=== PATIENT | female | born 1940 | race Caucasian/White ===

== ENCOUNTER → 2023-12-27 13:03 | Outpatient (REF) | payer OTHER, SELFPAY | LOC: RCS 13:03 | PROVIDERS: ATTENDING PHYSICIAN Nurse Practitioner Family; FAMILY PHYSICIAN Family Medicine; REFERRING PHYSICIAN Internal Medicine Cardiovascular Disease | DX: R07.9 Chest pain, unspecified (principal) | CPT/HCPCS: 93005 ==

== ENCOUNTER → 2023-12-31 11:19 | Outpatient (REF) | payer OTHER, SELFPAY | LOC: RAD 11:19 | PROVIDERS: ATTENDING PHYSICIAN Pain Medicine Interventional Pain Medicine; FAMILY PHYSICIAN Family Medicine | DX: M54.12 Radiculopathy, cervical region (principal) | CPT/HCPCS: 72040 ==

== ENCOUNTER → 2024-03-07 11:30 | Outpatient (REF) | payer OTHER, SELFPAY ==
[2024-03-07 12:32] LABS: % Basophils 0.9 % (0-2); % Eosinophils 1.8 % (0-6); % Immature Granulocytes 0.2 % (0-0.5); % Lymphocytes 21.5 % (20.5-51.1); % Monocytes 6.9 % (1.7-9.3); % Neutrophils 68.7 % (42.2-75.2); Absolute Eosinophils 0.1 10^3/uL (0-0.7); Absolute Monocytes 0.3 10^3/uL (0.1-0.6); Absolute Neutrophils 3.1 10^3/uL (1.4-6.5); Hematocrit 37.1 % (37.0-47.0); Hemoglobin 12.5 g/dL (12.0-16.0); Mean Corp Hgb Conc. 33.7 g/dL (33.0-37.0); Mean Corpuscular Hgb 33.4 pg (27.0-31.0); Mean Corpuscular Volume 99.2 fL (81.0-99.0); Mean Platelet Volume 9.6 fL (7.4-10.4); Nucleated Red Blood Cells % 0 %; Platelet Count 205 10^3/uL (130-400); Red Blood Cell Count 3.74 10^6/uL (4.20-5.40); Red Cell Dist. Width 12.7 % (11.5-14.5); White Blood Cell Count 4.5 10^3/uL (4.8-10.8)
[2024-03-07 13:17] LABS: Iron 150 ug/dl (37-170)
[2024-03-07 13:26] LABS: Percent Saturation 49 % (20-50); Total Iron Binding Capacity 306 ug/dl (265-497)
[2024-03-07 13:40] LABS: Ferritin 80.7 ng/ml (11.1-264.0)
== END ==
LOC: REG 11:30
PROVIDERS: ATTENDING PHYSICIAN Internal Medicine Hematology & Oncology; FAMILY PHYSICIAN Family Medicine
DX: R23.3 Spontaneous ecchymoses (principal); R79.9 Abnormal finding of blood chemistry, unspecified; D50.9 Iron deficiency anemia, unspecified; D52.8 Other folate deficiency anemias; D68.00 Von Willebrand disease, unspecified; D51.9 Vitamin B12 deficiency anemia, unspecified
CPT/HCPCS: 36415; 82728; 83540; 83550; 85025

== ENCOUNTER 2024-04-12 02:00 | Emergency (ER) | payer OTHER, SELFPAY ==
[2024-04-12 02:06] VITALS: BP 133/95
[2024-04-12 02:12] VITALS: BP 133/95; BMI 20.3
[2024-04-12 02:51] LABS: % Basophils 1.1 % (0-2); % Eosinophils 4.5 % (0-6); % Immature Granulocytes 0.3 % (0-0.5); % Lymphocytes 35.4 % (20.5-51.1); % Monocytes 7.9 % (1.7-9.3); % Neutrophils 50.8 % (42.2-75.2); Absolute Eosinophils 0.2 10^3/uL (0-0.7); Absolute Lymphocytes 1.3 10^3/uL (1.2-3.4); Absolute Monocytes 0.3 10^3/uL (0.1-0.6); Absolute Neutrophils 1.9 10^3/uL (1.4-6.5); Hematocrit 41.4 % (37.0-47.0); Hemoglobin 13.9 g/dL (12.0-16.0); Mean Corp Hgb Conc. 33.6 g/dL (33.0-37.0); Mean Corpuscular Hgb 33.7 pg (27.0-31.0); Mean Corpuscular Volume 100.2 fL (81.0-99.0); Mean Platelet Volume 9.6 fL (7.4-10.4); Nucleated Red Blood Cells % 0 %; Platelet Count 168 10^3/uL (130-400); Red Blood Cell Count 4.13 10^6/uL (4.20-5.40); Red Cell Dist. Width 13.3 % (11.5-14.5); White Blood Cell Count 3.8 10^3/uL (4.8-10.8)
[2024-04-12 03:00] VITALS: BP 108/85
[2024-04-12 03:09] LABS: ALT (SGPT) 20 U/L (0-35); AST (SGOT) 28 U/L (14-36); Albumin 4.4 g/dl (3.5-5.0); Alkaline Phosphatase 99 U/L (38-126); Blood Urea Nitrogen 17 mg/dl (7-17); Calcium 9.4 mg/dl (8.4-10.2); Carbon Dioxide 29 mmol/L (22-30); Chloride 104 mmol/L (98-107); Estimated Creatinine Clearance 47 ml/min; Glucose 90 mg/dl (70-99); Potassium 3.6 mmol/L (3.5-5.1); Sodium 140 mmol/L (135-145); Total Bilirubin 0.4 mg/dl (0.2-1.3); Total Protein 6.8 g/dl (6.3-8.2); eGFR > 60.00
[2024-04-12 03:21] LABS: Troponin I < 0.012 ng/ml
--- NOTE | 2024-04-12 03:26 | ED.GENMED ---
History of Present Illness
<PAUL Pena - Last Filed: 04/12/24 06:10>
General
Chief Complaint: Breathing Problem
Source: patient
Exam Limitations: none
Time Seen by Provider: 04/12/24 03:12
Travel History
Have you had any contact with someone who has COVID-19?: No
Do you have any symptoms of coronavirus? Fever > 100 degrees, chills, cough, shortness of breath, sore throat, loss of taste or smell, muscle aches, or headache?: Yes
Symptoms:: pulse ox 100%
History of Present Illness
History of Present Illness:
83 YO F with a PMH of AFIB managed with Eliquis and Diltiazem, lower blepharoplasty (March 2024) presents here today for SOB x 3 hours. Pt states she checked her pulse before going to bed with a reading of 110. At 12:45 a.m., she checked again, and it
was still elevated. Pt was worried and decided to call control room tender cardiology, and then after being instructed to come. Pt complained of chest congestion initially, but states it has subsided. Denies N,V, diaphoresis, and diarrhea.
Past History
<PAUL Pena - Last Filed: 04/12/24 06:10>
Past History
ED Past Medical History: Arrthythmia, HTN, Hypercholesterolemia, Valvular disease, Psychiatric and Other
ED Past Surgical History: Gynecological and Other
Social History
Tobacco: Non-smoker
Alcohol: Occasional
Drug: None
Personal:
Living: alone
Employment: Retired
Family History
Family History: Other (Noncontributory)
Review of Systems
<PAUL Pena - Last Filed: 04/12/24 06:10>
Review of Systems
Constitutional: Reports no symptoms
EENT: Reports no symptoms
Respiratory: Reports no symptoms
Cardiac: Reports other (Chest congestion)
ABD/GI: Reports no symptoms
: Reports no symptoms
Musculoskeletal: Reports no symptoms
Neurological: Reports no symptoms
Phy Exam
<Christi Lopez [facility] - Last Filed: 04/12/24 06:10>
Physical Exam
Physical Exam:
Normal S1 and S1, breath sounds are equal B/L
General Physical Exam
General Presentation: well appearing
General age: appears stated age
General Habitus: normal
General Mental: alert
Cardiovascular Exam
Cardiovascular Exam: regular rate/rhythm
Pulmonary Exam
Pulmonary Exam: lungs clear, no respiratory distress, no rales and no rhonchi
Scores
<Christi Lopez [facility] - Last Filed: 04/12/24 06:10>
Heart Failure Risk
Heart Failure Risk Score: Not Applicable
Course
<Christi Lopez [facility] - Last Filed: 04/12/24 06:10>
Orders/Labs/Results
Orders:
Orders
04/12/24 02:08
Electrocardiogram (*1) Urgent
Reason for Study: Other
Other Reason for Exam: Respiratory Distress
EKG- Treatment ONCE
04/12/24 02:19
Comprehensive Metabolic Panel Urgent
04/12/24 02:20
Complete Blood Count/With Diff Urgent
Troponin I Urgent
Abnormal Lab Results
04/12/24
02:20
WBC 3.8 L 10^3/uL
(4.8-10.8)
RBC 4.13 L 10^6/uL
(4.20-5.40)
MCV 100.2 H fL
(81.0-99.0)
MCH 33.7 H pg
(27.0-31.0)
04/12/24 02:20
04/12/24 02:19
Vital Signs
Initial and Last Documented VS:
Initial Vital Signs
BP
133/95
04/12/24 02:06
Last Documented Vital Signs
Temp Pulse Resp BP Pulse Ox
97.5 F 67 19 108/85 99
04/12/24 02:12 04/12/24 03:00 04/12/24 03:00 04/12/24 03:00 04/12/24 02:45
<Sam Jiang, DO - Last Filed: 04/12/24 04:31>
Orders/Labs/Results
Orders:
Orders
04/12/24 02:08
Electrocardiogram (*1) Urgent
Reason for Study: Other
Other Reason for Exam: Respiratory Distress
EKG- Treatment ONCE
04/12/24 02:19
Comprehensive Metabolic Panel Urgent
04/12/24 02:20
Complete Blood Count/With Diff Urgent
Troponin I Urgent
Abnormal Lab Results
04/12/24
02:20
WBC 3.8 L 10^3/uL
(4.8-10.8)
RBC 4.13 L 10^6/uL
(4.20-5.40)
MCV 100.2 H fL
(81.0-99.0)
MCH 33.7 H pg
(27.0-31.0)
04/12/24 02:20
04/12/24 02:19
Vital Signs
Initial and Last Documented VS:
Initial Vital Signs
BP
133/95
04/12/24 02:06
Last Documented Vital Signs
Temp Pulse Resp BP Pulse Ox
97.5 F 67 19 108/85 99
04/12/24 02:12 04/12/24 03:00 04/12/24 03:00 04/12/24 03:00 04/12/24 02:45
<PAUL Pena - Last Filed: 04/12/24 06:10>
MDM/Problems Addressed
Differential Diagnosis Includes:
AFIB exacerbation, anxiety, anxiousnes
MDM/Problems Addressed:
SOB x 3 hours
Acute Exacerbation and/or Progression of Chronic Illness:
AFIB
<PAUL Pena - Last Filed: 04/12/24 06:10>
*Critical Care Note
Total Time (30-74mins, 75-104mins- exclusive of procedures): Not Applicable
ED Attending Note
<PAUL Pena - Last Filed: 04/12/24 06:10>
-
Portions of this chart may have been created with voice recognition software.� Occasional wrong word or��sound alike� substitutions may have occurred due to the inherent limitations of voice recognition software.
<Sam Jiang DO - Last Filed: 04/12/24 04:31>
ED Attending Note
Patient seen and examined by attending physician: Yes
I performed the substantive portion of visit, reviewed & personally made and approve the management plan that is documented in note by myself or LUIGI.: Yes
ED Attending Note:
Pleasant 83-year-old female that presents with shortness of breath for the last 3 hours. Patient checked her pulses on a pulse ox machine before going to bed. She was concerned because of his 110 bpm. Patient states that when her heart rate is
not elevated, she is usually in atrial fibrillation. She also noticed that the pulse ox was reading 38%. She called Dr. Centeno, her pipe line repairer. No return call was made so she came to the emergency department. Patient was seen in conjunction
with the PA student. I have reviewed and agree with the history and treatment plan presented. On my independent physical exam, patient is awake, alert, and oriented x3 at time of my exam patient is resting comfortably. She is in normal sinus
rhythm. Abdomen soft nontender nondistended no hepatosplenomegaly. Moves all 4 extremities. Mentating appropriately. Patient to be discharged home.
Discharge Plan
Departure
Patient Disposition: Home (Routine Discharge)
Date of Disposition: 04/12/24
Time of Disposition: 04:25
Patient with high blood pressure during this ER visit?: Yes
Discharge Problem:
A-fib, Anxiety
Instructions: Atrial Fibrillation (DC), Shortness of Breath (Dyspnea) (DC)
Prescriptions:
No Action
ascorbic acid (vitamin C) [Vitamin C] 500 MG tablet
1,000 mg PO DAILY
cholecalciferol (vitamin D3) [Vitamin D3] 1,000 UNIT capsule
1,000 unit PO DAILY
diltiazem HCl [Cardizem LA] 240 MG tablet extended release 24 hr
240 mg PO BID
apixaban [Eliquis] 2.5 MG tablet
2.5 mg PO BID
L.acidoph, paracasei,B. lactis 1 EACH capsule
1 ea PO DAILY
uuh-pprq-ywgrp-kqfa-bap-ifj-in [Digestive Enzymes(mal,lac,inv)] 220 MG capsule
1 ea PO .DINNER
Gb Plus
1 tab PO DAILY
calcium carbonate 600 MG tablet
600 mg PO HS
mupirocin 22 GM ointment
22 gm TP TIDPRN PRN (Reason: sore lesions) Qty: 22 0RF
clindamycin HCl 300 MG capsule
300 mg PO TID Qty: 15 0RF
Referrals:
Amy Hunt DO [Family Provider] -
Activity Restrictions/Additional Instructions:
It was a pleasure meeting you and taking part in your care. We hope for your continued healing and wellness.
Please read discharge instructions in their entirety. However, they are for general education and may not describe your exact diagnosis at discharge. Information on your ER visit and medical conditions were discussed with you along with appropriate
follow up information...
If indicated, please take your medications as instructed and indicated on discharge paperwork.
Please schedule a follow up appointment as directed. Call to schedule an appointment
Please return to the emergency department with ANY change in, persisting, or worsening of symptoms. If any of your symptoms do not improve, or persist, or become more severe within 6-12 hours, please return to the emergency department for further
care.
Please return to the emergency department if you develop a headache, neck pain/stiffness, fever greater than 100.4F, chest pain, shortness of breath, persistent nausea, vomiting, slurred speech, difficulty walking, numbness/tingling, weakness, signs
of infection or any other symptoms that are worrisome to you.
If you have any questions or concerns please do not hesitate to call the Hospital at or E-mail me directly at [email or web address]
Interventions
Interventions:
*Risk Screen - Suicide Last Done: 04/12/24 02:12
*General Assessment Last Done: 04/12/24 02:12
*Neglect/Abuse Screening Last Done: 04/12/24 02:12
ED- Fall Risk Assessment Last Done: 04/12/24 05:10
*ED COVID-19 Vaccine History Last Done: 04/12/24 02:12
*Nursing Disposition Last Done: 04/12/24 05:10
ED- Cardiac Assessment Last Done: 04/12/24 02:12
ED- Pulmonary Assessment Last Done: 04/12/24 02:12
Discharge Date and Time
Discharge Date/Time: 04/12/24 05:11
Print Language: PRYDEINIG
== END 2024-04-12 05:11 | disposition home or self-care (01) ==
LOC: EMR 02:00
PROVIDERS: EMERGENCY PHYSICIAN Student in an Organized Health Care Education/Training Program; FAMILY PHYSICIAN Family Medicine
DX: I48.91 Unspecified atrial fibrillation (principal); F41.9 Anxiety disorder, unspecified; R06.02 Shortness of breath; R09.89 Other specified symptoms and signs involving the circulatory and respiratory systems; I10 Essential (primary) hypertension; E78.00 Pure hypercholesterolemia, unspecified; I38 Endocarditis, valve unspecified; Z79.01 Long term (current) use of anticoagulants; Z98.890 Other specified postprocedural states; Z88.1 Allergy status to other antibiotic agents; Z88.2 Allergy status to sulfonamides
CPT/HCPCS: 99283; 80053; 84484; 85025; 93005

== ENCOUNTER 2024-04-16 22:25 | Emergency (ER) | payer OTHER, SELFPAY ==
[2024-04-16 22:28] VITALS: BP 168/90
--- NOTE | 2024-04-17 01:10 | ED.GENMED ---
History of Present Illness
General
Chief Complaint: Skin Problem
Source: patient
Exam Limitations: none
Time Seen by Provider: 04/17/24 00:55
Travel History
Have you had any contact with someone who has COVID-19?: No
Do you have any symptoms of coronavirus? Fever > 100 degrees, chills, cough, shortness of breath, sore throat, loss of taste or smell, muscle aches, or headache?: No
History of Present Illness
History of Present Illness:
This is a 83 year old female that comes in with c/o left chest swelling. States that AT 3pm yesterday she stared with this left chest swelling. States that this kept getting bigger and bigger. States that the swelling went under her arm. States that
she called her social problems specialist and they were going go see patient tomorrow. State that her left arm started to throb so she felt like she couldn't wait. Denies any fever, chills, chest pain, SOB, abd pain, nausea, vomiting, diarrhea, headache,
dizziness, urinary burning.
Past History
Past History
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
ED Past Surgical History: Appendectomy, Gynecological (Tubal, Hysterectomy) and Other (Breast lumpectomy, Lung surgery, Upper eye lid surgery)
Social History
Tobacco: Non-smoker
Alcohol: Daily (Wine 1 glass)
Drug: None
Personal:
Living: alone
Employment: Retired
Family History
Family History: Other (Noncontributory)
Review of Systems
Review of Systems
All Other Systems: ROS reviewed and negative except as documented in HPI and ROS
Constitutional: Reports no symptoms; Denies fever or chills
EENT: Reports no symptoms
Respiratory: Reports no symptoms; Denies cough or trouble breathing
Cardiac: Reports other (Left chest/axillary area swelling); Denies chest pain
ABD/GI: Reports no symptoms; Denies abdominal pain, nausea, vomiting or diarrhea
: Reports no symptoms; Denies dysuria, frequency or urgency
Musculoskeletal: Reports no symptoms
Skin: Reports no symptoms
Neurological: Reports no symptoms; Denies dizzy or headache
Psychiatric: Reports no symptoms
Phy Exam
General Physical Exam
General Presentation: no apparent distress
General age: appears stated age
General Skin: warm and dry
General Habitus: elderly
General Mental: alert
General Hydration: dry mucous membranes
ENT Exam
ENT Exam: TM's normal, pharynx normal and neck supple
Eye Exam
Eye Exam: EOMI
Cardiovascular Exam
Cardiovascular Exam: regular rate/rhythm, no edema, normal peripheral pulses and other (Left lateral chest/axillary area with hard palpable mass, )
Pulmonary Exam
Pulmonary Exam: lungs clear, no respiratory distress, no rales, chest non tender, no crackles, no rhonchi, no wheezing and no cough
Gastrointestinal Exam
Gastrointestinal Exam: normal bowel sounds, non tender, soft, no organomegaly, no pulsatile mass and non distended
Musculoskeletal Exam
Musculoskeletal Exam: full ROM and no edema
Skin Exam
Skin Exam: normal color, warm/dry, no rash and no petechia
Psychiatric Exam
Psychiatric Exam: normal mood/affect
Course
Orders/Labs/Results
Orders:
Orders
04/17/24 01:08
CR Chest - 2 Views Urgent
Comment:
Reason For Exam: Mass left upper chest
US Arms, Left [US Periph Venous UPPER Ext LT] Urgent
Comment:
Reason For Exam: Pain left arm.
04/17/24 01:14
Complete Blood Count/With Diff Urgent
Comprehensive Metabolic Panel Urgent
04/17/24 01:36
Electrocardiogram (*1) Urgent
Reason for Study: Other
Other Reason for Exam: left arm pain,
EKG- Treatment ONCE
04/17/24 02:12
CT Chest With Iv Contrast Urgent
Comment:
Reason For Exam: Left sided chest/axillary mass
04/17/24 02:21
Troponin I Urgent
Abnormal Lab Results
04/17/24
01:14
RBC 3.83 L 10^6/uL
(4.20-5.40)
Hct 36.7 L %
(37.0-47.0)
MCH 33.7 H pg
(27.0-31.0)
Lymphocytes % 19.2 L %
(20.5-51.1)
Glucose 101 H mg/dl
(70-99)
04/17/24 01:14
04/17/24 01:14
Glucose nonfasting, Troponin <0.012.
Vital Signs
Initial and Last Documented VS:
Initial Vital Signs
Temp Pulse Resp BP Pulse Ox
97.8 F 80 22 168/90 98
04/16/24 22:28 04/16/24 22:28 04/16/24 22:28 04/16/24 22:28 04/16/24 22:28
Last Documented Vital Signs
Temp Pulse Resp BP Pulse Ox
97.8 F 87 28 153/57 96
04/16/24 22:28 04/17/24 04:01 04/17/24 04:01 04/17/24 04:01 04/17/24 04:01
MDM/Problems Addressed
Differential Diagnosis Includes:
Breast Cancer, DVT left arm
MDM/Problems Addressed:
This is a 83 year old female that comes in with c/o left breast/axillary swelling. States that this started at 3pm yesterday and then she started with left arm pain.
Will get labs and US left arm.
Back into see patient. Explained that the US was negative for DVT but there is a concerning mass in this area. This could be an abscess or hematoma. Will get CT of the chest with IV contrast.
Chronic conditions affecting care:
NA
Acute Exacerbation and/or Progression of Chronic Illness:
NA
*Radiology
Radiology exam reviewed: preliminary read by ED provider (Chest- negative for active disease. Haziness in the left chest/axillary soft tissue. ) and radiology read reviewed (US- Lobulated heterogeneous mass in the axilla measuring 8.4 X 3.7 X 5.2cm
concerning for adenopathy or malignancy, vs hematoma. Consider CT with IV contrast for further evaluation if renal function permitting. NO evidence of Deep venous thrombosis. Normal compression, augmentation, and blood flow.)
*Pulse Oximetry
Patient hypoxic: no
*EKG
Interpreted by ED Provider?: Yes
Heart Rate: 66
Rate: normal
Rhythm: sinus
[place]: left axis deviation
Interval: first degree heart block
QRS Pattern: right bundle branch block
Ischemia: T-wave inversion (III, aVR, aVF, V1, V2, V3, V4, Checked by Dr. Jiang)
*Doctor Podiatric Medicine Interpretation
Rate: Doctor Podiatric Medicine- N/A
*Critical Care Note
Total Time (30-74mins, 75-104mins- exclusive of procedures): Not Applicable
ED Attending Note
-
Portions of this chart may have been created with voice recognition software.� Occasional wrong word or��sound alike� substitutions may have occurred due to the inherent limitations of voice recognition software.
Discharge Plan
Departure
Patient Disposition: Home (Routine Discharge)
Date of Disposition: 04/17/24
Time of Disposition: 05:56
Patient with high blood pressure during this ER visit?: Yes
Condition: Good
Covid-19: Not Applicable
Discharge Problem:
Chest wall mass, Enlarged lymph node
Instructions: Lymph Node Biopsy, Lymphadenitis (DC)
Prescriptions:
New
tramadol 25 mg tablet
25 mg PO Q6H PRN (Reason: Pain) Qty: 10 0RF
No Action
ascorbic acid (vitamin C) [Vitamin C] 500 MG tablet
1,000 mg PO DAILY
cholecalciferol (vitamin D3) [Vitamin D3] 1,000 UNIT capsule
1,000 unit PO DAILY
diltiazem HCl [Cardizem LA] 240 MG tablet extended release 24 hr
240 mg PO BID
apixaban [Eliquis] 2.5 MG tablet
2.5 mg PO BID
L.acidoph, paracasei,B. lactis 1 EACH capsule
1 ea PO DAILY
neq-rldx-csuvq-uqnl-ulz-wsv-in [Digestive Enzymes(mal,lac,inv)] 220 MG capsule
1 ea PO .DINNER
Gb Plus
1 tab PO DAILY
calcium carbonate 600 MG tablet
600 mg PO HS
mupirocin 22 GM ointment
22 gm TP TIDPRN PRN (Reason: sore lesions) Qty: 22 0RF
clindamycin HCl 300 MG capsule
300 mg PO TID Qty: 15 0RF
Referrals:
Amy Hunt DO [Family Provider] - Follow up in 5-7 days (Follow up later this week as we discussed. )
Activity Restrictions/Additional Instructions:
Thank you for visiting the Emergency Department at [facility].
1. Please schedule a follow up appointment as directed. Call first thing tomorrow morning to make an appointment.
2. If indicated, please take your medications as instructed and indicated on discharge paperwork.
3. If any of your symptoms do not improve, or persist, or become more severe within 6-12 hours, please return to the emergency department for further care.
4. Please return to the emergency department if you develop a headache, neck pain/stiffness, fever greater than 100.4F, chest pain, shortness of breath, persistent nausea, vomiting, slurred speech, difficulty walking, numbness/tingling, weakness,
signs of infection or any other symptoms that are worrisome to you.
Please call [phone] if you have any questions.
Interventions
Interventions:
*Risk Screen - Suicide Last Done: 04/16/24 22:28
*General Assessment Last Done: 04/17/24 01:14
*Neglect/Abuse Screening Last Done: 04/16/24 22:28
ED- Fall Risk Assessment Last Done: 04/17/24 02:54
*ED COVID-19 Vaccine History Last Done: 04/17/24 01:14
*Nursing Disposition Last Done: 04/17/24 06:34
ED-Skin Assessment Last Done: 04/17/24 02:55
Discharge Date and Time
Discharge Date/Time: 04/17/24 06:35
Print Language: POLISH
[2024-04-17 01:21] VITALS: BP 158/66
[2024-04-17 01:27] LABS: % Basophils 0.6 % (0-2); % Eosinophils 2.2 % (0-6); % Immature Granulocytes 0.3 % (0-0.5); % Lymphocytes 19.2 % (20.5-51.1); % Monocytes 7.6 % (1.7-9.3); % Neutrophils 70.1 % (42.2-75.2); Absolute Eosinophils 0.2 10^3/uL (0-0.7); Absolute Lymphocytes 1.3 10^3/uL (1.2-3.4); Absolute Monocytes 0.5 10^3/uL (0.1-0.6); Absolute Neutrophils 4.7 10^3/uL (1.4-6.5); Hematocrit 36.7 % (37.0-47.0); Hemoglobin 12.9 g/dL (12.0-16.0); Mean Corp Hgb Conc. 35.1 g/dL (33.0-37.0); Mean Corpuscular Hgb 33.7 pg (27.0-31.0); Mean Corpuscular Volume 95.8 fL (81.0-99.0); Mean Platelet Volume 8.9 fL (7.4-10.4); Nucleated Red Blood Cells % 0 %; Platelet Count 191 10^3/uL (130-400); Red Blood Cell Count 3.83 10^6/uL (4.20-5.40); Red Cell Dist. Width 13.4 % (11.5-14.5); White Blood Cell Count 6.7 10^3/uL (4.8-10.8)
[2024-04-17 01:47] LABS: ALT (SGPT) 21 U/L (0-35); AST (SGOT) 31 U/L (14-36); Albumin 4.5 g/dl (3.5-5.0); Alkaline Phosphatase 109 U/L (38-126); Blood Urea Nitrogen 15 mg/dl (7-17); Calcium 9.9 mg/dl (8.4-10.2); Carbon Dioxide 26 mmol/L (22-30); Chloride 102 mmol/L (98-107); Estimated Creatinine Clearance 55 ml/min; Glucose 101 mg/dl (70-99); Potassium 3.8 mmol/L (3.5-5.1); Sodium 137 mmol/L (135-145); Total Bilirubin 0.6 mg/dl (0.2-1.3); eGFR > 60.00
[2024-04-17 02:56] VITALS: BP 155/56
--- NOTE | 2024-04-17 02:56 | EDRN ---
Back from xray and ultrasound and hooked back up and sent troponin added on, patient resting comfortably
[2024-04-17 02:57] LABS: Troponin I < 0.012 ng/ml
--- NOTE | 2024-04-17 03:59 | EDRN ---
Patient ambulated to the restroom without difficulty, patient asking to speak with Luz, RAIL DIRECTOR informed her Luz went home and now Dr. Mohamud is in charge of her case, patient asking next steps, informed her that she will need to go to [facility] to
get better imaging of the lump on her chest, patient understands, lights turned down for patients comfort
[2024-04-17 04:01] VITALS: BP 153/57
== END 2024-04-17 06:35 | disposition home or self-care (01) ==
LOC: EMR 22:25
PROVIDERS: Clinical Nurse Specialist Family Health; EMERGENCY PHYSICIAN Student in an Organized Health Care Education/Training Program; FAMILY PHYSICIAN Family Medicine
DX: R59.9 Enlarged lymph nodes, unspecified (principal); I48.91 Unspecified atrial fibrillation; I10 Essential (primary) hypertension; E78.00 Pure hypercholesterolemia, unspecified; I38 Endocarditis, valve unspecified; F41.9 Anxiety disorder, unspecified; K58.9 Irritable bowel syndrome, unspecified; Z87.19 Personal history of other diseases of the digestive system; Z90.49 Acquired absence of other specified parts of digestive tract; Z90.710 Acquired absence of both cervix and uterus
CPT/HCPCS: 99284; 71046; 71260; 80053; 84484; 85025; 93005; 93971; Q9967

== ENCOUNTER → 2024-04-24 08:11 | Outpatient (REF) | payer OTHER, SELFPAY | LOC: WDC 08:11 | PROVIDERS: ATTENDING PHYSICIAN Family Medicine | DX: N63.20 Unspecified lump in the left breast, unspecified quadrant (principal); N63.32 Unspecified lump in axillary tail of the left breast | CPT/HCPCS: 76642; 77061; 77065 ==

== ENCOUNTER 2024-04-30 16:45 | Emergency (ER) | payer OTHER, SELFPAY ==
[2024-04-30 16:49] VITALS: BP 160/76
--- NOTE | 2024-04-30 17:24 | ED.GENMED ---
History of Present Illness
General
Chief Complaint: Nose Bleed
Source: patient, family and ambulance crew
Exam Limitations: none
Time Seen by Provider: 04/30/24 16:57
Nursing documentation reviewed up to this point in time: agreed with
Travel History
Have you had any contact with someone who has COVID-19?: No
Do you have any symptoms of coronavirus? Fever > 100 degrees, chills, cough, shortness of breath, sore throat, loss of taste or smell, muscle aches, or headache?: No
History of Present Illness
History of Present Illness:
83-year-old female with past medical history of A-fib currently on Eliquis, hyperlipidemia, anxiety presenting to the emergency department today with concerns of right-sided nosebleed that occurred when she was going out to dinner denies any
specific trauma to the area denies additional concerns otherwise no lightheadedness no chest pain or shortness of breath. Patient does claim that she is not currently on show fibrillation she was in A-fib 2 and half weeks ago but has not been in
A-fib since from the best of her knowledge.
Past History
Past History
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
ED Past Surgical History: Appendectomy, Gynecological (Tubal, Hysterectomy) and Other (Breast lumpectomy, Lung surgery, Upper eye lid surgery)
Social History
Tobacco: Non-smoker
Alcohol: Daily (Wine 1 glass)
Drug: None
Personal:
Living: alone
Employment: Retired
Family History
Family History: Other (Noncontributory)
Review of Systems
Review of Systems
Allergies reviewed?: Yes
All Other Systems: ROS reviewed and negative except as documented in HPI and ROS
Phy Exam
Physical Exam
Physical Exam:
GENERAL: Alert , in no apparent distress
EYE: pupils equal and reactive
NECK: Supple, no significant adenopathy.
ENT: Steady flow blood from the right nostril as soon as patient takes pressure off there is a steady stream of blood. She briefly blew her nose but unable to visualize the specific location of bleeding. There is no blood coming from the left
nostril. o/p clr, mmm.
CARDIAC: Regular rate and rhythm .
LUNGS: Clear breath sounds bilaterally, no acute respiratory distress, no wheezes/rales/rhonchi
ABDOMEN: Soft, without focal tenderness, no r/g, no cvat
NEUROLOGICAL: Alert and oriented, no focal neuro deficits
SKIN: Warm and dry, skin intact.
MUSCULOSKELETAL: No edema, well perfused.
PSYCH: Normal and appropriate interaction.
Course
Orders/Labs/Results
Orders:
Orders
04/30/24 17:20
CMP [Comprehensive Metabolic Panel] Urgent
Complete Blood Count/With Diff Urgent
Abnormal Lab Results
04/30/24
17:20
RBC 3.57 L 10^6/uL
(4.20-5.40)
Hct 34.0 L %
(37.0-47.0)
MCH 33.6 H pg
(27.0-31.0)
Absolute Lymphs (auto) 1.0 L 10^3/uL
(1.2-3.4)
Lymphocytes % 18.9 L %
(20.5-51.1)
Glucose 111 H mg/dl
(70-99)
04/30/24 17:20
04/30/24 17:20
Vital Signs
Initial and Last Documented VS:
Initial Vital Signs
BP
160/76
04/30/24 16:49
Last Documented Vital Signs
BP
160/76
04/30/24 16:49
Procedures
Nosebleed
Drug treatment: none
Treatment: other (Anterior Rhino Rocket right nostril)
Post treatment bleeding: none- good control
MDM/Problems Addressed
MDM/Problems Addressed:
83-year-old female presenting to the emergency department with concerns of bleeding from the right nostril after going to dinner tonight but denies any trauma. Denies additional symptoms otherwise. Bleeding unable to be controlled by pressure came
in by EMS. There was a steady flow of bleeding from the right nostril unable to visualize the location of bleeding considering this a packing was placed and inflated with prompt resolution of ongoing bleeding. Monitored here for over an hour
without significant ongoing bleeding. Hemoglobin of 12.0 stable for discharge advised for close ENT follow-up. Return precautions given.
*Critical Care Note
Total Time (30-74mins, 75-104mins- exclusive of procedures): Not Applicable
ED Attending Note
-
Portions of this chart may have been created with voice recognition software.� Occasional wrong word or��sound alike� substitutions may have occurred due to the inherent limitations of voice recognition software.
Discharge Plan
Departure
Patient Disposition: Home (Routine Discharge)
Date of Disposition: 04/30/24
Time of Disposition: 18:19
Patient with high blood pressure during this ER visit?: No
Condition: Good
Covid-19: Not Applicable
Discharge Problem:
Nosebleed
Instructions: Nosebleeds (DC)
Prescriptions:
No Action
ascorbic acid (vitamin C) [Vitamin C] 500 MG tablet
1,000 mg PO DAILY
cholecalciferol (vitamin D3) [Vitamin D3] 1,000 UNIT capsule
1,000 unit PO DAILY
diltiazem HCl [Cardizem LA] 240 MG tablet extended release 24 hr
240 mg PO BID
apixaban [Eliquis] 2.5 MG tablet
2.5 mg PO BID
L.acidoph, paracasei,B. lactis 1 EACH capsule
1 ea PO DAILY
irv-cuhq-hsboo-lxtu-nho-tzt-in [Digestive Enzymes(mal,lac,inv)] 220 MG capsule
1 ea PO .DINNER
Gb Plus
1 tab PO DAILY
calcium carbonate 600 MG tablet
600 mg PO HS
mupirocin 22 GM ointment
22 gm TP TIDPRN PRN (Reason: sore lesions) Qty: 22 0RF
clindamycin HCl 300 MG capsule
300 mg PO TID Qty: 15 0RF
tramadol 25 mg tablet
25 mg PO Q6H PRN (Reason: Pain) Qty: 10 0RF
Referrals:
Ed Salazar MD [Active] - Follow up in 2-3 days
Amy Hunt DO [Family Provider] -
Activity Restrictions/Additional Instructions:
You came to the emergency department today with concerns of a nosebleed. This was controlled here with a nasal packing. Please follow-up with Dr. Salazar which is an ENT doctor in 3 days. Please call tomorrow to set up an appointment. Return to
the emergency department for any worsening, new or concerning symptoms. Please hold your Eliquis until follow-up. Immediately return for any worsening or progressing of symptoms.
Discharge Date and Time
Print Language: LAO
[2024-04-30 17:28] LABS: % Basophils 0.8 % (0-2); % Eosinophils 1.1 % (0-6); % Immature Granulocytes 0.4 % (0-0.5); % Lymphocytes 18.9 % (20.5-51.1); % Monocytes 5.9 % (1.7-9.3); % Neutrophils 72.9 % (42.2-75.2); Absolute Eosinophils 0.1 10^3/uL (0-0.7); Absolute Monocytes 0.3 10^3/uL (0.1-0.6); Absolute Neutrophils 3.9 10^3/uL (1.4-6.5); Mean Corp Hgb Conc. 35.3 g/dL (33.0-37.0); Mean Corpuscular Hgb 33.6 pg (27.0-31.0); Mean Corpuscular Volume 95.2 fL (81.0-99.0); Mean Platelet Volume 8.7 fL (7.4-10.4); Nucleated Red Blood Cells % 0 %; Platelet Count 329 10^3/uL (130-400); Red Blood Cell Count 3.57 10^6/uL (4.20-5.40); Red Cell Dist. Width 13.2 % (11.5-14.5); White Blood Cell Count 5.3 10^3/uL (4.8-10.8)
[2024-04-30 17:30] VITALS: BP 145/78
[2024-04-30 17:42] LABS: ALT (SGPT) 31 U/L (0-35); AST (SGOT) 31 U/L (14-36); Albumin 4.2 g/dl (3.5-5.0); Alkaline Phosphatase 103 U/L (38-126); Blood Urea Nitrogen 14 mg/dl (7-17); Calcium 9.3 mg/dl (8.4-10.2); Carbon Dioxide 22 mmol/L (22-30); Chloride 104 mmol/L (98-107); Glucose 111 mg/dl (70-99); Potassium 4.2 mmol/L (3.5-5.1); Sodium 136 mmol/L (135-145); Total Bilirubin 0.5 mg/dl (0.2-1.3); Total Protein 6.7 g/dl (6.3-8.2); eGFR > 60.00
== END 2024-04-30 19:34 | disposition home or self-care (01) ==
LOC: EMR 16:45
PROVIDERS: EMERGENCY PHYSICIAN Emergency Medicine; FAMILY PHYSICIAN Family Medicine
DX: R04.0 Epistaxis (principal); I48.91 Unspecified atrial fibrillation; E78.00 Pure hypercholesterolemia, unspecified; F41.9 Anxiety disorder, unspecified; I10 Essential (primary) hypertension; K58.9 Irritable bowel syndrome, unspecified; Z79.01 Long term (current) use of anticoagulants; Z87.19 Personal history of other diseases of the digestive system; Z90.49 Acquired absence of other specified parts of digestive tract; Z90.710 Acquired absence of both cervix and uterus
CPT/HCPCS: 99283; 30901; 80053; 85025

== ENCOUNTER → 2024-05-08 10:05 | Outpatient (REF) | payer OTHER, SELFPAY | LOC: WDC 10:05 | PROVIDERS: ATTENDING PHYSICIAN Family Medicine | DX: R92.8 Other abnormal and inconclusive findings on diagnostic imaging of breast (principal) | CPT/HCPCS: 76642 ==

== ENCOUNTER → 2024-07-04 08:11 | Outpatient (REF) | payer OTHER, SELFPAY | LOC: WDC 08:11 | PROVIDERS: ATTENDING PHYSICIAN Family Medicine | DX: R92.8 Other abnormal and inconclusive findings on diagnostic imaging of breast (principal) | CPT/HCPCS: 76642 ==

== ENCOUNTER → 2024-07-20 08:05 | Outpatient (REF) | payer OTHER, SELFPAY ==
[2024-07-20 09:42] LABS: % Basophils 0.3 % (0-2); % Eosinophils 0.2 % (0-6); % Monocytes 5.4 % (1.7-9.3); % Neutrophils 82.1 % (42.2-75.2); Absolute Lymphocytes 0.7 10^3/uL (1.2-3.4); Absolute Monocytes 0.3 10^3/uL (0.1-0.6); Hematocrit 41.6 % (37.0-47.0); Hemoglobin 14.1 g/dL (12.0-16.0); Mean Corp Hgb Conc. 33.9 g/dL (33.0-37.0); Mean Corpuscular Hgb 33.2 pg (27.0-31.0); Mean Corpuscular Volume 97.9 fL (81.0-99.0); Mean Platelet Volume 9.5 fL (7.4-10.4); Nucleated Red Blood Cells % 0 %; Platelet Count 211 10^3/uL (130-400); Red Blood Cell Count 4.25 10^6/uL (4.20-5.40); Red Cell Dist. Width 12.7 % (11.5-14.5); White Blood Cell Count 6.1 10^3/uL (4.8-10.8)
[2024-07-20 11:37] LABS: ALT (SGPT) 19 U/L (0-35); AST (SGOT) 27 U/L (14-36); Albumin 4.7 g/dl (3.5-5.0); Alkaline Phosphatase 104 U/L (38-126); Blood Urea Nitrogen 15 mg/dl (7-17); Calcium 10.1 mg/dl (8.4-10.2); Carbon Dioxide 28 mmol/L (22-30); Chloride 101 mmol/L (98-107); Glucose 85 mg/dl (70-99); HDL Cholesterol 95 mg/dl; LDL Cholesterol, Calculated 123 mg/dl; Potassium 4.3 mmol/L (3.5-5.1); Sodium 143 mmol/L (135-145); Total Bilirubin 0.4 mg/dl (0.2-1.3); Total Cholesterol 226 mg/dl (50-199); Total Protein 7.1 g/dl (6.3-8.2); Triglyceride 44 mg/dl (10-149); Very Low Density Lipoprotein 8 mg/dl (0-30); eGFR > 60.00
[2024-07-20 12:08] LABS: TSH 1.31 uIU/ml (0.47-4.68)
[2024-07-20 12:44] LABS: Folate 10.8 ng/ml (2.76-20); Vitamin B12 591 pg/ml (239-931)
[2024-07-22 04:01] LABS: Homocysteine 12 umol/L (0-15)
== END ==
LOC: RCS 08:05
PROVIDERS: ATTENDING PHYSICIAN Family Medicine; OTHER PHYSICIAN Internal Medicine Cardiovascular Disease; OTHER PHYSICIAN Internal Medicine Hematology & Oncology; REFERRING PHYSICIAN Specialist
DX: I38 Endocarditis, valve unspecified (principal); Q61.02 Congenital multiple renal cysts; Z00.00 Encounter for general adult medical examination without abnormal findings; Z79.899 Other long term (current) drug therapy; E78.00 Pure hypercholesterolemia, unspecified; R53.83 Other fatigue; A69.20 Lyme disease, unspecified; I48.0 Paroxysmal atrial fibrillation
CPT/HCPCS: 36415; 76775; 80053; 80061; 82306; 82607; 82746; 83090; 84443; 85025; 93306

== ENCOUNTER 2024-08-15 11:25 | Emergency (ER) | payer OTHER, SELFPAY ==
[2024-08-15 11:26] VITALS: BP 175/87
--- NOTE | 2024-08-15 12:04 | ED.GENMED ---
History of Present Illness
General
Chief Complaint: Bowel Problem
Source: patient
Exam Limitations: none
Time Seen by Provider: 08/15/24 12:02
Nursing documentation reviewed up to this point in time: agreed with
History of Present Illness
History of Present Illness:
83 yo w h/o Afib on Eliquis, HLD, IBS, chronic constipation, hemorrhoids presents stating she has not had a BM in 3-4 days and has rectal pain to the point where she cannot sit. Also feels bloated.
Has chronic constipation and nightly takes Stool softener, 2 Mag Citrate pills and usually has daily BM.
She called her PCP and made appointment for tomorrow but PCP suggested she come here today.
She denies n/v. Denies abdominal pain.
Past History
Past History
ED Past Medical History: Arrthythmia (Atrial fib, followed by Dr. Centeno, had echo yesterday 'ok'), HTN, Hypercholesterolemia, Valvular disease, Psychiatric (Aniety) and Other (IBS< Hemorrhoids, )
ED Past Surgical History: Appendectomy, Gynecological (Tubal, Hysterectomy) and Other (Breast lumpectomy, Lung surgery, Upper eye lid surgery)
Social History
Tobacco: Non-smoker
Alcohol: Daily (Wine 1 glass)
Drug: None
Personal:
Living: alone
Employment: Retired
Family History
Family History: Other (Noncontributory)
Review of Systems
Review of Systems
Allergies reviewed?: Yes
All Other Systems: ROS reviewed and negative except as documented in HPI and ROS
Constitutional: Denies fever
Respiratory: Denies trouble breathing
Cardiac: Denies chest pain
ABD/GI: Reports abdominal pain and constipated; Denies nausea, vomiting, diarrhea, bloody stools, black stools or anorexia
: Reports frequency (chronic, followed by Urology Dr. Hong); Denies dysuria or difficulty voiding
Musculoskeletal: Reports no symptoms
Skin: Reports no symptoms
Neurological: Reports no symptoms
Phy Exam
Physical Exam
Physical Exam:
GENERAL: No acute distress. A&Ox3.
CONSTITUTIONAL: Afebrile.
RESPIRATORY: Regular respirations, nonlabored, lungs clear.
CARDIOVASCULAR: Regular rate and rhythm, no murmurs, no rubs.
GI: Soft, nontender, nondistended, normal BS
Rectal: Firm stool in rectum, no bleeding, no significant hemorrhoids
MUSCULOSKELETAL: Moves with ease. Well perfused.
SKIN: Warm, dry, pink
PSYCH: Normal mood and affect. Well kept, interactive and appropriate
NEUROLOGIC: Awake, alert and oriented. No focal neurological deficits
Course
Orders/Labs/Results
Orders:
Orders
08/15/24 12:21
Enema- Treatment ONCE
Type: Mineral Oil
08/15/24 12:30
Mineral Oil Enema [Fleet Mineral Oil Enema] 133 ml .ROUTE .STK-MED ONE
08/15/24 13:51
Lidocaine 2% [Lidocaine Uro-Jet 2%] 1 syringe .ROUTE .STK-MED ONE
08/15/24 15:14
CR Obstruct Series W/pa Chest Urgent
Comment:
Reason For Exam: no bm for 3-4 days, multiple enemas w no result
08/15/24 15:56
Magnesium Citrate [Citroma] 300 ml PO ONCE ONE
Vital Signs
Initial and Last Documented VS:
Initial Vital Signs
Temp Pulse Resp BP Pulse Ox
98.2 F 68 18 175/87 97
08/15/24 11:26 08/15/24 11:26 08/15/24 11:26 08/15/24 11:26 08/15/24 11:26
Last Documented Vital Signs
Temp Pulse Resp BP Pulse Ox
98.2 F 68 16 175/87 97
08/15/24 11:26 08/15/24 11:26 08/15/24 12:46 08/15/24 11:26 08/15/24 11:26
MDM/Problems Addressed
Differential Diagnosis Includes:
constipation, fecal impaction, bowel obstruction
MDM/Problems Addressed:
83 yo w h/o Afib on Eliquis, HLD, IBS, chronic constipation, hemorrhoids presents stating she has not had a BM in 3-4 days and has rectal pain to the point where she cannot sit. Also feels bloated.
Has chronic constipation and nightly takes Stool softener, 2 Mag Citrate pills and usually has daily BM.
She called her PCP and made appointment for tomorrow but PCP suggested she come here today.
She denies n/v. Denies abdominal pain.
Afebrile, NAD
Rectal: firm stool in vault, no active hemorrhoids, no significant pain with exam
3:15 pm
No BM after Fleets
No BM after this examiner gave 2 Soap suds enemas, 3 Milk and molasses enemas, stool is now soft and high in the rectal vault pt afraid to strain as she is afraid she will go into a fib.
Could not tolerate manual disimpaction.
Pt wants to go home, she has appt with her PCP tomorrow.
Sending for obstruction series
If no obstruction, will DC with bottle of Mag Citrate to take at home.
4:00 p.m.
Abdomen xray radiology report read: IMPRESSION:
No acute cardiopulmonary process.
Moderate volume widespread colonic stool without colonic distention. Nonobstructive bowel gas pattern. No free air.
Mag Citrate sent home w pt. She has appt. with PCP tomorrow
Pt very appreciative of the care
Ambulated out with normal gait at discharge
*Critical Care Note
Total Time (30-74mins, 75-104mins- exclusive of procedures): Not Applicable
ED Attending Note
-
Portions of this chart may have been created with voice recognition software.� Occasional wrong word or��sound alike� substitutions may have occurred due to the inherent limitations of voice recognition software.
Discharge Plan
Departure
Patient Disposition: Home (Routine Discharge)
Date of Disposition: 08/15/24
Time of Disposition: 15:56
Patient with high blood pressure during this ER visit?: Yes
Condition: Fair
Discharge Problem:
Acute constipation, Fecal impaction
Instructions: Constipation, Adult (DC), Fecal Impaction (DC)
Prescriptions:
No Action
ascorbic acid (vitamin C) [Vitamin C] 500 MG tablet
1,000 mg PO DAILY
cholecalciferol (vitamin D3) [Vitamin D3] 1,000 UNIT capsule
1,000 unit PO DAILY
diltiazem HCl [Cardizem LA] 240 MG tablet extended release 24 hr
240 mg PO BID
apixaban [Eliquis] 2.5 MG tablet
2.5 mg PO BID
L.acidoph, paracasei,B. lactis 1 EACH capsule
1 ea PO DAILY
gwx-rzyt-vcazc-pbap-aaq-jgk-in [Digestive Enzymes(mal,lac,inv)] 220 MG capsule
1 ea PO .DINNER
Gb Plus
1 tab PO DAILY
calcium carbonate 600 MG tablet
600 mg PO HS
mupirocin 22 GM ointment
22 gm TP TIDPRN PRN (Reason: sore lesions) Qty: 22 0RF
clindamycin HCl 300 MG capsule
300 mg PO TID Qty: 15 0RF
tramadol 25 mg tablet
25 mg PO Q6H PRN (Reason: Pain) Qty: 10 0RF
Referrals:
Amy Hunt, DO [Active] - Keep scheduled appt
UNKNOWN - PT DOES,NOT KNOW [Family Provider] -
Activity Restrictions/Additional Instructions:
As we discussed, take the entire bottle of Magnesium Citrate when you get home
At your appointment tomorrow, let your doctor know if you have moved your bowels.
Interventions
Interventions:
*Risk Screen - Suicide Last Done: 08/15/24 12:44
*General Assessment Last Done: 08/15/24 12:44
*Neglect/Abuse Screening Last Done: 08/15/24 12:44
ED- Fall Risk Assessment Last Done: 08/15/24 16:05
*ED COVID-19 Vaccine History Last Done: 08/15/24 12:44
*Nursing Disposition Last Done: 08/15/24 16:05
NS-Hummel-Pyiwotntyr Assessment Last Done: 08/15/24 12:44
Discharge Date and Time
Discharge Date/Time: 08/15/24 16:15
Print Language: LATVIAN
[2024-08-15] MEDS: CITROMA 300 ML PO (15:59)
== END 2024-08-15 16:15 | disposition home or self-care (01) ==
LOC: EMR 11:25
PROVIDERS: EMERGENCY PHYSICIAN Student in an Organized Health Care Education/Training Program
DX: K59.00 Constipation, unspecified (principal); I48.91 Unspecified atrial fibrillation; E78.00 Pure hypercholesterolemia, unspecified; K58.9 Irritable bowel syndrome, unspecified; K64.9 Unspecified hemorrhoids; I38 Endocarditis, valve unspecified
CPT/HCPCS: 99283; 74022

== ENCOUNTER → 2024-09-01 09:52 | Outpatient (REF) | payer OTHER, SELFPAY | LOC: WDC 09:52 | PROVIDERS: ATTENDING PHYSICIAN Advanced Practice Midwife; FAMILY PHYSICIAN Family Medicine | DX: N63.10 Unspecified lump in the right breast, unspecified quadrant (principal); N63.11 Unspecified lump in the right breast, upper outer quadrant | CPT/HCPCS: 76642; 77062; 77066 ==

== ENCOUNTER → 2024-09-07 11:04 | Outpatient (REF) | payer OTHER, SELFPAY ==
[2024-09-07 11:55] LABS: % Basophils 0.5 % (0-2); % Eosinophils 2.5 % (0-6); % Immature Granulocytes 0.5 % (0-0.5); % Monocytes 6.2 % (1.7-9.3); % Neutrophils 82.3 % (42.2-75.2); Absolute Eosinophils 0.2 10^3/uL (0-0.7); Absolute Lymphocytes 0.6 10^3/uL (1.2-3.4); Absolute Monocytes 0.5 10^3/uL (0.1-0.6); Hematocrit 39.3 % (37.0-47.0); Hemoglobin 13.4 g/dL (12.0-16.0); Mean Corp Hgb Conc. 34.1 g/dL (33.0-37.0); Mean Corpuscular Hgb 32.6 pg (27.0-31.0); Mean Corpuscular Volume 95.6 fL (81.0-99.0); Mean Platelet Volume 9.3 fL (7.4-10.4); Nucleated Red Blood Cells % 0 %; Platelet Count 201 10^3/uL (130-400); Red Blood Cell Count 4.11 10^6/uL (4.20-5.40); Red Cell Dist. Width 14.1 % (11.5-14.5); White Blood Cell Count 7.3 10^3/uL (4.8-10.8)
[2024-09-07 12:31] LABS: ALT (SGPT) 29 U/L (0-35); AST (SGOT) 28 U/L (14-36); Albumin 4.7 g/dl (3.5-5.0); Alkaline Phosphatase 107 U/L (38-126); Blood Urea Nitrogen 15 mg/dl (7-17); Calcium 9.7 mg/dl (8.4-10.2); Carbon Dioxide 25 mmol/L (22-30); Chloride 102 mmol/L (98-107); Glucose 96 mg/dl (70-99); Potassium 4.1 mmol/L (3.5-5.1); Sodium 141 mmol/L (135-145); Total Bilirubin 0.9 mg/dl (0.2-1.3); Total Protein 7.5 g/dl (6.3-8.2); eGFR > 60.00
[2024-09-07 12:46] LABS: Monotest Negative (Negative)
[2024-09-07 12:51] LABS: TSH 0.59 uIU/ml (0.47-4.68)
== END ==
LOC: REG 11:04
PROVIDERS: ATTENDING PHYSICIAN Family Medicine; OTHER PHYSICIAN Internal Medicine Cardiovascular Disease
DX: E78.00 Pure hypercholesterolemia, unspecified (principal); E78.2 Mixed hyperlipidemia; G47.00 Insomnia, unspecified; R53.82 Chronic fatigue, unspecified; I10 Essential (primary) hypertension; Z79.899 Other long term (current) drug therapy; Z13.29 Encounter for screening for other suspected endocrine disorder
CPT/HCPCS: 36415; 80053; 84443; 85025; 86308

== ENCOUNTER 2024-09-10 08:57 | Emergency (ER) | payer OTHER, SELFPAY ==
[2024-09-10 09:04] VITALS: BP 160/82
[2024-09-10 09:23] LABS: % Basophils 0.6 % (0-2); % Immature Granulocytes 0.5 % (0-0.5); % Lymphocytes 9.2 % (20.5-51.1); % Monocytes 7.4 % (1.7-9.3); % Neutrophils 76.3 % (42.2-75.2); Absolute Eosinophils 0.4 10^3/uL (0-0.7); Absolute Lymphocytes 0.6 10^3/uL (1.2-3.4); Absolute Monocytes 0.5 10^3/uL (0.1-0.6); Absolute Neutrophils 4.7 10^3/uL (1.4-6.5); Hematocrit 35.7 % (37.0-47.0); Hemoglobin 12.4 g/dL (12.0-16.0); Mean Corp Hgb Conc. 34.7 g/dL (33.0-37.0); Mean Corpuscular Hgb 32.4 pg (27.0-31.0); Mean Corpuscular Volume 93.2 fL (81.0-99.0); Mean Platelet Volume 8.9 fL (7.4-10.4); Nucleated Red Blood Cells % 0 %; Platelet Count 198 10^3/uL (130-400); Red Blood Cell Count 3.83 10^6/uL (4.20-5.40); Red Cell Dist. Width 14.3 % (11.5-14.5); White Blood Cell Count 6.2 10^3/uL (4.8-10.8)
[2024-09-10 09:56] LABS: ALT (SGPT) 34 U/L (0-35); AST (SGOT) 31 U/L (14-36); Albumin 4.1 g/dl (3.5-5.0); Alkaline Phosphatase 108 U/L (38-126); Blood Urea Nitrogen 11 mg/dl (7-17); Calcium 9.4 mg/dl (8.4-10.2); Carbon Dioxide 26 mmol/L (22-30); Chloride 105 mmol/L (98-107); Glucose 101 mg/dl (70-99); Sodium 144 mmol/L (135-145); Total Bilirubin 0.6 mg/dl (0.2-1.3); Total Protein 6.8 g/dl (6.3-8.2); eGFR > 60.00
[2024-09-10 10:35] VITALS: BP 175/164
--- NOTE | 2024-09-10 10:40 | ED.GENMED ---
History of Present Illness
General
Chief Complaint: Chest Problem
Source: patient
Exam Limitations: none
Time Seen by Provider: 09/10/24 10:17
Nursing documentation reviewed up to this point in time: agreed with
History of Present Illness
History of Present Illness:
83 yo female w h/o Afib on Eliquis, IBS, states she awakened at 1 a.m. with mid non radiating chest pain 'terrible pressure,' and 'hard to take a deep breath,' took temperature 100.0, took Tylenol, after about an hour she took a Gummy Bear to sleep
and fell asleep. Has had no CP, SOB since. She is asymptomatic at this time.
Past History
Past History
ED Past Medical History: Arrthythmia (Atrial fib, followed by Dr. Centeno, had echo yesterday 'ok'), HTN, Hypercholesterolemia, Valvular disease, Psychiatric (Aniety) and Other (IBS< Hemorrhoids, )
ED Past Surgical History: Appendectomy, Gynecological (Tubal, Hysterectomy) and Other (Breast lumpectomy, Lung surgery, Upper eye lid surgery)
Social History
Tobacco: Non-smoker
Alcohol: Daily (Wine 1 glass)
Drug: None
Personal:
Living: alone
Employment: Retired
Family History
Family History: Other (Noncontributory)
Review of Systems
Review of Systems
Allergies reviewed?: Yes
All Other Systems: ROS reviewed and negative except as documented in HPI and ROS
Constitutional: Denies fever or fatigue
Respiratory: Denies trouble breathing
Cardiac: Reports chest pain (Has resolved); Denies diaphoresis or palpitations
ABD/GI: Denies abdominal pain or nausea
: Denies dysuria, frequency or difficulty voiding
Musculoskeletal: Reports no symptoms
Skin: Reports other (small cut on right acosta from trip on steps yesterday)
Neurological: Reports no symptoms
Phy Exam
Physical Exam
Physical Exam:
GENERAL: No acute distress. A&Ox3.
CONSTITUTIONAL: Afebrile.
EYES: PERRL, conjunctivae normal
ENMT: moist mucus membranes, Pharynx nl
RESPIRATORY: Regular respirations, nonlabored, lungs clear.
CARDIOVASCULAR: Regular rate and rhythm, no murmurs, no rubs.
GI: Soft, nontender, normal BS
MUSCULOSKELETAL: Moves with ease. Well perfused.
SKIN: Warm, dry, pink, Small wound right acosta, bandaid changed, healing well. Small bruise right thigh
PSYCH: Normal mood and affect. Well kept, interactive and appropriate
NEUROLOGIC: Awake, alert and oriented. No focal neurological deficits
Course
Orders/Labs/Results
Orders:
Orders
09/10/24 09:08
Electrocardiogram (*1) Urgent
Reason for Study: Chest Pain
EKG- Treatment ONCE
09/10/24 09:16
Complete Blood Count/With Diff Urgent
Comprehensive Metabolic Panel Urgent
09/10/24 10:11
CXR2 [CR Chest - 2 Views ] Urgent
Comment:
Reason For Exam: congestion
09/10/24 10:14
COVID-19 Antigen Urgent
Source: Nasal Swab
Influenza A+B Rapid Molecular Urgent
KARLY Source: Nasal Swab
Specimen Description:
09/10/24 12:02
Troponin I Urgent
Abnormal Lab Results
09/10/24
09:16
RBC 3.83 L 10^6/uL
(4.20-5.40)
Hct 35.7 L %
(37.0-47.0)
MCH 32.4 H pg
(27.0-31.0)
Absolute Lymphs (auto) 0.6 L 10^3/uL
(1.2-3.4)
Neutrophils % 76.3 H %
(42.2-75.2)
Lymphocytes % 9.2 L %
(20.5-51.1)
Glucose 101 H mg/dl
(70-99)
09/10/24 09:16
09/10/24 09:16
Vital Signs
Initial and Last Documented VS:
Initial Vital Signs
Temp Pulse Resp BP Pulse Ox
97.4 F 75 16 160/82 98
09/10/24 09:04 09/10/24 09:04 09/10/24 09:04 09/10/24 09:04 09/10/24 09:04
Last Documented Vital Signs
Temp Pulse Resp BP Pulse Ox
97.4 F 75 19 179/83 96
09/10/24 09:04 09/10/24 10:36 09/10/24 10:36 09/10/24 12:49 09/10/24 10:36
MDM/Problems Addressed
MDM/Problems Addressed:
83 yo female w h/o Afib on EliInfolinks, [facility], states she awakened at 1 a.m. with mid non radiating chest pain 'terrible pressure,' and 'hard to take a deep breath,' took temperature 100.0, took Tylenol, after about an hour she took a Gummy Bear to sleep
and fell asleep. Has had no CP, SOB since. She is asymptomatic at this time.
Afebrile, NAD
EKG sinus rhythm with first-degree AV block, RBBB, left axis deviation similar to previous
CBC, CMP unremarkable
COVID test neg
Flu neg
12:30 Troponin normal
Pt reassured
Pt stable for discharge
*Critical Care Note
Total Time (30-74mins, 75-104mins- exclusive of procedures): Not Applicable
ED Attending Note
-
Portions of this chart may have been created with voice recognition software.� Occasional wrong word or��sound alike� substitutions may have occurred due to the inherent limitations of voice recognition software.
Discharge Plan
Departure
Patient Disposition: Home (Routine Discharge)
Date of Disposition: 09/10/24
Time of Disposition: 12:46
Patient with high blood pressure during this ER visit?: No
Condition: Good
Discharge Problem:
Atypical chest pain
Instructions: Chest Pain (DC), Acid reflux and GERD in adults
Prescriptions:
No Action
ascorbic acid (vitamin C) [Vitamin C] 500 MG tablet
1,000 mg PO DAILY
cholecalciferol (vitamin D3) [Vitamin D3] 1,000 UNIT capsule
1,000 unit PO DAILY
diltiazem HCl [Cardizem LA] 240 MG tablet extended release 24 hr
240 mg PO BID
apixaban [Eliquis] 2.5 MG tablet
2.5 mg PO BID
L.acidoph, paracasei,B. lactis 1 EACH capsule
1 ea PO DAILY
xyf-hlot-axchs-atlz-xoy-tmu-in [Digestive Enzymes(mal,lac,inv)] 220 MG capsule
1 ea PO .DINNER
Gb Plus
1 tab PO DAILY
calcium carbonate 600 MG tablet
600 mg PO HS
mupirocin 22 GM ointment
22 gm TP TIDPRN PRN (Reason: sore lesions) Qty: 22 0RF
clindamycin HCl 300 MG capsule
300 mg PO TID Qty: 15 0RF
tramadol 25 mg tablet
25 mg PO Q6H PRN (Reason: Pain) Qty: 10 0RF
Referrals:
Amy Hunt DO [Family Provider] - As needed
Activity Restrictions/Additional Instructions:
As we discussed, there is nothing worrisome in your workup here today.
You may try antacids such as Pepcid if your symptoms persists as you may be experiencing acid reflux
Interventions
Interventions:
*Risk Screen - Suicide Last Done: 09/10/24 09:04
*General Assessment Last Done: 09/10/24 09:04
*Neglect/Abuse Screening Last Done: 09/10/24 09:04
*ED COVID-19 Vaccine History Last Done: 09/10/24 12:13
*Nursing Disposition Last Done: 09/10/24 13:20
ED- Cardiac Assessment Last Done: 09/10/24 12:13
ED- Pulmonary Assessment Last Done: 09/10/24 12:13
Discharge Date and Time
Discharge Date/Time: 09/10/24 13:20
Print Language: MOZAMBICAN
[2024-09-10 10:50] LABS: COVID-19 Antigen Negative (Negative)
[2024-09-10 12:30] LABS: Troponin I < 0.012 ng/ml
[2024-09-10 12:49] VITALS: BP 179/83
== END 2024-09-10 13:20 | disposition home or self-care (01) ==
LOC: EMR 08:57
PROVIDERS: Emergency Medicine; Registered Nurse; EMERGENCY PHYSICIAN Student in an Organized Health Care Education/Training Program; FAMILY PHYSICIAN Family Medicine
DX: R07.89 Other chest pain (principal); I48.91 Unspecified atrial fibrillation; Z79.01 Long term (current) use of anticoagulants; Z11.52 Encounter for screening for COVID-19; K58.9 Irritable bowel syndrome, unspecified
CPT/HCPCS: 99285; 71046; 80053; 84484; 85025; 87502; 87811; 93005

== ENCOUNTER → 2024-09-13 14:01 | Outpatient (REF) | payer OTHER, SELFPAY | LOC: RAD 14:01 | PROVIDERS: ATTENDING PHYSICIAN Family Medicine | DX: R09.89 Other specified symptoms and signs involving the circulatory and respiratory systems (principal); R50.9 Fever, unspecified | CPT/HCPCS: 71260; Q9967 ==

== ENCOUNTER 2024-09-16 07:58 | Emergency (ER) | payer OTHER, SELFPAY ==
[2024-09-16 08:00] VITALS: BP 149/65; BMI 18.9
--- NOTE | 2024-09-16 08:20 | ED.GENMED ---
History of Present Illness
General
Chief Complaint: Headache
Source: patient
Exam Limitations: none
Time Seen by Provider: 09/16/24 08:05
History of Present Illness
History of Present Illness:
83-year-old female complaining of bifrontal headache for weeks. Usually relieved with Tylenol. No photophobia no focal neurologic symptoms no head injury. No thunderclap headache. No nausea or vomiting. She has left posterior neck pain that she
apparently has had for months if not longer. She is followed by orthopedics for this. She is told she has spinal stenosis.
Past History
Past History
ED Past Medical History: Arrthythmia (Atrial fib, followed by Dr. Centeno, had echo yesterday 'ok'), HTN, Hypercholesterolemia, Valvular disease, Psychiatric (Aniety) and Other (IBS< Hemorrhoids, )
ED Past Surgical History: Appendectomy, Gynecological (Tubal, Hysterectomy) and Other (Breast lumpectomy, Lung surgery, Upper eye lid surgery)
Social History
Tobacco: Non-smoker
Alcohol: Daily (Wine 1 glass)
Drug: None
Personal:
Living: alone
Employment: Retired
Family History
Family History: Other (Noncontributory)
Review of Systems
Review of Systems
Constitutional: Denies fever or chills
Neurological: Denies dizzy or weakness
Phy Exam
Physical Exam
Physical Exam:
GENERAL: Alert and oriented in no apparent distress
EYE: Orbits normal.
NECK: Supple, no carotid bruit
ENT: Pharynx without erythema no temporal tenderness.
CARDIAC: Regular rate and rhythm with mild midsystolic murmur.
LUNGS: Clear breath sounds,normal
ABDOMEN: Soft, without focal tenderness or distention
NEUROLOGICAL: Alert and oriented , cranial nerves II through XII intact. Speech normal. Grossly non-focal
SKIN: Warm and dry, no rash or lesion, no discoloration, skin intact.
MUSCULOSKELETAL: No edema,no deformity.Good color
PSYCH: Normal and appropriate interaction.
Course
Orders/Labs/Results
Orders:
Orders
09/16/24 08:00
Basic Metabolic Panel Urgent
Complete Blood Count/With Diff Urgent
Erythrocyte Sed Rate Urgent
09/16/24 08:19
CT Head W/o Iv Contrast Urgent
Comment:
Reason For Exam: Bifrontal headache/neck pain
CT Neck Angio W/wo Iv Contrast Urgent
Comment:
Reason For Exam: Bifrontal headache/neck pain
Cardiac Monitoring- Treatment ONCE
IV Insert/Care/Rem.- Treatment PRN
0.9% Sodium Chloride 500 ml [Nss] 500 ml IV BOLUS
09/16/24 12:05
Dexamethasone Sod Phosphate [Decadron] 4 mg IV NOW STA
09/16/24 12:08
Tramadol HCl [Ultram] 25 mg PO NOW STA
Abnormal Lab Results
09/16/24
08:00
RBC 3.60 L 10^6/uL
(4.20-5.40)
Hgb 11.9 L g/dL
(12.0-16.0)
Hct 33.3 L %
(37.0-47.0)
MCH 33.1 H pg
(27.0-31.0)
Abs Immat Gran (auto) 0.1 H 10^3/uL
(0-0.05)
Absolute Lymphs (auto) 0.5 L 10^3/uL
(1.2-3.4)
Immature Gran % 1.3 H %
(0-0.5)
Lymphocytes % 9.6 L %
(20.5-51.1)
Eosinophils % 10.1 H %
(0-6)
ESR 77 H mm/hour
(0-20)
Glucose 110 H mg/dl
(70-99)
09/16/24 08:00
09/16/24 08:00
Vital Signs
Initial and Last Documented VS:
Initial Vital Signs
Temp Pulse Resp BP Pulse Ox
99.4 F 85 16 149/65 94
09/16/24 08:00 09/16/24 08:00 09/16/24 08:00 09/16/24 08:00 09/16/24 08:00
Last Documented Vital Signs
Temp Pulse Resp BP Pulse Ox
98.3 F 80 23 149/77 94
09/16/24 10:20 09/16/24 11:30 09/16/24 11:30 09/16/24 11:00 09/16/24 10:30
MDM/Problems Addressed
MDM/Problems Addressed:
Patient with vague bifrontal headache for 1 weeks. Relieved with Tylenol. Nonfocal exam. No acute infectious symptoms. No thunderclap headache. With the posterior neck pain we will get a angiography of the neck. CT of the head to rule out
bleed. Very low suspicion for this. Check ESR for temporal arteritis. Patient did have a CT of her sinuses in July however she does not recall why she had this. Questioning whether she was having headaches even back then
*Radiology
Radiology exam reviewed: radiology read reviewed (Carotid plaque. 50 to 55%. 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 Small pleural effusion)
*Pulse Oximetry
Patient hypoxic: no
*[facility] [employer] [facility] Interpretation
Rate: normal
Interpretation: normal
*Critical Care Note
Total Time (30-74mins, 75-104mins- exclusive of procedures): Not Applicable
Data Reviewed
Review of Other/Old Records Reveals: Labs, Records, Radiology Studies and Testing
Update Note
Update Note:
Patient is remained very medically stable and nontoxic. Incidental small aneurysm do not feel this is the issue causing her headaches. Headaches have been ongoing for weeks. She is very nontoxic in appearance and in no distress. ESR is 77.
Temporal arteritis would be in the differential although slightly unlikely with the bifrontal headache. Discussed with her primary physician. Will put her on prednisone and follow-up closely this week. Patient is comfortable with this approach.
Will also have her follow-up with neurosurgery for her small aneurysm.
ED Attending Note
-
Portions of this chart may have been created with voice recognition software.� Occasional wrong word or��sound alike� substitutions may have occurred due to the inherent limitations of voice recognition software.
Discharge Plan
Departure
Patient Disposition: Home (Routine Discharge)
Date of Disposition: 09/16/24
Time of Disposition: 12:10
Patient with high blood pressure during this ER visit?: Yes
Discharge Problem:
Bifrontal headache, Elevated ESR, Incidental intracerebral aneurysm
Instructions: Headache, Adult (DC), BLOOD PRESSURE
Prescriptions:
New
prednisone 20 mg tablet
40 mg PO DAILY 7 Days Qty: 14 0RF
tramadol 25 mg tablet
25 mg PO Q6H PRN (Reason: Pain) Qty: 20 0RF
No Action
ascorbic acid (vitamin C) [Vitamin C] 500 MG tablet
1,000 mg PO DAILY
cholecalciferol (vitamin D3) [Vitamin D3] 1,000 UNIT capsule
1,000 unit PO DAILY
diltiazem HCl [Cardizem LA] 240 MG tablet extended release 24 hr
240 mg PO BID
apixaban [Eliquis] 2.5 MG tablet
2.5 mg PO BID
L.acidoph, paracasei,B. lactis 1 EACH capsule
1 ea PO DAILY
wor-swew-hgabb-aqpm-fau-gez-in [Digestive Enzymes(mal,lac,inv)] 220 MG capsule
1 ea PO .DINNER
Gb Plus
1 tab PO DAILY
calcium carbonate 600 MG tablet
600 mg PO HS
mupirocin 22 GM ointment
22 gm TP TIDPRN PRN (Reason: sore lesions) Qty: 22 0RF
clindamycin HCl 300 MG capsule
300 mg PO TID Qty: 15 0RF
tramadol 25 mg tablet
25 mg PO Q6H PRN (Reason: Pain) Qty: 10 0RF
Referrals:
Amy Hunt DO [Family Provider] -
Kiya Jules MD [Active] - Next open appointment
Activity Restrictions/Additional Instructions:
Call your primary physician Wednesday morning for close follow-up early this week
Start the oral prednisone tomorrow
Call the neurosurgeon for follow-up so they can follow this small aneurysm
Interventions
Interventions:
*Risk Screen - Suicide Last Done: 09/16/24 08:00
*General Assessment Last Done: 09/16/24 08:00
*Neglect/Abuse Screening Last Done: 09/16/24 08:00
ED- Fall Risk Assessment Last Done: 09/16/24 08:00
*ED COVID-19 Vaccine History Last Done: 09/16/24 08:00
ED- Neurological Assessment Last Done: 09/16/24 08:00
Discharge Date and Time
Print Language: AZERI
[2024-09-16] MEDS: NSS 500 IV (08:30)
[2024-09-16 08:32] LABS: % Basophils 0.7 % (0-2); % Eosinophils 10.1 % (0-6); % Immature Granulocytes 1.3 % (0-0.5); % Lymphocytes 9.6 % (20.5-51.1); % Monocytes 9.2 % (1.7-9.3); % Neutrophils 69.1 % (42.2-75.2); Absolute Eosinophils 0.6 10^3/uL (0-0.7); Absolute Immature Granulocytes 0.1 10^3/uL (0-0.05); Absolute Lymphocytes 0.5 10^3/uL (1.2-3.4); Absolute Monocytes 0.5 10^3/uL (0.1-0.6); Absolute Neutrophils 3.8 10^3/uL (1.4-6.5); Hematocrit 33.3 % (37.0-47.0); Hemoglobin 11.9 g/dL (12.0-16.0); Mean Corp Hgb Conc. 35.7 g/dL (33.0-37.0); Mean Corpuscular Hgb 33.1 pg (27.0-31.0); Mean Corpuscular Volume 92.5 fL (81.0-99.0); Mean Platelet Volume 8.7 fL (7.4-10.4); Nucleated Red Blood Cells % 0 %; Platelet Count 309 10^3/uL (130-400); Red Cell Dist. Width 14.5 % (11.5-14.5); White Blood Cell Count 5.5 10^3/uL (4.8-10.8)
[2024-09-16 08:41] LABS: Blood Urea Nitrogen 12 mg/dl (7-17); Calcium 9.5 mg/dl (8.4-10.2); Carbon Dioxide 26 mmol/L (22-30); Chloride 102 mmol/L (98-107); Estimated Creatinine Clearance 52 ml/min; Glucose 110 mg/dl (70-99); Potassium 4.2 mmol/L (3.5-5.1); Sodium 139 mmol/L (135-145); eGFR > 60.00
[2024-09-16 09:06] LABS: Erythrocyte Sed Rate 77 mm/hour (0-20)
[2024-09-16 09:19] VITALS: BP 159/68
[2024-09-16 10:02] VITALS: BP 158/71
[2024-09-16 11:00] VITALS: BP 149/77
[2024-09-16 12:00] VITALS: BP 163/66
[2024-09-16] MEDS: DECADRON 4 MG IV (12:22)
[2024-09-16] MEDS: ULTRAM 25 MG PO (12:22)
== END 2024-09-16 12:53 | disposition home or self-care (01) ==
LOC: EMR 07:58
PROVIDERS: EMERGENCY PHYSICIAN Emergency Medicine; FAMILY PHYSICIAN Family Medicine
DX: R51.9 Headache, unspecified (principal); M54.2 Cervicalgia; I67.1 Cerebral aneurysm, nonruptured; R70.0 Elevated erythrocyte sedimentation rate; J90 Pleural effusion, not elsewhere classified; I66.01 Occlusion and stenosis of right middle cerebral artery; R01.1 Cardiac murmur, unspecified; I65.29 Occlusion and stenosis of unspecified carotid artery; I48.91 Unspecified atrial fibrillation; I10 Essential (primary) hypertension; E78.00 Pure hypercholesterolemia, unspecified; K58.9 Irritable bowel syndrome, unspecified; F41.9 Anxiety disorder, unspecified; M48.00 Spinal stenosis, site unspecified; Z79.01 Long term (current) use of anticoagulants; Z88.2 Allergy status to sulfonamides; Z88.8 Allergy status to other drugs, medicaments and biological substances; Z88.1 Allergy status to other antibiotic agents; Z91.013 Allergy to seafood
CPT/HCPCS: 99285; 96361 ×2; 96374; 70450; 70498; 80048; 85025; 85652; Q9967

== ENCOUNTER → 2024-09-20 13:27 | Outpatient (REF) | payer OTHER, SELFPAY | LOC: WDC 13:27 | PROVIDERS: ATTENDING PHYSICIAN Family Medicine | DX: R92.8 Other abnormal and inconclusive findings on diagnostic imaging of breast (principal); R59.9 Enlarged lymph nodes, unspecified | CPT/HCPCS: 76642 ==

== ENCOUNTER → 2024-09-26 11:58 | Outpatient (REF) | payer OTHER, SELFPAY ==
[2024-09-26 12:29] LABS: Urine Albumin Negative (Neg - Trace); Urine Bilirubin Negative (Negative); Urine Character Clear (Clear); Urine Color Yellow; Urine Glucose Negative (Negative); Urine Ketone Negative (Negative); Urine Leukocyte Negative (Negative); Urine Nitrite Negative (Negative); Urine Occult Blood Negative (Negative); Urine Specific Gravity 1.015 (<1.030); Urine Urobilinogen Negative (Neg - 1+)
== END ==
LOC: REG 11:58
PROVIDERS: ATTENDING PHYSICIAN Family Medicine
DX: R35.0 Frequency of micturition (principal)
CPT/HCPCS: 81003; 87086

== ENCOUNTER → 2024-10-19 11:52 | Outpatient (REF) | payer OTHER, SELFPAY ==
[2024-10-19 14:37] LABS: % Basophils 0.1 % (0-2); % Immature Granulocytes 0.3 % (0-0.5); % Lymphocytes 2.8 % (20.5-51.1); % Monocytes 3.1 % (1.7-9.3); % Neutrophils 93.7 % (42.2-75.2); Absolute Lymphocytes 0.3 10^3/uL (1.2-3.4); Absolute Monocytes 0.3 10^3/uL (0.1-0.6); Absolute Neutrophils 9.9 10^3/uL (1.4-6.5); Hematocrit 40.1 % (37.0-47.0); Hemoglobin 13.2 g/dL (12.0-16.0); Mean Corp Hgb Conc. 32.9 g/dL (33.0-37.0); Mean Corpuscular Hgb 33.1 pg (27.0-31.0); Mean Corpuscular Volume 100.5 fL (81.0-99.0); Mean Platelet Volume 9.2 fL (7.4-10.4); Nucleated Red Blood Cells % 0 %; Platelet Count 402 10^3/uL (130-400); Red Blood Cell Count 3.99 10^6/uL (4.20-5.40); Red Cell Dist. Width 14.1 % (11.5-14.5); White Blood Cell Count 10.6 10^3/uL (4.8-10.8)
[2024-10-19 15:06] LABS: Erythrocyte Sed Rate 27 mm/hour (0-20)
[2024-10-22 01:36] LABS: ANA, IgG Reflex to HEp-2 None Detected (None Detected)
== END ==
LOC: RAD 11:52
PROVIDERS: ATTENDING PHYSICIAN Family Medicine; REFERRING PHYSICIAN General Practice
DX: R22.0 Localized swelling, mass and lump, head (principal); J01.90 Acute sinusitis, unspecified; Z79.899 Other long term (current) drug therapy
CPT/HCPCS: 36415; 70486; 85025; 85652; 86038

== ENCOUNTER → 2024-11-14 12:01 | Outpatient (REF) | payer OTHER, SELFPAY ==
[2024-11-16 05:08] LABS: Complement C3 145 mg/dl (88-165)
[2024-11-16 21:39] LABS: Blue Mussel <0.10 kU/L (<=0.34); Clam <0.10 kU/L (<=0.34); Codfish <0.10 kU/L (<=0.34); Crab <0.10 kU/L (<=0.34); IgE 120 kU/L (<=214); Lobster <0.10 kU/L (<=0.34); Oyster <0.10 kU/L (<=0.34); Scallop <0.10 kU/L (<=0.34); Shrimp <0.10 kU/L (<=0.34); Tuna <0.10 kU/L (<=0.34)
== END ==
LOC: REG 12:01
PROVIDERS: ATTENDING PHYSICIAN Internal Medicine; FAMILY PHYSICIAN Family Medicine
DX: T78.3XXA Angioneurotic edema, initial encounter (principal); Z91.011 Allergy to milk products; Z91.018 Allergy to other foods
CPT/HCPCS: 36415; 82785; 86003; 86160; 86161

== ENCOUNTER 2024-11-16 06:58 | Emergency (ER) | payer OTHER, SELFPAY ==
[2024-11-16 07:00] VITALS: BP 145/57
[2024-11-16 07:03] VITALS: BP 145/57
[2024-11-16 07:05] VITALS: BMI 22.2
[2024-11-16 07:19] LABS: % Basophils 0.6 % (0-2); % Eosinophils 3.2 % (0-6); % Immature Granulocytes 0.4 % (0-0.5); % Lymphocytes 18.8 % (20.5-51.1); % Monocytes 8.5 % (1.7-9.3); % Neutrophils 68.5 % (42.2-75.2); Absolute Eosinophils 0.2 10^3/uL (0-0.7); Absolute Lymphocytes 0.9 10^3/uL (1.2-3.4); Absolute Monocytes 0.4 10^3/uL (0.1-0.6); Absolute Neutrophils 3.4 10^3/uL (1.4-6.5); Hematocrit 38.1 % (37.0-47.0); Hemoglobin 12.9 g/dL (12.0-16.0); Mean Corp Hgb Conc. 33.9 g/dL (33.0-37.0); Mean Corpuscular Hgb 33.8 pg (27.0-31.0); Mean Corpuscular Volume 99.7 fL (81.0-99.0); Mean Platelet Volume 8.6 fL (7.4-10.4); Nucleated Red Blood Cells % 0 %; Platelet Count 277 10^3/uL (130-400); Red Blood Cell Count 3.82 10^6/uL (4.20-5.40); Red Cell Dist. Width 13.2 % (11.5-14.5); White Blood Cell Count 4.9 10^3/uL (4.8-10.8)
[2024-11-16 07:31] LABS: ALT (SGPT) 21 U/L (0-35); AST (SGOT) 25 U/L (14-36); Albumin 3.9 g/dl (3.5-5.0); Alkaline Phosphatase 96 U/L (38-126); Blood Urea Nitrogen 9 mg/dl (7-17); Calcium 9.2 mg/dl (8.4-10.2); Carbon Dioxide 29 mmol/L (22-30); Chloride 104 mmol/L (98-107); Estimated Creatinine Clearance 47 ml/min; Glucose 90 mg/dl (70-99); Sodium 138 mmol/L (135-145); Total Bilirubin 0.3 mg/dl (0.2-1.3); Total Protein 6.2 g/dl (6.3-8.2); eGFR > 60.00
[2024-11-16 07:43] LABS: NT-proBNP 216 pg/ml; Troponin I < 0.012 ng/ml
[2024-11-16 08:00] VITALS: BP 119/54
--- NOTE | 2024-11-16 08:18 | ED.GENMED ---
History of Present Illness
General
Chief Complaint: Breathing Problem
Source: patient
Time Seen by Provider: 11/16/24 08:00
History of Present Illness
History of Present Illness:
This patient is an 83-year-old female who presents emergency department with complaints of 'tightness in my chest' that she first noticed yesterday morning. She says specifically it seems to be worse when she takes a deep breath but she is not
short of her breathless. She checked her pulse ox and heart rate yesterday and it was normal. She denies associated dyspnea, fever, chills, nausea, vomiting, cough, sore throat, rhinorrhea, congestion, recent immobilization, recent trauma, leg
swelling. Patient is anticoagulated given her history of A-fib. She denies associated diaphoresis, back pain, jaw pain, headache. She took a Xanax and felt better but noted the discomfort again last night. She took a Xanax and went to bed. When
she woke this morning she again noted the tightness across her chest. This is without exacerbating relieving factors with the exception of a deep breath. It is without radiation.
Past History
Past History
ED Past Medical History: Arrthythmia (Atrial fib, followed by Dr. Centeno, had echo yesterday 'ok'), HTN, Hypercholesterolemia, Valvular disease, Psychiatric (Aniety) and Other (IBS,Hemorrhoids)
ED Past Surgical History: Appendectomy, Gynecological (Tubal, Hysterectomy) and Other (Breast lumpectomy, Lung surgery, Upper eye lid surgery)
Social History
Tobacco: Non-smoker
Alcohol: Daily (Wine 1 glass)
Drug: None
Personal:
Living: alone
Employment: Retired
Family History
Family History: Other (Noncontributory)
Phy Exam
Physical Exam
Physical Exam:
GENERAL: Alert , in no apparent distress, nontoxic, well-appearing, conversational without difficulty
EYE: pupils equal and reactive
NECK: Supple, no significant adenopathy.
ENT: o/p clr, mmm.
CARDIAC: Regular rate and rhythm .
LUNGS: Clear breath sounds bilaterally, no acute respiratory distress, no wheezes/rales/rhonchi
ABDOMEN: Soft, without focal tenderness, no r/g, no cvat
NEUROLOGICAL: Alert and oriented, no focal neuro deficits
SKIN: Warm and dry, skin intact.
MUSCULOSKELETAL: No edema, well perfused.
PSYCH: Normal and appropriate interaction.
Scores
Heart Failure Risk
Heart Failure Risk Score: Not Applicable
Course
Orders/Labs/Results
Orders:
Orders
11/16/24 07:03
Electrocardiogram (*1) Urgent
Reason for Study: Shortness of Breath
CR Chest - 2 Views Urgent
Comment:
Reason For Exam: sob
11/16/24 07:04
EKG- Treatment ONCE
11/16/24 07:11
BNP [NT-proBNP] Urgent
Complete Blood Count/With Diff Urgent
Comprehensive Metabolic Panel Urgent
Troponin I Urgent
11/16/24 08:52
D-Dimer Urgent
11/16/24 10:21
Troponin I Urgent
Abnormal Lab Results
11/16/24
07:11
RBC 3.82 L 10^6/uL
(4.20-5.40)
MCV 99.7 H fL
(81.0-99.0)
MCH 33.8 H pg
(27.0-31.0)
Absolute Lymphs (auto) 0.9 L 10^3/uL
(1.2-3.4)
Lymphocytes % 18.8 L %
(20.5-51.1)
Total Protein 6.2 L g/dl
(6.3-8.2)
11/16/24 07:11
11/16/24 07:11
Vital Signs
Initial and Last Documented VS:
Initial Vital Signs
Temp Pulse Resp BP Pulse Ox
98.8 F 58 18 145/57 100
11/16/24 07:00 11/16/24 07:00 11/16/24 07:00 11/16/24 07:00 11/16/24 07:00
Last Documented Vital Signs
Temp Pulse Resp BP Pulse Ox
98.8 F 67 21 145/59 98
11/16/24 07:00 11/16/24 11:30 11/16/24 11:30 11/16/24 11:00 11/16/24 11:15
*Critical Care Note
Total Time (30-74mins, 75-104mins- exclusive of procedures): Not Applicable
Update Note
Update Note:
Patient presents to the Emergency Department with chest pain
Number and Complexity of Problems Addressed at the Encounter
� Chronic conditions affecting care:
� Acute Exacerbation and/or Progression of Chronic Illness:
� Differential Diagnosis includes: But not limited to ACS, A-fib, pleurisy, PE, pneumonia, etc. etc.
Amount and/or Complexity of Data to be Reviewed and Analyzed
� I performed an independent evaluation of and my interpretation is:
EKG: Reviewed by me, sinus bradycardia with first-degree block, right bundle branch block, no acute ischemia
CT:
Xrays: Reviewed by me, NAD rads read Unchanged volume loss left hemithorax likely related to previous surgery.
2. Very small left pleural effusion and adjacent atelectasis, improved as compared with prior.
3. Chronic partial atelectasis/scarring of the medial segment of the right middle lobe with associated bronchiectatic changes.
Laboratory Studies: Reviewed by me, no acute abnormalities, COVID-negative
Other:
� Review of other/old records reveals:
� Clinical information was obtained by an independent historian:
� Prescriptions/Medications Considered but not given:
� Further testing considered but not performed:
Risk of Complications and/or Morbidity or Mortality of Patient Management
� Social determinants of health affecting care:
� Discussion with other providers (PCP, Hospitalists, Consultants, etc):
� Escalation of care including admission/observation vs risk of discharge considered: 10:27 AM repeat assessment patient remains comfortable, pleasant, states that her symptoms are much better. She did take a Xanax before
arrival here and wonders if that helps her. Workup unremarkable thus far. If repeat troponin within normal limits patient will be discharged with instructions for close follow-up.
ED Attending Note
-
Portions of this chart may have been created with voice recognition software.� Occasional wrong word or��sound alike� substitutions may have occurred due to the inherent limitations of voice recognition software.
Discharge Plan
Departure
Patient Disposition: Home (Routine Discharge)
Date of Disposition: 11/16/24
Time of Disposition: 11:17
Patient with high blood pressure during this ER visit?: Yes
Condition: Good
Discharge Problem:
Chest pain
Instructions: Chest Pain (DC), BLOOD PRESSURE
Prescriptions:
No Action
ascorbic acid (vitamin C) [Vitamin C] 500 MG tablet
1,000 mg PO DAILY
cholecalciferol (vitamin D3) [Vitamin D3] 1,000 UNIT capsule
1,000 unit PO DAILY
diltiazem HCl [Cardizem LA] 240 MG tablet extended release 24 hr
240 mg PO BID
apixaban [Eliquis] 2.5 MG tablet
2.5 mg PO BID
L.acidoph,paracasei,B.animalis 1 EACH capsule
1 ea PO DAILY
cch-hwlb-ocikx-ibex-jgl-zqn-in [Digestive Enzymes(mal,lac,inv)] 220 MG capsule
1 ea PO .DINNER
Gb Plus
1 tab PO DAILY
calcium carbonate 600 MG tablet
600 mg PO HS
mupirocin 22 GM ointment
22 gm TP TIDPRN PRN (Reason: sore lesions) Qty: 22 0RF
clindamycin HCl 300 MG capsule
300 mg PO TID Qty: 15 0RF
tramadol 25 mg tablet
25 mg PO Q6H PRN (Reason: Pain) Qty: 10 0RF
prednisone 20 mg tablet
40 mg PO DAILY 7 Days Qty: 14 0RF
tramadol 25 mg tablet
25 mg PO Q6H PRN (Reason: Pain) Qty: 20 0RF
tramadol 50 mg tablet
50 mg PO Q8H PRN (Reason: Pain) Qty: 14 0RF
Referrals:
Amy Hunt DO [Family Provider] - Next open appointment
Activity Restrictions/Additional Instructions:
IF YOU DEVELOP INCREASING OR NEW PAIN, FEVER, TROUBLE BREATHING, DIZZINESS, OR OTHER WORRISOME SIGNS, PLEASE RETURN TO THE ER IMMEDIATELY.
Interventions
Interventions:
*Risk Screen - Suicide Last Done: 11/16/24 07:00
*General Assessment Last Done: 11/16/24 07:00
*Neglect/Abuse Screening Last Done: 11/16/24 07:00
ED- Fall Risk Assessment Last Done: 11/16/24 07:00
*ED COVID-19 Vaccine History Last Done: 11/16/24 07:00
*Nursing Disposition Last Done: 11/16/24 11:47
ED- Cardiac Assessment Last Done: 11/16/24 07:00
ED- Pulmonary Assessment Last Done: 11/16/24 07:00
Discharge Date and Time
Discharge Date/Time: 11/16/24 11:47
Print Language: DIVEHI
[2024-11-16 09:53] LABS: D-Dimer < 0.27 ug/mlFEU (0.00-0.50)
[2024-11-16 10:21] VITALS: BP 151/65
[2024-11-16 11:00] VITALS: BP 145/59
[2024-11-16 11:05] LABS: Troponin I < 0.012 ng/ml
== END 2024-11-16 11:47 | disposition home or self-care (01) ==
LOC: EMR 06:58
PROVIDERS: Emergency Medicine; EMERGENCY PHYSICIAN Emergency Medicine; FAMILY PHYSICIAN Family Medicine
DX: R07.89 Other chest pain (principal); E78.00 Pure hypercholesterolemia, unspecified; I10 Essential (primary) hypertension; I48.91 Unspecified atrial fibrillation; K58.9 Irritable bowel syndrome, unspecified; Z87.19 Personal history of other diseases of the digestive system; Z90.49 Acquired absence of other specified parts of digestive tract; Z90.710 Acquired absence of both cervix and uterus
CPT/HCPCS: 99283; 71046; 80053; 83880; 84484; 85025; 85379; 93005

== ENCOUNTER → 2024-11-29 13:19 | Outpatient (REF) | payer OTHER, SELFPAY | LOC: WDC 13:19 | PROVIDERS: ATTENDING PHYSICIAN Family Medicine | DX: R59.1 Generalized enlarged lymph nodes (principal); R22.32 Localized swelling, mass and lump, left upper limb | CPT/HCPCS: 76642 ==

== ENCOUNTER → 2024-12-20 11:29 | Outpatient (REF) | payer OTHER, SELFPAY | LOC: WDC 11:29 | PROVIDERS: ATTENDING PHYSICIAN Family Medicine | DX: N63.32 Unspecified lump in axillary tail of the left breast (principal) | CPT/HCPCS: 88305; 88312; 19083 ==

== ENCOUNTER → 2025-01-06 09:14 | Outpatient (REF) | payer OTHER, SELFPAY ==
[2025-01-08 18:00] LABS: Number Of Markers 26 markers; Source Blood
== END ==
LOC: REG 09:14
PROVIDERS: ATTENDING PHYSICIAN Internal Medicine Hematology & Oncology; FAMILY PHYSICIAN Family Medicine; REFERRING PHYSICIAN Internal Medicine
DX: R23.3 Spontaneous ecchymoses (principal); R79.9 Abnormal finding of blood chemistry, unspecified; D50.9 Iron deficiency anemia, unspecified; D52.8 Other folate deficiency anemias; D68.00 Von Willebrand disease, unspecified; D51.9 Vitamin B12 deficiency anemia, unspecified
CPT/HCPCS: 36415

== ENCOUNTER 2025-02-02 06:03 | Day surgery (SDC) | payer OTHER, SELFPAY ==
[2025-01-23 11:09] LABS: Hematocrit 36.9 % (37.0-47.0); Hemoglobin 11.8 g/dL (12.0-16.0); Mean Corpuscular Hgb 31.5 pg (27.0-31.0); Mean Corpuscular Volume 98.4 fL (81.0-99.0); Platelet Count 269 10^3/uL (130-400); Red Blood Cell Count 3.75 10^6/uL (4.20-5.40); Red Cell Dist. Width 13.9 % (11.5-14.5); White Blood Cell Count 6.6 10^3/uL (4.8-10.8)
[2025-01-23 11:36] LABS: Prealbumin (Transthyretin) 34.7 mg/dl (17.6-36.0)
[2025-01-23 11:47] LABS: Vitamin D, 25-OH*** 48.8 ng/mL (30-80)
[2025-01-23 11:55] LABS: ALT (SGPT) 26 U/L (0-35); AST (SGOT) 20 U/L (14-36); Albumin 4.7 g/dl (3.5-5.0); Alkaline Phosphatase 125 U/L (38-126); Blood Urea Nitrogen 19 mg/dl (7-17); Calcium 9.7 mg/dl (8.4-10.2); Carbon Dioxide 27 mmol/L (22-30); Chloride 103 mmol/L (98-107); Glucose 95 mg/dl (70-99); Potassium 4.1 mmol/L (3.5-5.1); Sodium 138 mmol/L (135-145); Total Bilirubin 0.8 mg/dl (0.2-1.3); Total Protein 7.1 g/dl (6.3-8.2); eGFR > 60.00
[2025-01-23 14:24] VITALS: BMI 19.5
[2025-02-02 06:53] VITALS: BP 174/75; BMI 19.5
[2025-02-02] MEDS: NORMOSOL-R/PLASMALYTE-A 1000 IV (07:03)
[2025-02-02] MEDS: TYLENOL 1000 MG PO (07:03)
[2025-02-02 09:36] VITALS: BP 148/65
[2025-02-02 09:45] VITALS: BP 170/73
[2025-02-02 09:51] VITALS: BP 148/86
--- NOTE | 2025-02-02 09:58 | OR.RPT ---
Operative Report
Operative Report
Date of Surgery: 02/02/25
Pre-Op DX: Left axillary adenopathy
Post-Op DX: Left axillary adenopathy
Procedure: Excisional biopsy left axillary mass
Surgeon: Jose Antonio
The patient is an 84-year-old female referred by medical oncology for re-excision of the left axillary mass. They were concerned about possible low-grade lymphoma and an external core biopsy have been performed but was nondiagnostic. The patient
presented to the same-day surgical unit where she prepped and received DVT and antibiotic prophylaxis. She verified site and procedure and was taken to the operating room.
In the supine position intravenous sedation was delivered and the left axilla and chest wall were prepped and draped in usual sterile fashion. Tissues were anesthetized with 1% lidocaine plain. A curvilinear incision inferior to the hairline was
made sharply after an appropriate timeout was performed by all staff. Dissection was carried through clavipectoral fascia using the cautery. The mass was carefully dissected from surrounding fatty tissue by clamping and tying with 3-0 silk. This
did extend to level to and to protect the axillary vein the harmonic scalpel was used to dissect the most superior pole. Specimen was sent to pathology for immediate processing.
Hemostasis was carefully verified. Marcaine 0.5% was instilled into all tissue. Hemoclips outlined the resection bed and a small portion of Surgicel was placed. Wound was closed using simple interrupted 3-0 plain on deep intermediate and
subcutaneous tissue and skin was closed with a running subcuticular 4 Monocryl. Sterile dressing was applied all sponge needle and instrument counts were correct and the patient was transferred to the recovery room in stable condition
([id number])
[2025-02-02 10:01] VITALS: BP 177/85
--- NOTE | 2025-02-02 10:03 | W.IMMPOSTOP ---
Surgical Immed Post Op Note
-
Primary Surgeon: Jose Antonio
Assisting Surgeon: None
Pre-op Diagnosis: Left axillary mass
Post-op Diagnosis: Left axillary mass
Procedure Performed: Excisional biopsy left axillary mass
Anesthesia Type: TIVA
Specimen / Cultures: Left axillary mass
Estimated Blood Loss: 10cc
Complications: None
Operative Findings: None
[2025-02-02 10:15] VITALS: BP 171/127
== END 2025-02-02 10:50 | disposition home or self-care (01) ==
LOC: SDS 06:03
PROVIDERS: ATTENDING PHYSICIAN Surgery; FAMILY PHYSICIAN Family Medicine
DX: C83.34 Diffuse large B-cell lymphoma, lymph nodes of axilla and upper limb (principal); R59.0 Localized enlarged lymph nodes
CPT/HCPCS: 38525; 88307; 36415; 80053; 82306; 84134; 85027; 88184; 88185; 88341

== ENCOUNTER 2025-02-23 08:03 | Emergency (ER) | payer OTHER, SELFPAY ==
[2025-02-23 08:08] VITALS: BP 174/79
[2025-02-23] MEDS: VIBRAMYCIN 100 MG PO (08:38)
--- NOTE | 2025-02-23 08:39 | ED.GENMED ---
History of Present Illness
General
Chief Complaint: Skin Problem
Source: patient
Exam Limitations: none
Time Seen by Provider: 02/23/25 08:17
Nursing documentation reviewed up to this point in time: agreed with
History of Present Illness
History of Present Illness:
84-year-old female with history as noted presents to the ER for evaluation of left hand wound infection. Patient reports that 5 days ago she accidentally struck her hand on a countertop. She sustained a skin tear/bruise there that opened up and
now has small wound on the dorsum of the hand. On Wednesday she started to notice some scant drainage and redness around the wound and went to urgent care. She was treated with local wound care and was started on cephalexin 500 mg 3 times daily,
first dose Wednesday evening. Has been on antibiotics for 48 hours with little to no improvement which prompted her to come to the ER for reassessment. She has not had fevers or chills. She denies any other complaints.
Past History
Past History
ED Past Medical History: Arrthythmia (Atrial fib, followed by Dr. Centeno, had echo yesterday 'ok'), HTN, Hypercholesterolemia, Valvular disease, Psychiatric (Aniety) and Other (IBS,Hemorrhoids)
ED Past Surgical History: Appendectomy, Gynecological (Tubal, Hysterectomy) and Other (Breast lumpectomy, Lung surgery, Upper eye lid surgery)
Social History
Tobacco: Non-smoker
Alcohol: Daily (Wine 1 glass)
Drug: None
Personal:
Living: alone
Employment: Retired
Family History
Family History: Other (Noncontributory)
Review of Systems
Review of Systems
All Other Systems: ROS reviewed and negative except as documented in HPI and ROS
Constitutional: Denies fever or chills
Skin: Reports other (Wound infection)
Phy Exam
Physical Exam
Physical Exam:
General: Well appearing and non-toxic
HEENT: protecting airway
Neck: appears supple
CV: No evidence of cyanosis
Resp: No accessory muscle use
Abd: Non-distended
Extremities: No deformities
Neuro: Alert
Psych: Normal affect
Skin: Patient has wound on the dorsum of the left hand approximately 3 cm diameter; smaller punctate wound dorsal aspect of the hypothenar eminence and large bruise over the dorsal aspect of the thumb; there is some faint erythema and warmth and
mild tenderness around this area; no purulent drainage noted there are small pieces of Gelfoam dressing still in place on the wound; no induration, no streaking redness; see picture below
Scores
Heart Failure Risk
Heart Failure Risk Score: Not Applicable
Heart Score for Chest Pain Patients
STEMI patient?: Not applicable
Withdrawal Assessment of Alcohol
Withdrawal Assessment Completed?: Not applicable
Course
Orders/Labs/Results
Orders:
Orders
02/23/25 08:27
Doxycycline [Vibramycin] 100 mg PO NOW STA
Vital Signs
Initial and Last Documented VS:
Initial Vital Signs
Temp Pulse Resp BP Pulse Ox
36.6 C 69 18 174/79 98
02/23/25 08:08 02/23/25 08:08 02/23/25 08:08 02/23/25 08:08 02/23/25 08:08
Last Documented Vital Signs
Temp Pulse Resp BP Pulse Ox
36.6 C 69 18 174/79 98
02/23/25 08:08 02/23/25 08:08 02/23/25 08:08 02/23/25 08:08 02/23/25 08:08
MDM/Problems Addressed
Differential Diagnosis Includes:
Cellulitis, bruising/trauma
MDM/Problems Addressed:
84-year-old female presents with redness around skin tear on the dorsum of her left hand; has been on Keflex for 48 hours but has not noticed significant improvement and so came to the ER. Vitals and exam as above. Suspect she has a mild
cellulitis; at this point after only 48 hours of antibiotics and without any signs of systemic symptoms, no signs of deeper infection/tenosynovitis�I think it would be reasonable to broaden antibiotic coverage with doxycycline for MRSA coverage,
continue cephalexin and trial additional oral antibiotics as an outpatient. Patient feels very comfortable with this plan. We did speak about strict return precautions including worsening of symptoms or failure improvement after a few more days of
antibiotics. She indicated understanding. Area cleaned and dressed here. All questions answered.
*Pulse Oximetry
Patient hypoxic: no
*Critical Care Note
Total Time (30-74mins, 75-104mins- exclusive of procedures): Not Applicable
Data Reviewed
Source: patient
ED Attending Note
-
Portions of this chart may have been created with voice recognition software.� Occasional wrong word or��sound alike� substitutions may have occurred due to the inherent limitations of voice recognition software.
Discharge Plan
Departure
Patient Disposition: Home (Routine Discharge)
Date of Disposition: 02/23/25
Time of Disposition: 08:32
Patient with high blood pressure during this ER visit?: Yes
Discharge Problem:
Skin tear, Cellulitis, Hypertension
Instructions: Wound Care (DC), Cellulitis (Skin Infection), Adult (DC), BLOOD PRESSURE
Prescriptions:
New
doxycycline hyclate 100 mg capsule
100 mg PO BID Qty: 20 0RF
No Action
cholecalciferol (vitamin D3) [Vitamin D3] 1,000 UNIT capsule
1,000 unit PO DAILY
Eliquis 2.5 MG tablet
2.5 mg PO BID
Digestive Enzymes(mal,lac,inv) 220 MG capsule
1 ea PO QPM
calcium carbonate 600 MG tablet
600 mg PO HS
tramadol 50 mg tablet
50 mg PO Q8H PRN (Reason: Pain) Qty: 14 0RF
multivitamin Tablet
1 tab PO DAILY
atorvastatin 20 mg Tablet
20 mg PO HS
alprazolam 0.25 mg Tablet
0.25 mg PO HS PRN (Reason: sleep)
diltiazem HCl [Cardizem] 120 mg Tablet
120 mg PO BID
hydroxyzine HCl 25 mg Tablet
50 mg PO Q8H PRN (Reason: swelling/reaction )
vitamin B6-vitamin E-magnesium Tablet
1 tab PO DAILY
C37-dncqe acid-B6-soy andino ext 6-400-2-93 ujs-lhv-zv-mg Tablet
1 tab PO DAILY
biotin 5,000 mcg Tablet, Sublingual
5,000 mcg SUBLINGUAL DAILY
Restore Joint And Muscle
1 tab PO DAILY
diphenhydramine-acetaminophen [Tylenol PM Extra Strength] 25-500 mg Tablet
2 tab PO HS PRN (Reason: sleep)
docusate sodium [Stool Softener] 100 mg Capsule
100 - 200 mg PO HS
flecainide 100 mg Tablet
100 mg PO Q12H
cetirizine [Zyrtec] 10 mg Tablet
10 mg PO DAILY PRN (Reason: allergies)
Activity Restrictions/Additional Instructions:
Thank you for visiting the Emergency Department at [facility].
1. Please schedule a follow up appointment as directed. Call first thing tomorrow morning to make an appointment.
2. If indicated, please take your medications as instructed and indicated on discharge paperwork.
3. If any of your symptoms do not improve, or persist, or become more severe within 6-12 hours, please return to the emergency department for further care.
4. Please return to the emergency department if you develop a headache, neck pain/stiffness, fever greater than 100.4F, chest pain, shortness of breath, persistent nausea, vomiting, slurred speech, difficulty walking, numbness/tingling, weakness,
signs of infection or any other symptoms that are worrisome to you.
Please call [phone] if you have any questions.
Interventions
Interventions:
*Risk Screen - Suicide Last Done: 02/23/25 08:08
*General Assessment Last Done: 02/23/25 08:21
*Neglect/Abuse Screening Last Done: 02/23/25 08:08
*ED- Fall Risk Assessment Last Done: 02/23/25 08:21
*ED COVID-19 Vaccine History Last Done: 02/23/25 08:21
Discharge Date and Time
Print Language: MONGOLIAN
== END 2025-02-23 08:53 | disposition home or self-care (01) ==
LOC: EMR 08:03
PROVIDERS: EMERGENCY PHYSICIAN Emergency Medicine; FAMILY PHYSICIAN Family Medicine
DX: S61.412A Laceration without foreign body of left hand, initial encounter (principal); L03.114 Cellulitis of left upper limb; I10 Essential (primary) hypertension; W45.8XXA Other foreign body or object entering through skin, initial encounter; I48.91 Unspecified atrial fibrillation; E78.00 Pure hypercholesterolemia, unspecified; I38 Endocarditis, valve unspecified; K58.9 Irritable bowel syndrome, unspecified; Z87.19 Personal history of other diseases of the digestive system; Z90.49 Acquired absence of other specified parts of digestive tract; Z90.710 Acquired absence of both cervix and uterus
CPT/HCPCS: 99282

== ENCOUNTER 2025-03-01 07:49 | Emergency (ER) | payer OTHER, SELFPAY ==
[2025-03-01 07:52] VITALS: BP 157/75
--- NOTE | 2025-03-01 08:15 | ED.GENMED ---
History of Present Illness
General
Chief Complaint: Fall
Source: patient
Time Seen by Provider: 03/01/25 07:58
History of Present Illness
History of Present Illness:
84-year-old female with past medical history of atrial fibrillation, hypertension, hyperlipidemia, currently undergoing the beginning stages of a workup for leukemia with [facility] presenting to the emergency department for
evaluation after she was excellently tripped by her house cat yesterday evening around 730 causing her to fall forward onto a wooden floor. Patient sustained skin tear to the right hand and right lower leg but states the main reason for her visit
to the ER is right anterior chest wall contusion. Patient does take Eliquis but she reports she did not hit her head, no loss consciousness, no headaches, no vomiting or any other concerns. She does state the area of bruising is tender to the
touch but she is not having any difficulty breathing, chest pain, shortness of breath.
Past History
Past History
ED Past Medical History: Arrthythmia (Atrial fib, followed by Dr. Centeno, had echo yesterday 'ok'), HTN, Hypercholesterolemia, Valvular disease, Psychiatric (Aniety) and Other (IBS,Hemorrhoids)
ED Past Surgical History: Appendectomy, Gynecological (Tubal, Hysterectomy) and Other (Breast lumpectomy, Lung surgery, Upper eye lid surgery)
Social History
Tobacco: Non-smoker
Alcohol: Daily (Wine 1 glass)
Drug: None
Personal:
Living: alone
Employment: Retired
Family History
Family History: Other (Noncontributory)
Review of Systems
Review of Systems
All Other Systems: ROS reviewed and negative except as documented in HPI and ROS
Phy Exam
Physical Exam
Physical Exam:
GENERAL: Alert , in no apparent distress
HEAD: Normocephalic atraumatic
EYE: conjunctiva clear
NECK: Supple, no midline tenderness
ENT: o/p clr, mmm.
CARDIAC: Regular rate and rhythm
LUNGS: Clear breath sounds bilaterally, no acute respiratory distress, no wheezes/rales/rhonchi
CHEST WALL: There is small approximately 1-1/2 cm x 1 cm contusion to the right anterior chest wall superior to the right breast with some mild overlying tenderness but no crepitus or palpable bony step-off or deformity
NEUROLOGICAL: Alert and oriented
SKIN: Warm and dry, superficial skin tear to the dorsum of the right hand in the interdigital webbing space as well as a small abrasion to the right anterior lower leg
MUSCULOSKELETAL: well perfused.
PSYCH: Normal and appropriate interaction.
Scores
Heart Failure Risk
Heart Failure Risk Score: Not Applicable
Heart Score for Chest Pain Patients
STEMI patient?: Not applicable
Withdrawal Assessment of Alcohol
Withdrawal Assessment Completed?: Not applicable
Course
Orders/Labs/Results
Orders:
Orders
03/01/25 08:07
CT Head W/o Iv Contrast Urgent
Comment:
Reason For Exam: fall, on eliquis
Wound Dressing- Treatment ONCE
Location of Wound: right hand and right lower leg
CR Ribs-right 3 Vw W/pa Chest* Urgent
Comment:
Reason For Exam: fall, anterior chest wall contusion/rib pain
Vital Signs
Initial and Last Documented VS:
Initial Vital Signs
Temp Pulse Resp BP Pulse Ox
97.9 F 77 18 157/75 98
03/01/25 07:52 03/01/25 07:52 03/01/25 07:52 03/01/25 07:52 03/01/25 07:52
Last Documented Vital Signs
Temp Pulse Resp BP Pulse Ox
97.6 F 82 20 136/81 99
03/01/25 09:31 03/01/25 09:31 03/01/25 09:31 03/01/25 09:31 03/01/25 09:31
MDM/Problems Addressed
Differential Diagnosis Includes:
Chest wall contusion, rib fracture, pneumothorax, superficial skin tear
MDM/Problems Addressed:
84-year-old female presenting to the ER for evaluation following accidental trip and fall that occurred around 7:30 PM last night, fell onto a wooden floor, main concern today is right anterior chest wall contusion. Patient is on anticoagulants but
maintains no head injury. Given the fall we will still obtain CT scan of the head, rib series ordered. Will place dressings over the skin tears. Disposition pending.
Chronic conditions affecting care: Arrhythmia (Atrial fibrillation and anticoagulated)
*Radiology
Radiology exam reviewed: preliminary read by ED provider (No acute rib fractures identified) and radiology read reviewed
*Pulse Oximetry
Patient hypoxic: no
*Critical Care Note
Total Time (30-74mins, 75-104mins- exclusive of procedures): Not Applicable
Patient Management
Escalation/DeEscalation of care consider admission/obs:
Patient's imaging is unremarkable for any acute pathology. She remains hemodynamically stable. At this time patient is stable for discharge home. Counseled on outpatient management. Wound care discussed. Patient stable for home.
ED Attending Note
-
Portions of this chart may have been created with voice recognition software.� Occasional wrong word or��sound alike� substitutions may have occurred due to the inherent limitations of voice recognition software.
Discharge Plan
Departure
Patient Disposition: Home (Routine Discharge)
Date of Disposition: 03/01/25
Time of Disposition: 09:21
Patient with high blood pressure during this ER visit?: Yes
Discharge Problem:
Chest wall contusion, Accidental fall
Instructions: Contusion (DC)
Prescriptions:
No Action
cholecalciferol (vitamin D3) [Vitamin D3] 1,000 UNIT capsule
1,000 unit PO DAILY
Eliquis 2.5 MG tablet
2.5 mg PO BID
Digestive Enzymes(mal,lac,inv) 220 MG capsule
1 ea PO QPM
calcium carbonate 600 MG tablet
600 mg PO HS
multivitamin Tablet
1 tab PO DAILY
atorvastatin 20 mg Tablet
20 mg PO HS
alprazolam 0.25 mg Tablet
0.25 mg PO HS PRN (Reason: sleep)
diltiazem HCl [Cardizem] 120 mg Tablet
120 mg PO BID
hydroxyzine HCl 25 mg Tablet
50 mg PO Q8H PRN (Reason: swelling/reaction )
vitamin B6-vitamin E-magnesium Tablet
1 tab PO DAILY
I17-gsgsn acid-B6-soy andino ext 6-400-2-93 qbi-mwb-xr-mg Tablet
1 tab PO DAILY
biotin 5,000 mcg Tablet, Sublingual
5,000 mcg SUBLINGUAL DAILY
Restore Joint And Muscle
1 tab PO DAILY
diphenhydramine-acetaminophen [Tylenol PM Extra Strength] 25-500 mg Tablet
2 tab PO HS PRN (Reason: sleep)
docusate sodium [Stool Softener] 100 mg Capsule
100 - 200 mg PO HS
flecainide 100 mg Tablet
100 mg PO Q12H
cetirizine [Zyrtec] 10 mg Tablet
10 mg PO DAILY PRN (Reason: allergies)
doxycycline hyclate 100 mg capsule
100 mg PO BID Qty: 20 0RF
Referrals:
Amy Hunt DO [Family Provider] -
Interventions
Interventions:
*Risk Screen - Suicide Last Done: 03/01/25 07:52
*General Assessment Last Done: 03/01/25 07:52
*Neglect/Abuse Screening Last Done: 03/01/25 07:52
*ED- Fall Risk Assessment Last Done: 03/01/25 09:28
*ED COVID-19 Vaccine History Last Done: 03/01/25 09:28
*Nursing Disposition Last Done: 03/01/25 09:32
ED-Musculoskeletal Assessment Last Done: 03/01/25 09:28
ED- Neurological Assessment Last Done: 03/01/25 09:28
ED-Skin Assessment Last Done: 03/01/25 09:28
Discharge Date and Time
Discharge Date/Time: 03/01/25 09:33
Print Language: CITIZEN OF [place]
[2025-03-01 09:28] VITALS: BMI 22.5
[2025-03-01 09:31] VITALS: BP 136/81
== END 2025-03-01 09:33 | disposition home or self-care (01) ==
LOC: EMR 07:49
PROVIDERS: EMERGENCY PHYSICIAN Emergency Medicine; FAMILY PHYSICIAN Family Medicine; REFERRING PHYSICIAN Internal Medicine Hematology & Oncology
DX: S20.211A Contusion of right front wall of thorax, initial encounter (principal); S61.411A Laceration without foreign body of right hand, initial encounter; W01.0XXA Fall on same level from slipping, tripping and stumbling without subsequent striking against object, initial encounter; E78.00 Pure hypercholesterolemia, unspecified; I10 Essential (primary) hypertension; I48.91 Unspecified atrial fibrillation; Z79.01 Long term (current) use of anticoagulants
CPT/HCPCS: 99284; 70450; 71101

== ENCOUNTER → 2025-03-03 09:54 | Outpatient (REF) | payer OTHER, SELFPAY ==
[2025-03-03 11:05] LABS: % Basophils 0.6 % (0-2); % Immature Granulocytes 0.4 % (0-0.5); % Lymphocytes 20.6 % (20.5-51.1); % Monocytes 6.4 % (1.7-9.3); Absolute Eosinophils 0.1 10^3/uL (0-0.7); Absolute Lymphocytes 1.1 10^3/uL (1.2-3.4); Absolute Monocytes 0.3 10^3/uL (0.1-0.6); Absolute Neutrophils 3.7 10^3/uL (1.4-6.5); Hematocrit 40.2 % (37.0-47.0); Hemoglobin 13.4 g/dL (12.0-16.0); Mean Corp Hgb Conc. 33.3 g/dL (33.0-37.0); Mean Corpuscular Hgb 32.1 pg (27.0-31.0); Mean Corpuscular Volume 96.2 fL (81.0-99.0); Mean Platelet Volume 9.4 fL (7.4-10.4); Nucleated Red Blood Cells % 0 %; Platelet Count 225 10^3/uL (130-400); Red Blood Cell Count 4.18 10^6/uL (4.20-5.40); Red Cell Dist. Width 14.5 % (11.5-14.5); White Blood Cell Count 5.1 10^3/uL (4.8-10.8)
[2025-03-03 11:54] LABS: ALT (SGPT) 18 U/L (0-35); AST (SGOT) 24 U/L (14-36); Albumin 4.3 g/dl (3.5-5.0); Alkaline Phosphatase 104 U/L (38-126); Blood Urea Nitrogen 13 mg/dl (7-17); Calcium 9.9 mg/dl (8.4-10.2); Carbon Dioxide 27 mmol/L (22-30); Chloride 104 mmol/L (98-107); Glucose 72 mg/dl (70-99); LDH 201 U/L (120-246); Potassium 3.9 mmol/L (3.5-5.1); Sodium 141 mmol/L (135-145); Total Bilirubin 0.7 mg/dl (0.2-1.3); Total Protein 6.9 g/dl (6.3-8.2); Uric Acid 4.9 mg/dl (2.5-6.2); eGFR > 60.00
== END ==
LOC: RCS 09:54
PROVIDERS: ATTENDING PHYSICIAN Internal Medicine Hematology & Oncology; FAMILY PHYSICIAN Family Medicine; REFERRING PHYSICIAN Internal Medicine Cardiovascular Disease
DX: R23.3 Spontaneous ecchymoses (principal); R79.9 Abnormal finding of blood chemistry, unspecified; D50.9 Iron deficiency anemia, unspecified; D52.8 Other folate deficiency anemias; D68.00 Von Willebrand disease, unspecified; D51.9 Vitamin B12 deficiency anemia, unspecified
CPT/HCPCS: 36415; 80053; 83615; 84550; 85025; 93306; 93356

== ENCOUNTER 2025-03-11 01:33 | Emergency (ER) | payer OTHER, SELFPAY ==
[2025-03-11 01:35] VITALS: BP 158/61; BMI 19.7
[2025-03-11 02:00] VITALS: BP 158/62
[2025-03-11 02:11] LABS: ALT (SGPT) 19 U/L (0-35); AST (SGOT) 24 U/L (14-36); Albumin 4.3 g/dl (3.5-5.0); Alkaline Phosphatase 101 U/L (38-126); Blood Urea Nitrogen 9 mg/dl (7-17); Calcium 9.3 mg/dl (8.4-10.2); Carbon Dioxide 23 mmol/L (22-30); Chloride 107 mmol/L (98-107); Estimated Creatinine Clearance 45 ml/min; Glucose 98 mg/dl (70-99); Potassium 3.7 mmol/L (3.5-5.1); Sodium 139 mmol/L (135-145); Total Bilirubin 0.5 mg/dl (0.2-1.3); Total Protein 6.4 g/dl (6.3-8.2); eGFR > 60.00
--- NOTE | 2025-03-11 02:15 | ED.GENMED ---
History of Present Illness
General
Chief Complaint: Headache
Source: patient and ambulance crew
Exam Limitations: none
Time Seen by Provider: 03/11/25 01:41
Nursing documentation reviewed up to this point in time: agreed with
History of Present Illness
History of Present Illness:
84-year-old female presents with typical migraine. She states that she has had a left-sided headache, which she frequently experiences that began several hours ago. She states that she took tramadol and Tylenol and went to bed. She awakened
around midnight with the same pain. She did report some left jaw pain and numbness. Denies chest pain or shortness of breath.
Past History
Past History
ED Past Medical History: Arrthythmia (Atrial fib, followed by Dr. Centeno, had echo yesterday 'ok'), HTN, Hypercholesterolemia, Valvular disease, Psychiatric (Aniety) and Other (IBS,Hemorrhoids)
ED Past Surgical History: Appendectomy, Gynecological (Tubal, Hysterectomy) and Other (Breast lumpectomy, Lung surgery, Upper eye lid surgery)
Social History
Tobacco: Non-smoker
Alcohol: Daily (Wine 1 glass)
Drug: None
Personal:
Living: alone
Employment: Retired
Family History
Family History: Other (Noncontributory)
Review of Systems
Review of Systems
Allergies reviewed?: Yes
All Other Systems: ROS reviewed and negative except as documented in HPI and ROS
Neurological: Reports headache
Psychiatric: Reports anxiety
Phy Exam
General Physical Exam
General Presentation: well appearing, no apparent distress and other (Patient texting at the time of exam)
General Skin: warm and dry
General Habitus: normal
General Mental: alert
General Hydration: appears well hydrated
ENT Exam
ENT Exam: EOMI, pharynx normal, neck supple and normocephalic
Eye Exam
Eye Exam: PERRL, cornea clear and conjunctiva normal
Cardiovascular Exam
Cardiovascular Exam: regular rate/rhythm, no edema, no murmur and normal peripheral pulses
Pulmonary Exam
Pulmonary Exam: lungs clear, no respiratory distress, no rales, no crackles, no rhonchi, no stridor, no wheezing and no cough
Gastrointestinal Exam
Gastrointestinal Exam: normal bowel sounds, non tender, soft, no organomegaly, no pulsatile mass and non distended
Neurological Exam
Neurological Exam: alert, oriented x3, no motor deficits and speech normal
Musculoskeletal Exam
Musculoskeletal Exam: full ROM and no edema
Skin Exam
Skin Exam: normal color, warm/dry, no rash and no petechia
Psychiatric Exam
Psychiatric Exam: normal mood/affect
Course
Orders/Labs/Results
Orders:
Orders
03/11/25 01:45
Complete Blood Count/With Diff Urgent
Comprehensive Metabolic Panel Urgent
03/11/25 02:04
CT Head W/o Iv Contrast Urgent
Comment:
Reason For Exam: headache, left facial pain
0.9% Sodium Chloride 1000 ml [Nss] 1,000 ml IV BOLUS
Dexamethasone Sod Phosphate [Decadron] 10 mg IV NOW STA
Diphenhydramine [Benadryl] 25 mg IV NOW STA
Metoclopramide [Reglan] 10 mg IV NOW STA
03/11/25 02:17
Electrocardiogram (*1) Urgent
Reason for Study: Other
Other Reason for Exam: jaw pain
EKG- Treatment ONCE
Abnormal Lab Results
03/11/25
01:45
WBC 3.7 L 10^3/uL
(4.8-10.8)
RBC 3.74 L 10^6/uL
(4.20-5.40)
Hct 35.1 L %
(37.0-47.0)
MCH 32.6 H pg
(27.0-31.0)
Monocytes % 9.9 H %
(1.7-9.3)
03/11/25 01:45
03/11/25 01:45
Vital Signs
Initial and Last Documented VS:
Initial Vital Signs
BP
158/61
03/11/25 01:35
Last Documented Vital Signs
Temp Pulse Resp BP Pulse Ox
97.6 F 53 13 108/45 97
03/11/25 01:39 03/11/25 04:00 03/11/25 04:00 03/11/25 04:00 03/11/25 04:00
*EKG
Interpreted by ED Provider?: Yes
Interpretation: normal
Comparison EKG: no changes (From November 16, 2024)
Heart Rate: 58
Rate: normal
Rhythm: sinus
[place]: left axis deviation
Interval: normal interval
QRS Pattern: right bundle branch block
Ischemia: no ischemia
*Critical Care Note
Total Time (30-74mins, 75-104mins- exclusive of procedures): Not Applicable
Update Note
Update Note:
Patient states that she is feeling better and wishes to be discharged home. Reviewed CT scan with her.
ED Attending Note
-
Portions of this chart may have been created with voice recognition software.� Occasional wrong word or��sound alike� substitutions may have occurred due to the inherent limitations of voice recognition software.
Discharge Plan
Departure
Patient Disposition: Home (Routine Discharge)
Date of Disposition: 03/11/25
Time of Disposition: 04:17
Patient with high blood pressure during this ER visit?: No
Discharge Problem:
Headache, migraine
Instructions: Headache, Adult (DC)
Prescriptions:
No Action
cholecalciferol (vitamin D3) [Vitamin D3] 1,000 UNIT capsule
1,000 unit PO DAILY
Eliquis 2.5 MG tablet
2.5 mg PO BID
Digestive Enzymes(mal,lac,inv) 220 MG capsule
1 ea PO QPM
calcium carbonate 600 MG tablet
600 mg PO HS
multivitamin Tablet
1 tab PO DAILY
atorvastatin 20 mg Tablet
20 mg PO HS
alprazolam 0.25 mg Tablet
0.25 mg PO HS PRN (Reason: sleep)
diltiazem HCl [Cardizem] 120 mg Tablet
120 mg PO BID
hydroxyzine HCl 25 mg Tablet
50 mg PO Q8H PRN (Reason: swelling/reaction )
vitamin B6-vitamin E-magnesium Tablet
1 tab PO DAILY
M27-[id number] acid-B6-soy andino ext [id number] ysj-iml-dv-mg Tablet
1 tab PO DAILY
biotin 5,000 mcg Tablet, Sublingual
5,000 mcg SUBLINGUAL DAILY
Restore Joint And Muscle
1 tab PO DAILY
diphenhydramine-acetaminophen [Tylenol PM Extra Strength] 25-500 mg Tablet
2 tab PO HS PRN (Reason: sleep)
docusate sodium [Stool Softener] 100 mg Capsule
100 - 200 mg PO HS
flecainide 100 mg Tablet
100 mg PO Q12H
cetirizine [Zyrtec] 10 mg Tablet
10 mg PO DAILY PRN (Reason: allergies)
doxycycline hyclate 100 mg capsule
100 mg PO BID Qty: 20 0RF
Referrals:
Amy Hunt DO [Family Provider] -
Activity Restrictions/Additional Instructions:
Thank You for choosing [facility].
It was a pleasure meeting you and taking part in your care. We hope for your continued healing and wellness.
Please read discharge instructions in their entirety. However, they are for general education and may not describe your exact diagnosis at discharge. Information on your ER visit and medical conditions were discussed with you along with appropriate
follow up information...
If indicated, please take your medications as instructed and indicated on discharge paperwork.
Please schedule a follow up appointment as directed. Call to schedule an appointment
Please return to the emergency department with ANY change in, persisting, or worsening of symptoms. If any of your symptoms do not improve, or persist, or become more severe within 6-12 hours, please return to the emergency department for further
care.
Please return to the emergency department if you develop a headache, neck pain/stiffness, fever greater than 100.4F, chest pain, shortness of breath, persistent nausea, vomiting, slurred speech, difficulty walking, numbness/tingling, weakness, signs
of infection or any other symptoms that are worrisome to you.
If you have any questions or concerns please do not hesitate to call the Hospital at or E-mail me directly at [email or web address]
Interventions
Interventions:
*Risk Screen - Suicide Last Done: 03/11/25 01:35
*General Assessment Last Done: 03/11/25 01:35
*Neglect/Abuse Screening Last Done: 03/11/25 01:35
*ED- Fall Risk Assessment Last Done: 03/11/25 01:35
*ED COVID-19 Vaccine History Last Done: 03/11/25 01:35
ED- Neurological Assessment Last Done: 03/11/25 01:40
Discharge Date and Time
Print Language: YAKUT
[2025-03-11 02:17] LABS: Hematocrit 35.1 % (37.0-47.0); Hemoglobin 12.2 g/dL (12.0-16.0); Mean Corp Hgb Conc. 34.8 g/dL (33.0-37.0); Mean Corpuscular Hgb 32.6 pg (27.0-31.0); Mean Corpuscular Volume 93.9 fL (81.0-99.0); Mean Platelet Volume 8.9 fL (7.4-10.4); Platelet Count 255 10^3/uL (130-400); Red Blood Cell Count 3.74 10^6/uL (4.20-5.40); Red Cell Dist. Width 14.3 % (11.5-14.5); White Blood Cell Count 3.7 10^3/uL (4.8-10.8)
[2025-03-11] MEDS: BENADRYL 25 MG IV (02:21)
[2025-03-11] MEDS: NSS 1000 IV (02:22)
[2025-03-11] MEDS: REGLAN 10 MG IV (02:22)
[2025-03-11] MEDS: DECADRON 10 MG IV (02:22)
[2025-03-11 02:53] LABS: % Basophils 0.8 % (0-2); % Eosinophils 3.2 % (0-6); % Immature Granulocytes 0.3 % (0-0.5); % Lymphocytes 31.2 % (20.5-51.1); % Monocytes 9.9 % (1.7-9.3); % Neutrophils 54.6 % (42.2-75.2); Absolute Eosinophils 0.1 10^3/uL (0-0.7); Absolute Lymphocytes 1.2 10^3/uL (1.2-3.4); Absolute Monocytes 0.4 10^3/uL (0.1-0.6); Nucleated Red Blood Cells % 0 %
[2025-03-11 03:00] VITALS: BP 143/59
[2025-03-11 04:00] VITALS: BP 108/45
== END 2025-03-11 04:45 | disposition home or self-care (01) ==
LOC: EMR 01:33
PROVIDERS: EMERGENCY PHYSICIAN Student in an Organized Health Care Education/Training Program; FAMILY PHYSICIAN Family Medicine
DX: G43.909 Migraine, unspecified, not intractable, without status migrainosus (principal); I45.10 Unspecified right bundle-branch block; I10 Essential (primary) hypertension; E78.00 Pure hypercholesterolemia, unspecified; Z87.19 Personal history of other diseases of the digestive system; Z90.710 Acquired absence of both cervix and uterus; Z90.49 Acquired absence of other specified parts of digestive tract
CPT/HCPCS: 96374; 96375; 96361; 99284; 70450; 80053; 85025; 93005

== ENCOUNTER → 2025-03-23 06:47 | Outpatient (REF) | payer OTHER, SELFPAY ==
[2025-03-23] VITALS (12 sets, daily range): BP systolic 68–150; BP diastolic 53–68
[2025-03-23 07:30] LABS: % Basophils 0.4 % (0-2); % Eosinophils 0.5 % (0-6); % Immature Granulocytes 0.4 % (0-0.5); % Lymphocytes 12.2 % (20.5-51.1); % Monocytes 6.8 % (1.7-9.3); % Neutrophils 79.7 % (42.2-75.2); Absolute Monocytes 0.5 10^3/uL (0.1-0.6); Absolute Neutrophils 6.4 10^3/uL (1.4-6.5); Hematocrit 38.3 % (37.0-47.0); Hemoglobin 12.9 g/dL (12.0-16.0); Mean Corp Hgb Conc. 33.7 g/dL (33.0-37.0); Mean Corpuscular Hgb 32.7 pg (27.0-31.0); Mean Corpuscular Volume 97.2 fL (81.0-99.0); Mean Platelet Volume 9.1 fL (7.4-10.4); Nucleated Red Blood Cells % 0 %; Platelet Count 222 10^3/uL (130-400); Red Blood Cell Count 3.94 10^6/uL (4.20-5.40); Red Cell Dist. Width 14.5 % (11.5-14.5)
[2025-03-23 07:38] LABS: INR 0.96; PT 13.2 Sec (11.4-14.6)
[2025-03-23] MEDS: NSS (PRESERVATIVE FREE) 0.25 ML IV (08:39)
[2025-03-23] MEDS: ATIVAN 0.5 MG IV (08:39)
[2025-03-23] MEDS: FLUSH (NSS) 1 FLUSH IV (08:39)
[2025-03-23] MEDS: ANCEF 10 IV (09:21)
== END ==
LOC: RADI 06:47
PROVIDERS: ATTENDING PHYSICIAN Internal Medicine Hematology & Oncology; FAMILY PHYSICIAN Family Medicine; OTHER PHYSICIAN Physician Assistant
DX: C83.30 Diffuse large B-cell lymphoma, unspecified site (principal); D68.8 Other specified coagulation defects; R79.9 Abnormal finding of blood chemistry, unspecified; D68.00 Von Willebrand disease, unspecified; D50.9 Iron deficiency anemia, unspecified
CPT/HCPCS: 88305; 88311; 88312; 36415; 36561; 38222; 76937; 77001; 77012; 85025; 85610; 88313; 99152; 99153; C1788

== ENCOUNTER 2025-04-15 05:54 | Emergency (ER) | payer OTHER, SELFPAY ==
[2025-04-15 05:57] VITALS: BP 146/57
[2025-04-15 06:00] VITALS: BP 146/57
[2025-04-15 06:18] LABS: % Basophils 0.5 % (0-2); % Eosinophils 1.1 % (0-6); % Immature Granulocytes 0.3 % (0-0.5); % Lymphocytes 14.8 % (20.5-51.1); % Monocytes 9.2 % (1.7-9.3); % Neutrophils 74.1 % (42.2-75.2); Absolute Eosinophils 0.1 10^3/uL (0-0.7); Absolute Monocytes 0.6 10^3/uL (0.1-0.6); Absolute Neutrophils 4.9 10^3/uL (1.4-6.5); Hematocrit 36.1 % (37.0-47.0); Hemoglobin 12.4 g/dL (12.0-16.0); Mean Corp Hgb Conc. 34.3 g/dL (33.0-37.0); Mean Corpuscular Hgb 32.9 pg (27.0-31.0); Mean Corpuscular Volume 95.8 fL (81.0-99.0); Mean Platelet Volume 9.3 fL (7.4-10.4); Nucleated Red Blood Cells % 0 %; Platelet Count 234 10^3/uL (130-400); Red Blood Cell Count 3.77 10^6/uL (4.20-5.40); Red Cell Dist. Width 13.4 % (11.5-14.5); White Blood Cell Count 6.6 10^3/uL (4.8-10.8)
[2025-04-15 06:30] LABS: ALT (SGPT) 14 U/L (0-35); AST (SGOT) 27 U/L (14-36); Albumin 4.1 g/dl (3.5-5.0); Alkaline Phosphatase 86 U/L (38-126); Blood Urea Nitrogen 12 mg/dl (7-17); Calcium 9.1 mg/dl (8.4-10.2); Carbon Dioxide 23 mmol/L (22-30); Chloride 110 mmol/L (98-107); Estimated Creatinine Clearance 46 ml/min; Glucose 95 mg/dl (70-99); Potassium 4.1 mmol/L (3.5-5.1); Sodium 140 mmol/L (135-145); Total Bilirubin 0.7 mg/dl (0.2-1.3); Total Protein 6.5 g/dl (6.3-8.2); eGFR > 60.00
[2025-04-15 06:41] LABS: Troponin I < 0.012 ng/ml
[2025-04-15 07:00] VITALS: BP 144/55
--- NOTE | 2025-04-15 07:37 | ED.GENMED ---
History of Present Illness
General
Chief Complaint: Extremity Pain (non-traumatic)
Time Seen by Provider: 04/15/25 07:37
History of Present Illness
History of Present Illness:
TIME OF INITIAL ENCOUNTER: 7:40 AM
HPI: She had a biopsy of a left axillary node by Dr. Brady this past January. She was diagnosed with lymphoma and had a port placed last week. She has not had any chemo yet. She comes in today because of a few days of worsening left axillary
discomfort.
EXAM:
GENERAL: Well appearing in no distress
HEENT: Moist oral mucosa
CARDIOVASCULAR: No murmurs, normal heart rate, regular rhythm, No chest wall tenderness
PULMONARY: No respiratory distress, breath sounds are clear and equal
ABDOMEN: Soft with no peritoneal signs, no tenderness
NEUROLOGIC: Excellent strength all extremities, no coordination deficits
PSYCHIATRIC: Appropriate mental status, normal insight and judgement
EXTREMITIES: There is some soft tissue swelling in the left axillary region with no overlying erythema, there is no significant tenderness, questionable palpable lymph node, question seroma
SKIN: No rash, no lesions
NUMBER AND COMPLEXITY OF PROBLEMS ADDRESSED AT THE ENCOUNTER
� Chronic conditions affecting care: Recent diagnosis of lymphoma
� Acute Exacerbation and/or Progression of Chronic Illness: This is an acute problem
� Differential Diagnosis includes: surgical wound infection, abscess, lymphoma, lymphadenitis
AMOUNT AND/OR COMPLEXITY OF DATA TO BE REVIEWED AND ANALYZED
� I performed an independent evaluation of and my interpretation is:
EKG: Sinus 65, left axis deviation, right bundle branch block
CT:
X-rays:
Laboratory Studies: CBC, chemistries and troponin unremarkable
Other: Ultrasound reviewed.
� Review of other/old records: Ultrasound imaging shows a 4.5 cm hypoechoic hypovascular soft tissue mass and enlarged lymph nodes consistent with lymphoma similar to study from February 2025.
� Clinical information was obtained by an independent historian: None needed
� Prescriptions/Medications Considered but not given:
� Further testing considered but not performed:
RISK OF COMPLICATIONS AND/OR MORBIDITY OR MORTALITY OF PATIENT MANAGEMENT
� Social determinants of health affecting care: Lives at home
� Discussion with other providers:
� Escalation of care including admission/observation vs risk of discharge considered: Ultrasound imaging is consistent with known diagnosis of lymphoma. No other abnormality. She was given Tylenol for headache. She is to
follow-up with Dr. Castro tomorrow.
ANY OTHER UPDATES:
Past History
Past History
ED Past Medical History: Arrthythmia (Atrial fib, followed by Dr. Centeno, had echo yesterday 'ok'), HTN, Hypercholesterolemia, Valvular disease, Psychiatric (Aniety) and Other (IBS,Hemorrhoids)
ED Past Surgical History: Appendectomy, Gynecological (Tubal, Hysterectomy) and Other (Breast lumpectomy, Lung surgery, Upper eye lid surgery)
Social History
Tobacco: Non-smoker
Alcohol: Daily (Wine 1 glass)
Drug: None
Personal:
Living: alone
Employment: Retired
Family History
Family History: Other (Noncontributory)
Phy Exam
Physical Exam
Physical Exam:
See HPI
Course
Orders/Labs/Results
Orders:
Orders
04/15/25 05:56
Electrocardiogram (*1) Urgent
Reason for Study: Chest Pain
Cardiac Monitoring- Treatment ONCE
EKG- Treatment ONCE
IV Insert/Care/Rem.- Treatment PRN
O2 Therapy [RESP] Urgent
Titrate/Wean O2 to maintain O2 sat greater than (%): 90
Special Instructions: Maintain sats >/=90%
Pulse Ox/spot Check [RESP] Urgent
Quantity: 1
Special Instructions: ON ROOM AIR
04/15/25 06:05
Complete Blood Count/With Diff Urgent
Comprehensive Metabolic Panel Urgent
Troponin I Urgent
04/15/25 07:42
Non Vasc Upper Ext Left US [US Non Vasc UPPER Ext LT] Urgent
Comment:
Reason For Exam: swelling L axilla after biopsy (lymphoma)
04/15/25 10:05
Acetaminophen [Tylenol] 1,000 mg .ROUTE .STK-MED ONE
04/15/25 10:07
Acetaminophen [Tylenol] 1,000 mg PO NOW STA
Abnormal Lab Results
04/15/25
06:05
RBC 3.77 L 10^6/uL
(4.20-5.40)
Hct 36.1 L %
(37.0-47.0)
MCH 32.9 H pg
(27.0-31.0)
Absolute Lymphs (auto) 1.0 L 10^3/uL
(1.2-3.4)
Lymphocytes % 14.8 L %
(20.5-51.1)
Chloride 110 H mmol/L
(98-107)
04/15/25 06:05
04/15/25 06:05
Vital Signs
Initial and Last Documented VS:
Initial Vital Signs
Temp Pulse Resp BP Pulse Ox
36.7 C 63 12 146/57 100
04/15/25 05:57 04/15/25 05:57 04/15/25 05:57 04/15/25 05:57 04/15/25 05:57
Last Documented Vital Signs
Temp Pulse Resp BP Pulse Ox
36.7 C 77 11 139/66 99
04/15/25 05:57 04/15/25 10:08 04/15/25 10:08 04/15/25 10:08 04/15/25 10:08
*Critical Care Note
Total Time (30-74mins, 75-104mins- exclusive of procedures): Not Applicable
ED Attending Note
-
Portions of this chart may have been created with voice recognition software.� Occasional wrong word or��sound alike� substitutions may have occurred due to the inherent limitations of voice recognition software.
Discharge Plan
Departure
Patient Disposition: Home (Routine Discharge)
Date of Disposition: 04/15/25
Time of Disposition: 10:14
Patient with high blood pressure during this ER visit?: Yes
Discharge Problem:
Lymphoma
Instructions: Lymphoma (DC), BLOOD PRESSURE
Prescriptions:
No Action
cholecalciferol (vitamin D3) [Vitamin D3] 1,000 UNIT capsule
1,000 unit PO DAILY
multivitamin Tablet
1 tab PO Q48H
atorvastatin 20 mg Tablet
20 mg PO DAILY
alprazolam 0.25 mg Tablet
0.25 mg PO Q6H
diltiazem HCl [Cardizem] 120 mg Tablet
120 mg PO DAILY
biotin 5,000 mcg Tablet, Sublingual
5,000 mcg SUBLINGUAL DAILY
flecainide 100 mg Tablet
100 mg PO BID
cetirizine [Zyrtec] 10 mg Tablet
10 mg PO DAILY PRN (Reason: allergies)
tramadol 50 mg Tablet
100 mg PO Q8H PRN (Reason: pain)
diphenhydramine HCl [Benadryl Allergy] 25 mg Tablet
25 mg PO HS PRN (Reason: allergy/sleep)
simethicone [Gas-X Extra Strength] 125 mg Tablet,Chewable
125 mg PO QID PRN (Reason: indigestion)
ascorbic acid (vitamin C) 1,000 mg Tablet
1,000 mg PO DAILY
amoxicillin 500 mg Tablet
500 mg PO BID
diltiazem HCl 120 mg Tablet Extended Release 24 Hr
240 mg PO HS
Eliquis 2.5 mg Tablet
2.5 mg PO BID
acetaminophen [Tylenol] 325 mg Tablet
650 mg PO DAILYPRN PRN (Reason: pain)
Referrals:
Olivier Castro, DO [Active, Hematology / Oncology]
Amy Hunt DO [Family Provider, Family Practice]
Activity Restrictions/Additional Instructions:
Follow-up with Dr. Castro tomorrow. Return here if worse or other concerns. Basic blood work is unremarkable.
Ultrasound shows 'There is a 4.5 x 2.3 x 2.9 cm hypoechoic soft tissue mass in the left subpectoral region which has lobular margins. There is a mild amount of edema surrounding the mass extending into the overlying subcutaneous fat consistent with
recent biopsy. There are adjacent 1.3 cm and 1.6 cm enlarged hypoechoic left axillary lymph nodes consistent with malignant lymphoma. The masses do not demonstrate internal vascularity on color duplex evaluation'.
Interventions
Interventions:
*Risk Screen - Suicide Last Done: 04/15/25 05:57
*General Assessment Last Done: 04/15/25 05:57
*Neglect/Abuse Screening Last Done: 04/15/25 05:57
*ED- Fall Risk Assessment Last Done: 04/15/25 06:21
*ED COVID-19 Vaccine History Last Done: 04/15/25 07:20
ED-Skin Assessment Last Done: 04/15/25 06:21
ED-Peripheral Vascular Assessment Last Done: 04/15/25 07:21
ED-Musculoskeletal Assessment Last Done: 04/15/25 07:21
Discharge Date and Time
Print Language: KOREAN
--- NOTE | 2025-04-15 07:41 | EDRN ---
Dr. Winchester in room w/ pt at this time.
[2025-04-15 08:30] VITALS: BP 134/50
[2025-04-15 09:00] VITALS: BP 117/51
[2025-04-15 10:08] VITALS: BP 139/66
[2025-04-15] MEDS: TYLENOL 1000 MG PO (10:08)
== END 2025-04-15 10:40 | disposition home or self-care (01) ==
LOC: EMR 05:54
PROVIDERS: Emergency Medicine; EMERGENCY PHYSICIAN Emergency Medicine; FAMILY PHYSICIAN Family Medicine
DX: C85.90 Non-Hodgkin lymphoma, unspecified, unspecified site (principal); R22.32 Localized swelling, mass and lump, left upper limb; I45.10 Unspecified right bundle-branch block; E78.00 Pure hypercholesterolemia, unspecified; I10 Essential (primary) hypertension; Z90.710 Acquired absence of both cervix and uterus; Z95.828 Presence of other vascular implants and grafts
CPT/HCPCS: 99284; 76882; 80053; 84484; 85025; 93005

== ENCOUNTER → 2025-04-20 11:06 | Outpatient (REF) | payer OTHER, SELFPAY ==
[2025-04-20 12:12] LABS: % Basophils 0.1 % (0-2); % Immature Granulocytes 0.4 % (0-0.5); % Lymphocytes 5.5 % (20.5-51.1); % Monocytes 2.1 % (1.7-9.3); % Neutrophils 91.9 % (42.2-75.2); Absolute Lymphocytes 0.4 10^3/uL (1.2-3.4); Absolute Monocytes 0.2 10^3/uL (0.1-0.6); Absolute Neutrophils 6.7 10^3/uL (1.4-6.5); Mean Corp Hgb Conc. 33.3 g/dL (33.0-37.0); Mean Platelet Volume 9.2 fL (7.4-10.4); Nucleated Red Blood Cells % 0 %; Platelet Count 294 10^3/uL (130-400); Red Blood Cell Count 3.75 10^6/uL (4.20-5.40); Red Cell Dist. Width 12.6 % (11.5-14.5); White Blood Cell Count 7.3 10^3/uL (4.8-10.8)
[2025-04-20 12:17] LABS: Urine Albumin Negative (Neg - Trace); Urine Bilirubin Negative (Negative); Urine Character Clear (Clear); Urine Color Yellow; Urine Glucose Negative (Negative); Urine Ketone Negative (Negative); Urine Leukocyte Negative (Negative); Urine Nitrite Negative (Negative); Urine Occult Blood Negative (Negative); Urine Specific Gravity 1.015 (<1.030); Urine Urobilinogen Negative (Neg - 1+)
[2025-04-20 12:41] LABS: AST (SGOT) 26 U/L (14-36); Albumin 4.4 g/dl (3.5-5.0); Alkaline Phosphatase 102 U/L (38-126); Blood Urea Nitrogen 17 mg/dl (7-17); Carbon Dioxide 23 mmol/L (22-30); Chloride 104 mmol/L (98-107); Glucose 145 mg/dl (70-99); LDH 190 U/L (120-246); Sodium 139 mmol/L (135-145); Total Bilirubin 0.6 mg/dl (0.2-1.3); Total Protein 7.3 g/dl (6.3-8.2); eGFR > 60.00
[2025-04-20 12:53] LABS: ALT (SGPT) 31 U/L (0-35)
[2025-04-20 17:24] LABS: Hepatitis B Surface Antigen Negative (Negative)
[2025-04-20 17:42] LABS: Hepatitis B Core Ab, Total Negative (Negative)
== END ==
LOC: REG 11:06
PROVIDERS: ATTENDING PHYSICIAN Internal Medicine Hematology & Oncology; FAMILY PHYSICIAN Family Medicine
DX: R23.3 Spontaneous ecchymoses (principal); R79.9 Abnormal finding of blood chemistry, unspecified; D50.9 Iron deficiency anemia, unspecified; D52.8 Other folate deficiency anemias; D68.00 Von Willebrand disease, unspecified; D51.9 Vitamin B12 deficiency anemia, unspecified; C83.30 Diffuse large B-cell lymphoma, unspecified site; R30.0 Dysuria
CPT/HCPCS: 36415; 80053; 81003; 83615; 85025; 86704; 87086; 87340

== ENCOUNTER 2025-04-21 08:10 | Emergency (ER) | payer OTHER, SELFPAY ==
[2025-04-21 08:49] LABS: % Immature Granulocytes 0.3 % (0-0.5); % Lymphocytes 4.6 % (20.5-51.1); % Neutrophils 91.1 % (42.2-75.2); Absolute Lymphocytes 0.4 10^3/uL (1.2-3.4); Absolute Monocytes 0.4 10^3/uL (0.1-0.6); Hematocrit 40.9 % (37.0-47.0); Hemoglobin 13.9 g/dL (12.0-16.0); Mean Corpuscular Hgb 32.5 pg (27.0-31.0); Mean Corpuscular Volume 95.6 fL (81.0-99.0); Mean Platelet Volume 9.2 fL (7.4-10.4); Nucleated Red Blood Cells % 0 %; Platelet Count 355 10^3/uL (130-400); Red Blood Cell Count 4.28 10^6/uL (4.20-5.40); Red Cell Dist. Width 12.7 % (11.5-14.5); White Blood Cell Count 8.7 10^3/uL (4.8-10.8)
[2025-04-21 09:09] LABS: D-Dimer 1.86 ug/mlFEU (0.00-0.50)
[2025-04-21 09:13] LABS: ALT (SGPT) 41 U/L (0-35); AST (SGOT) 42 U/L (14-36); Albumin 4.5 g/dl (3.5-5.0); Alkaline Phosphatase 101 U/L (38-126); Blood Urea Nitrogen 24 mg/dl (7-17); Carbon Dioxide 24 mmol/L (22-30); Chloride 107 mmol/L (98-107); Glucose 129 mg/dl (70-99); Potassium 4.5 mmol/L (3.5-5.1); Sodium 142 mmol/L (135-145); Total Bilirubin 0.4 mg/dl (0.2-1.3); Total Protein 7.4 g/dl (6.3-8.2); eGFR > 60.00
[2025-04-21 09:28] VITALS: BP 124/104
[2025-04-21 09:30] VITALS: BMI 19.5
[2025-04-21 10:00] VITALS: BP 133/110
--- NOTE | 2025-04-21 10:02 | ED.GENMED ---
History of Present Illness
General
Chief Complaint: Chest Pain
Time Seen by Provider: 04/21/25 09:41
History of Present Illness
History of Present Illness:
Patient is an 84-year-old female with past medical history of prior left lung lobectomy in the secondary to benign mass, prior tobacco use, aortic stenosis, atrial fibrillation on Eliquis (reports compliance), known heart murmur, hypertension,
hyperlipidemia, history of PVCs, constipation, IBS, hemorrhoids, anxiety, and history of recently diagnosed lymphoma 3 months ago not currently on chemotherapy currently follows with oncology, here today for evaluation of left-sided chest
tightness/heaviness associated with shortness of breath that began 2 days ago. She also felt like her heart was beating fast and did check her heart rate at home and noted to be elevated. She also found that her oxygen level was noted to be low at
home however it turns out her reading was upside down and actually within normal limits. She denies other associated symptoms. No fevers or vomiting. No lower extremity pain or swelling. She has been taking her medication as directed including
her anticoagulant. She contacted her spring bender secondary to her symptoms and was ultimately directed to the emergency department for further testing/evaluation. Of note, the patient did recently undergo a right chest wall port placement on
03/23/2025.
Past History
Past History
ED Past Medical History: Arrthythmia (Atrial fib, followed by Dr. Centeno, had echo yesterday 'ok'), HTN, Hypercholesterolemia, Valvular disease, Psychiatric (Aniety) and Other (IBS,Hemorrhoids)
ED Past Surgical History: Appendectomy, Gynecological (Tubal, Hysterectomy) and Other (Breast lumpectomy, Lung surgery, Upper eye lid surgery)
Social History
Tobacco: Non-smoker
Alcohol: Daily (Wine 1 glass)
Drug: None
Personal:
Living: alone
Employment: Retired
Family History
Family History: Other (Noncontributory)
Review of Systems
Review of Systems
All Other Systems: ROS reviewed and negative except as documented in HPI and ROS
Phy Exam
Physical Exam
Physical Exam:
GENERAL: Alert , in no apparent distress
EYE: pupils equal and reactive
NECK: Supple, no significant adenopathy.
ENT: o/p clr, mmm.
CARDIAC: Regular rate and rhythm. (+) cardiac murmur
CHEST WALL: Right sided chest wall port in place
LUNGS: Clear breath sounds bilaterally, no acute respiratory distress, no wheezes/rales/rhonchi
ABDOMEN: Soft, without focal tenderness, no r/g, no cvat
NEUROLOGICAL: Alert and oriented, no focal neuro deficits
SKIN: Warm and dry, skin intact.
MUSCULOSKELETAL: No edema, well perfused.
PSYCH: Normal and appropriate interaction.
Scores
Heart Score for Chest Pain Patients
STEMI patient?: No
History: Slightly or Non-Suspicious
ECG: Normal
Age: >/= 65 years
Risk Factors: 1 or 2 Risk Factors
Troponin: </= Normal Limit
Heart Score for Chest Pain Patients: 3
Heart Score Risk: 2.5% MACE over next 6 weeks
Course
Orders/Labs/Results
Orders:
Orders
04/21/25 08:18
Electrocardiogram (*1) Urgent
Reason for Study: Chest Pain
EKG- Treatment ONCE
04/21/25 08:33
CMP [Comprehensive Metabolic Panel] Urgent
Complete Blood Count/With Diff Urgent
D-Dimer Urgent
04/21/25 10:01
CT Chest PE Study Urgent
Comment:
Reason For Exam: chest pain, sob, elevated d-dimer
04/21/25 10:25
NT-proBNP Urgent
Troponin I Urgent
04/21/25 12:58
Troponin I Routine
Abnormal Lab Results
04/21/25
08:33
MCH 32.5 H pg
(27.0-31.0)
Absolute Neuts (auto) 8.0 H 10^3/uL
(1.4-6.5)
Absolute Lymphs (auto) 0.4 L 10^3/uL
(1.2-3.4)
Neutrophils % 91.1 H %
(42.2-75.2)
Lymphocytes % 4.6 L %
(20.5-51.1)
D-Dimer 1.86 H ug/mlFEU
(0.00-0.50)
BUN 24 H mg/dl
(7-17)
Glucose 129 H mg/dl
(70-99)
AST 42 H U/L
(14-36)
ALT 41 H U/L
(0-35)
04/21/25 08:33
04/21/25 08:33
Vital Signs
Initial and Last Documented VS:
Initial Vital Signs
Temp Pulse Resp Pulse Ox
98.2 F 67 16 100
04/21/25 08:15 04/21/25 08:15 04/21/25 08:15 04/21/25 08:15
Last Documented Vital Signs
Temp Pulse Resp BP Pulse Ox
98.2 F 59 16 124/104 95
04/21/25 08:15 04/21/25 10:34 04/21/25 09:30 04/21/25 09:28 04/21/25 10:34
MDM/Problems Addressed
Differential Diagnosis Includes:
Patient is an 84-year-old female with past medical history of prior left lung lobectomy in the secondary to benign mass, prior tobacco use, aortic stenosis, atrial fibrillation on Eliquis (reports compliance), known heart murmur, hypertension,
hyperlipidemia, history of PVCs, constipation, IBS, hemorrhoids, anxiety, and history of recently diagnosed lymphoma 3 months ago not currently on chemotherapy currently follows with oncology, here today for evaluation of left-sided chest
tightness/heaviness associated with shortness of breath that began 2 days ago. Overall, patient appears very well. Vitals remarkable for an elevated blood pressure to 124/104. Physical examination described above. A workup was initiated in triage
which was remarkable for an elevated D-dimer to 1.86. BUN elevated at 24 with a normal creatinine of 0.7. Glucose 129. There is mild transaminitis. We will add a troponin and BNP. I have a low suspicion for VTE given anticoagulation
use/medication compliance however given history of cancer and elevated D-dimer we will obtain a CT PE study.
04/21/2025 13:43: BNP slightly elevated at 603 however patient does not appear to be in volume overload and lungs are clear throughout. Troponin negative x 2. CT PE study negative. No findings of pulmonary edema and no pulmonary embolus. Do not
suspect CHF exacerbation or VTE. EKG nonischemic. Case was discussed with ED attending, Dr. Silveira. Patient reassessed at bedside. She notes resolution of the chest tightness. She appears very well overall. She feels her symptoms are likely
secondary to anxiety and feels safe to go home at this time. We will discharge at this time with recommendations to closely follow-up with cardiology within the next 48 hours. Recommend supportive measures and close follow-up. Return precautions
given. All questions answered. Stable for discharge.
*Critical Care Note
Total Time (30-74mins, 75-104mins- exclusive of procedures): Not Applicable
ED Attending Note
-
Portions of this chart may have been created with voice recognition software.� Occasional wrong word or��sound alike� substitutions may have occurred due to the inherent limitations of voice recognition software.
Discharge Plan
Departure
Patient Disposition: Home (Routine Discharge)
Date of Disposition: 04/21/25
Time of Disposition: 13:45
Patient with high blood pressure during this ER visit?: Yes
Condition: Fair
Covid-19: Not Applicable
Discharge Problem:
Acute dyspnea
Instructions: Chest Pain DCA Follow Up
Prescriptions:
No Action
cholecalciferol (vitamin D3) [Vitamin D3] 1,000 UNIT capsule
1,000 unit PO DAILY
multivitamin Tablet
1 tab PO Q48H
atorvastatin 20 mg Tablet
20 mg PO DAILY
alprazolam 0.25 mg Tablet
0.25 mg PO Q6H
diltiazem HCl [Cardizem] 120 mg Tablet
120 mg PO DAILY
biotin 5,000 mcg Tablet, Sublingual
5,000 mcg SUBLINGUAL DAILY
flecainide 100 mg Tablet
100 mg PO BID
cetirizine [Zyrtec] 10 mg Tablet
10 mg PO DAILY PRN (Reason: allergies)
tramadol 50 mg Tablet
100 mg PO Q8H PRN (Reason: pain)
diphenhydramine HCl [Benadryl Allergy] 25 mg Tablet
25 mg PO HS PRN (Reason: allergy/sleep)
simethicone [Gas-X Extra Strength] 125 mg Tablet,Chewable
125 mg PO QID PRN (Reason: indigestion)
ascorbic acid (vitamin C) 1,000 mg Tablet
1,000 mg PO DAILY
amoxicillin 500 mg Tablet
500 mg PO BID
diltiazem HCl 120 mg Tablet Extended Release 24 Hr
240 mg PO HS
Eliquis 2.5 mg Tablet
2.5 mg PO BID
acetaminophen [Tylenol] 325 mg Tablet
650 mg PO DAILYPRN PRN (Reason: pain)
Referrals:
Soren Centeno MD [Active, Cardiology] - Follow up in 2-3 days
UNKNOWN - PT DOES,NOT KNOW [Family Provider]
Activity Restrictions/Additional Instructions:
Please follow-up with your spring bender within 48 hours for further evaluation.
Return to the emergency department for any new, worsening, or concerning symptoms.
Interventions
Interventions:
*Risk Screen - Suicide Last Done: 04/21/25 08:15
*Neglect/Abuse Screening Last Done: 04/21/25 08:15
ED- Cardiac Assessment Last Done: 04/21/25 10:35
Discharge Date and Time
Print Language: [email or web address]
[2025-04-21 11:00] VITALS: BP 127/55
[2025-04-21 11:04] LABS: NT-proBNP 603 pg/ml; Troponin I < 0.012 ng/ml
[2025-04-21 13:34] LABS: Troponin I < 0.012 ng/ml
[2025-04-21 13:54] VITALS: BP 119/55
== END 2025-04-21 14:15 | disposition home or self-care (01) ==
LOC: EMR 08:10
PROVIDERS: Physician Assistant; EMERGENCY PHYSICIAN Emergency Medicine
DX: R06.00 Dyspnea, unspecified (principal); R07.89 Other chest pain; I35.0 Nonrheumatic aortic (valve) stenosis; I48.91 Unspecified atrial fibrillation; R01.1 Cardiac murmur, unspecified; I10 Essential (primary) hypertension; E78.00 Pure hypercholesterolemia, unspecified; K58.9 Irritable bowel syndrome, unspecified; F41.9 Anxiety disorder, unspecified; Z79.01 Long term (current) use of anticoagulants; Z90.2 Acquired absence of lung [part of]; Z85.72 Personal history of non-Hodgkin lymphomas; Z87.891 Personal history of nicotine dependence; Z88.2 Allergy status to sulfonamides; Z88.1 Allergy status to other antibiotic agents; Z91.013 Allergy to seafood
CPT/HCPCS: 99284; 71275; 80053; 83880; 84484; 85025; 85379; 93005; Q9967

== ENCOUNTER → 2025-05-01 12:20 | Outpatient (REF) | payer OTHER, SELFPAY ==
[2025-05-01 13:33] LABS: Hematocrit 36.1 % (37.0-47.0); Hemoglobin 12.1 g/dL (12.0-16.0); Mean Corp Hgb Conc. 33.5 g/dL (33.0-37.0); Mean Corpuscular Hgb 32.8 pg (27.0-31.0); Mean Corpuscular Volume 97.8 fL (81.0-99.0); Mean Platelet Volume 9.7 fL (7.4-10.4); Platelet Count 217 10^3/uL (130-400); Red Blood Cell Count 3.69 10^6/uL (4.20-5.40); Red Cell Dist. Width 13.2 % (11.5-14.5); White Blood Cell Count 24.9 10^3/uL (4.8-10.8)
[2025-05-01 13:51] LABS: ALT (SGPT) 24 U/L (0-35); AST (SGOT) 21 U/L (14-36); Albumin 4.4 g/dl (3.5-5.0); Alkaline Phosphatase 124 U/L (38-126); Blood Urea Nitrogen 20 mg/dl (7-17); Calcium 9.7 mg/dl (8.4-10.2); Carbon Dioxide 29 mmol/L (22-30); Chloride 104 mmol/L (98-107); Glucose 111 mg/dl (70-99); LDH 304 U/L (120-246); Potassium 3.4 mmol/L (3.5-5.1); Sodium 140 mmol/L (135-145); Total Bilirubin 0.5 mg/dl (0.2-1.3); Total Protein 6.8 g/dl (6.3-8.2); eGFR > 60.00
[2025-05-01 19:03] LABS: % Eosinophils 0.1 % (0-6); % Immature Granulocytes 12.3 % (0-0.5); % Lymphocytes 3.7 % (20.5-51.1); % Monocytes 0.9 % (1.7-9.3); Absolute Immature Granulocytes 3.1 10^3/uL (0-0.05); Absolute Lymphocytes 0.9 10^3/uL (1.2-3.4); Absolute Monocytes 0.2 10^3/uL (0.1-0.6); Absolute Neutrophils 20.7 10^3/uL (1.4-6.5); Nucleated Red Blood Cells % 0 %
== END ==
LOC: REG 12:20
PROVIDERS: ATTENDING PHYSICIAN Internal Medicine Hematology & Oncology; FAMILY PHYSICIAN Family Medicine
DX: R23.3 Spontaneous ecchymoses (principal); R79.9 Abnormal finding of blood chemistry, unspecified; D50.9 Iron deficiency anemia, unspecified; D52.8 Other folate deficiency anemias; D68.00 Von Willebrand disease, unspecified; D51.9 Vitamin B12 deficiency anemia, unspecified; C83.30 Diffuse large B-cell lymphoma, unspecified site
CPT/HCPCS: 36415; 80053; 83615; 85025

== ENCOUNTER → 2025-05-08 10:58 | Outpatient (REF) | payer OTHER, SELFPAY ==
[2025-05-08 11:27] LABS: % Basophils 0.8 % (0-2); % Eosinophils 0.3 % (0-6); % Immature Granulocytes 5.6 % (0-0.5); % Lymphocytes 7.6 % (20.5-51.1); % Monocytes 6.4 % (1.7-9.3); % Neutrophils 79.3 % (42.2-75.2); Absolute Basophils 0.1 10^3/uL (0-0.2); Absolute Eosinophils 0.1 10^3/uL (0-0.7); Absolute Immature Granulocytes 0.9 10^3/uL (0-0.05); Absolute Lymphocytes 1.3 10^3/uL (1.2-3.4); Absolute Monocytes 1.1 10^3/uL (0.1-0.6); Absolute Neutrophils 13.2 10^3/uL (1.4-6.5); Hematocrit 35.8 % (37.0-47.0); Hemoglobin 11.8 g/dL (12.0-16.0); Mean Corpuscular Hgb 32.2 pg (27.0-31.0); Mean Corpuscular Volume 97.5 fL (81.0-99.0); Mean Platelet Volume 9.8 fL (7.4-10.4); Nucleated Red Blood Cells % 0 %; Platelet Count 139 10^3/uL (130-400); Red Blood Cell Count 3.67 10^6/uL (4.20-5.40); White Blood Cell Count 16.7 10^3/uL (4.8-10.8)
[2025-05-08 13:29] LABS: ALT (SGPT) 20 U/L (0-35); AST (SGOT) 21 U/L (14-36); Albumin 4.2 g/dl (3.5-5.0); Alkaline Phosphatase 137 U/L (38-126); Blood Urea Nitrogen 13 mg/dl (7-17); Calcium 9.3 mg/dl (8.4-10.2); Carbon Dioxide 27 mmol/L (22-30); Chloride 107 mmol/L (98-107); Glucose 91 mg/dl (70-99); LDH 237 U/L (120-246); Potassium 4.1 mmol/L (3.5-5.1); Sodium 141 mmol/L (135-145); Total Bilirubin 0.3 mg/dl (0.2-1.3); Total Protein 6.5 g/dl (6.3-8.2); eGFR > 60.00
== END ==
LOC: REG 10:58
PROVIDERS: ATTENDING PHYSICIAN Internal Medicine Hematology & Oncology; FAMILY PHYSICIAN Family Medicine
DX: R23.3 Spontaneous ecchymoses (principal); R79.9 Abnormal finding of blood chemistry, unspecified; D50.9 Iron deficiency anemia, unspecified; D52.8 Other folate deficiency anemias; D68.00 Von Willebrand disease, unspecified; D51.9 Vitamin B12 deficiency anemia, unspecified; C83.30 Diffuse large B-cell lymphoma, unspecified site
CPT/HCPCS: 36415; 80053; 83615; 85025

== ENCOUNTER → 2025-05-15 10:54 | Outpatient (REF) | payer OTHER, SELFPAY ==
[2025-05-15 11:48] LABS: Hematocrit 32.7 % (37.0-47.0); Hemoglobin 10.6 g/dL (12.0-16.0); Mean Corp Hgb Conc. 32.4 g/dL (33.0-37.0); Mean Corpuscular Volume 98.8 fL (81.0-99.0); Platelet Count 176 10^3/uL (130-400); Red Cell Dist. Width 13.9 % (11.5-14.5)
[2025-05-15 12:12] LABS: ALT (SGPT) 16 U/L (0-35); AST (SGOT) 18 U/L (14-36); Albumin 4.4 g/dl (3.5-5.0); Alkaline Phosphatase 160 U/L (38-126); Blood Urea Nitrogen 20 mg/dl (7-17); Calcium 9.7 mg/dl (8.4-10.2); Carbon Dioxide 30 mmol/L (22-30); Chloride 103 mmol/L (98-107); Glucose 86 mg/dl (70-99); LDH 320 U/L (120-246); Potassium 3.8 mmol/L (3.5-5.1); Sodium 138 mmol/L (135-145); Total Protein 6.6 g/dl (6.3-8.2); eGFR > 60.00
[2025-05-15 13:07] LABS: Nucleated Red Blood Cells % 0 %
== END ==
LOC: REG 10:54
PROVIDERS: ATTENDING PHYSICIAN Internal Medicine Hematology & Oncology; FAMILY PHYSICIAN Family Medicine
DX: R23.3 Spontaneous ecchymoses (principal); R79.9 Abnormal finding of blood chemistry, unspecified; D50.9 Iron deficiency anemia, unspecified; D52.8 Other folate deficiency anemias; D68.00 Von Willebrand disease, unspecified; D51.9 Vitamin B12 deficiency anemia, unspecified; C83.30 Diffuse large B-cell lymphoma, unspecified site
CPT/HCPCS: 36415; 80053; 83615; 85025

== ENCOUNTER → 2025-05-22 09:27 | Outpatient (REF) | payer OTHER, SELFPAY ==
[2025-05-22 10:17] LABS: Hematocrit 33.3 % (37.0-47.0); Hemoglobin 10.9 g/dL (12.0-16.0); Mean Corp Hgb Conc. 32.7 g/dL (33.0-37.0); Mean Corpuscular Volume 98.2 fL (81.0-99.0); Platelet Count 203 10^3/uL (130-400); Red Cell Dist. Width 14.7 % (11.5-14.5)
[2025-05-22 11:14] LABS: AST (SGOT) 24 U/L (14-36); Albumin 4.4 g/dl (3.5-5.0); Alkaline Phosphatase 183 U/L (38-126); Blood Urea Nitrogen 16 mg/dl (7-17); Calcium 9.6 mg/dl (8.4-10.2); Carbon Dioxide 21 mmol/L (22-30); Chloride 104 mmol/L (98-107); Glucose 132 mg/dl (70-99); Potassium 3.9 mmol/L (3.5-5.1); Sodium 138 mmol/L (135-145); Total Protein 6.5 g/dl (6.3-8.2); eGFR > 60.00
[2025-05-22 11:31] LABS: ALT (SGPT) < 30 U/L (0-35)
[2025-05-22 11:52] LABS: Nucleated Red Blood Cells % 0.2 %
[2025-05-22 12:23] LABS: LDH 370 U/L (120-246)
== END ==
LOC: REG 09:27
PROVIDERS: ATTENDING PHYSICIAN Internal Medicine Hematology & Oncology
DX: R23.3 Spontaneous ecchymoses (principal); R79.9 Abnormal finding of blood chemistry, unspecified; D50.9 Iron deficiency anemia, unspecified; D52.8 Other folate deficiency anemias; D68.00 Von Willebrand disease, unspecified; D51.9 Vitamin B12 deficiency anemia, unspecified; C83.30 Diffuse large B-cell lymphoma, unspecified site
CPT/HCPCS: 36415; 80053; 83615; 85025

== ENCOUNTER → 2025-05-25 14:16 | Outpatient (REF) | payer OTHER, SELFPAY | LOC: RCS 14:16 | PROVIDERS: ATTENDING PHYSICIAN Internal Medicine Hematology & Oncology; FAMILY PHYSICIAN Family Medicine | DX: R23.3 Spontaneous ecchymoses (principal); R79.9 Abnormal finding of blood chemistry, unspecified; D50.9 Iron deficiency anemia, unspecified; D68.00 Von Willebrand disease, unspecified; D51.9 Vitamin B12 deficiency anemia, unspecified; C83.30 Diffuse large B-cell lymphoma, unspecified site | CPT/HCPCS: 93306 ==

== ENCOUNTER → 2025-05-29 11:06 | Outpatient (REF) | payer OTHER, SELFPAY ==
[2025-05-29 12:14] LABS: Hematocrit 29.4 % (37.0-47.0); Hemoglobin 9.6 g/dL (12.0-16.0); Mean Corp Hgb Conc. 32.7 g/dL (33.0-37.0); Mean Corpuscular Volume 99.3 fL (81.0-99.0); Platelet Count 178 10^3/uL (130-400); Red Cell Dist. Width 15.2 % (11.5-14.5)
[2025-05-29 13:04] LABS: Nucleated Red Blood Cells % 0 %
[2025-05-29 13:59] LABS: ALT (SGPT) 17 U/L (0-35); AST (SGOT) 19 U/L (14-36); Albumin 4.2 g/dl (3.5-5.0); Alkaline Phosphatase 199 U/L (38-126); Blood Urea Nitrogen 19 mg/dl (7-17); Calcium 9.0 mg/dl (8.4-10.2); Carbon Dioxide 25 mmol/L (22-30); Chloride 104 mmol/L (98-107); Glucose 52 mg/dl (70-99); LDH 345 U/L (120-246); Potassium 3.5 mmol/L (3.5-5.1); Sodium 137 mmol/L (135-145); Total Protein 6.1 g/dl (6.3-8.2); eGFR > 60.00
== END ==
LOC: REG 11:06
PROVIDERS: ATTENDING PHYSICIAN Internal Medicine Hematology & Oncology; FAMILY PHYSICIAN Family Medicine
DX: R23.3 Spontaneous ecchymoses (principal); R79.9 Abnormal finding of blood chemistry, unspecified; D50.9 Iron deficiency anemia, unspecified; D52.8 Other folate deficiency anemias; D68.00 Von Willebrand disease, unspecified; D51.9 Vitamin B12 deficiency anemia, unspecified; C83.30 Diffuse large B-cell lymphoma, unspecified site
CPT/HCPCS: 36415; 80053; 83615; 85025

== ENCOUNTER → 2025-06-05 11:13 | Outpatient (REF) | payer OTHER, SELFPAY ==
[2025-06-05 11:54] LABS: Hematocrit 34.2 % (37.0-47.0); Hemoglobin 10.9 g/dL (12.0-16.0); Mean Corp Hgb Conc. 31.9 g/dL (33.0-37.0); Mean Corpuscular Volume 100.6 fL (81.0-99.0); Platelet Count 186 10^3/uL (130-400); Red Cell Dist. Width 16.4 % (11.5-14.5)
[2025-06-05 12:12] LABS: ALT (SGPT) 19 U/L (0-35); AST (SGOT) 22 U/L (14-36); Albumin 4.3 g/dl (3.5-5.0); Alkaline Phosphatase 148 U/L (38-126); Blood Urea Nitrogen 16 mg/dl (7-17); Calcium 9.5 mg/dl (8.4-10.2); Carbon Dioxide 28 mmol/L (22-30); Chloride 103 mmol/L (98-107); Glucose 84 mg/dl (70-99); LDH 279 U/L (120-246); Potassium 4.1 mmol/L (3.5-5.1); Sodium 139 mmol/L (135-145); Total Protein 6.6 g/dl (6.3-8.2); eGFR > 60.00
[2025-06-05 12:21] LABS: Nucleated Red Blood Cells % 0.3 %
== END ==
LOC: REG 11:13
PROVIDERS: ATTENDING PHYSICIAN Internal Medicine Hematology & Oncology; FAMILY PHYSICIAN Family Medicine
DX: R23.3 Spontaneous ecchymoses (principal); R79.9 Abnormal finding of blood chemistry, unspecified; D50.9 Iron deficiency anemia, unspecified; D52.8 Other folate deficiency anemias; D68.00 Von Willebrand disease, unspecified; D51.9 Vitamin B12 deficiency anemia, unspecified; C83.30 Diffuse large B-cell lymphoma, unspecified site
CPT/HCPCS: 36415; 80053; 83615; 85025

== ENCOUNTER → 2025-06-08 10:02 | Outpatient (REF) | payer OTHER, SELFPAY ==
[2025-06-08 11:22] LABS: Urine Character Slightly Cloudy (Clear)
[2025-06-08 11:39] LABS: Urine Red Blood Cell 0-2 /HPF (0-2); Urine White Cell 0-2 /HPF (0-5)
== END ==
LOC: REG 10:02
PROVIDERS: ATTENDING PHYSICIAN Internal Medicine Hematology & Oncology; FAMILY PHYSICIAN Family Medicine
DX: R30.0 Dysuria (principal)
CPT/HCPCS: 81003; 81015; 87086

== ENCOUNTER → 2025-06-12 11:17 | Outpatient (REF) | payer OTHER, SELFPAY ==
[2025-06-12 12:47] LABS: Hematocrit 30.0 % (37.0-47.0); Hemoglobin 9.9 g/dL (12.0-16.0); Mean Corp Hgb Conc. 33.0 g/dL (33.0-37.0); Mean Corpuscular Volume 98.7 fL (81.0-99.0); Platelet Count 175 10^3/uL (130-400); Red Cell Dist. Width 16.4 % (11.5-14.5)
[2025-06-12 12:55] LABS: ALT (SGPT) 17 U/L (0-35); AST (SGOT) 17 U/L (14-36); Albumin 4.2 g/dl (3.5-5.0); Alkaline Phosphatase 163 U/L (38-126); Blood Urea Nitrogen 19 mg/dl (7-17); Calcium 9.1 mg/dl (8.4-10.2); Carbon Dioxide 29 mmol/L (22-30); Chloride 103 mmol/L (98-107); Glucose 78 mg/dl (70-99); LDH 289 U/L (120-246); Potassium 3.5 mmol/L (3.5-5.1); Sodium 137 mmol/L (135-145); Total Protein 6.3 g/dl (6.3-8.2); eGFR > 60.00
[2025-06-12 13:33] LABS: Absolute Neutrophils -Man Diff 32.2 10^3/uL (1.4-6.5); Hypersegmented Neutrophil Moderate; Normal RBC Morphology Yes; Platelets Checked Yes; Total Cells Counted 100
== END ==
LOC: REG 11:17
PROVIDERS: ATTENDING PHYSICIAN Internal Medicine Hematology & Oncology
DX: R23.3 Spontaneous ecchymoses (principal); R79.9 Abnormal finding of blood chemistry, unspecified; D50.9 Iron deficiency anemia, unspecified; D52.8 Other folate deficiency anemias; D68.00 Von Willebrand disease, unspecified; D51.9 Vitamin B12 deficiency anemia, unspecified; C83.30 Diffuse large B-cell lymphoma, unspecified site
CPT/HCPCS: 36415; 80053; 83615; 85025

== ENCOUNTER → 2025-06-19 13:18 | Outpatient (REF) | payer OTHER, SELFPAY ==
[2025-06-19 14:08] LABS: Hematocrit 33.0 % (37.0-47.0); Hemoglobin 10.7 g/dL (12.0-16.0); Mean Corp Hgb Conc. 32.4 g/dL (33.0-37.0); Mean Corpuscular Volume 100.6 fL (81.0-99.0); Nucleated Red Blood Cells % 0.4 %; Platelet Count 181 10^3/uL (130-400); Red Cell Dist. Width 18.3 % (11.5-14.5)
[2025-06-19 15:56] LABS: Urine Character Clear (Clear)
[2025-06-19 16:12] LABS: ALT (SGPT) 15 U/L (0-35); AST (SGOT) 20 U/L (14-36); Albumin 4.3 g/dl (3.5-5.0); Alkaline Phosphatase 152 U/L (38-126); Blood Urea Nitrogen 7 mg/dl (7-17); Calcium 9.2 mg/dl (8.4-10.2); Carbon Dioxide 26 mmol/L (22-30); Chloride 105 mmol/L (98-107); Glucose 77 mg/dl (70-99); LDH 248 U/L (120-246); Potassium 3.9 mmol/L (3.5-5.1); Sodium 139 mmol/L (135-145); Total Protein 6.2 g/dl (6.3-8.2); eGFR > 60.00
[2025-06-19 16:16] LABS: Urine Red Blood Cell 0-2 /HPF (0-2); Urine Squamous Cell >30 /LPF (Few)
== END ==
LOC: REG 13:18
PROVIDERS: ATTENDING PHYSICIAN Specialist; FAMILY PHYSICIAN Family Medicine; OTHER PHYSICIAN Internal Medicine Hematology & Oncology
DX: Q62.31 Congenital ureterocele, orthotopic (principal); R35.0 Frequency of micturition; R23.3 Spontaneous ecchymoses; R79.9 Abnormal finding of blood chemistry, unspecified; D50.9 Iron deficiency anemia, unspecified; D52.8 Other folate deficiency anemias; D68.00 Von Willebrand disease, unspecified; D51.9 Vitamin B12 deficiency anemia, unspecified; C83.30 Diffuse large B-cell lymphoma, unspecified site
CPT/HCPCS: 36415; 80053; 81003; 81015; 83615; 85025; 87077; 87086; 87186

== ENCOUNTER → 2025-06-26 12:12 | Outpatient (REF) | payer OTHER, SELFPAY ==
[2025-06-26 13:54] LABS: Hematocrit 28.2 % (37.0-47.0); Hemoglobin 9.2 g/dL (12.0-16.0); Mean Corp Hgb Conc. 32.6 g/dL (33.0-37.0); Mean Corpuscular Volume 101.1 fL (81.0-99.0); Platelet Count 148 10^3/uL (130-400); Red Cell Dist. Width 17.9 % (11.5-14.5)
[2025-06-26 14:07] LABS: Absolute Neutrophils -Man Diff 22.4 10^3/uL (1.4-6.5)
[2025-06-26 14:08] LABS: Basophilic Stippling 1+; Hypersegmented Neutrophil 1+; Hypochromasia Slight; Normal RBC Morphology No; Platelets Checked Yes; Polychromasia 1+; Total Cells Counted 100
[2025-06-26 14:42] LABS: ALT (SGPT) 13 U/L (0-35); AST (SGOT) 16 U/L (14-36); Albumin 4.0 g/dl (3.5-5.0); Alkaline Phosphatase 149 U/L (38-126); Blood Urea Nitrogen 19 mg/dl (7-17); Calcium 9.0 mg/dl (8.4-10.2); Carbon Dioxide 25 mmol/L (22-30); Chloride 105 mmol/L (98-107); Glucose 75 mg/dl (70-99); LDH 237 U/L (120-246); Potassium 3.6 mmol/L (3.5-5.1); Sodium 138 mmol/L (135-145); Total Protein 6.1 g/dl (6.3-8.2); eGFR > 60.00
== END ==
LOC: REG 12:12
PROVIDERS: ATTENDING PHYSICIAN Internal Medicine Hematology & Oncology; FAMILY PHYSICIAN Family Medicine
DX: R23.3 Spontaneous ecchymoses (principal); R79.9 Abnormal finding of blood chemistry, unspecified; D50.9 Iron deficiency anemia, unspecified; D52.8 Other folate deficiency anemias; D68.00 Von Willebrand disease, unspecified; D51.9 Vitamin B12 deficiency anemia, unspecified; C83.30 Diffuse large B-cell lymphoma, unspecified site
CPT/HCPCS: 36415; 80053; 83615; 85025

== ENCOUNTER → 2025-07-03 11:02 | Outpatient (REF) | payer OTHER, SELFPAY ==
[2025-07-03 11:45] LABS: Hematocrit 32.2 % (37.0-47.0); Hemoglobin 10.4 g/dL (12.0-16.0); Mean Corp Hgb Conc. 32.3 g/dL (33.0-37.0); Mean Corpuscular Volume 100.9 fL (81.0-99.0); Platelet Count 178 10^3/uL (130-400); Red Cell Dist. Width 18.6 % (11.5-14.5)
[2025-07-03 12:05] LABS: ALT (SGPT) 14 U/L (0-35); AST (SGOT) 20 U/L (14-36); Albumin 4.1 g/dl (3.5-5.0); Alkaline Phosphatase 162 U/L (38-126); Blood Urea Nitrogen 9 mg/dl (7-17); Calcium 9.4 mg/dl (8.4-10.2); Carbon Dioxide 27 mmol/L (22-30); Chloride 103 mmol/L (98-107); Glucose 86 mg/dl (70-99); LDH 253 U/L (120-246); Potassium 4.1 mmol/L (3.5-5.1); Sodium 138 mmol/L (135-145); Total Protein 6.3 g/dl (6.3-8.2); eGFR > 60.00
[2025-07-03 12:13] LABS: Absolute Neutrophils -Man Diff 19.4 10^3/uL (1.4-6.5)
[2025-07-03 12:14] LABS: Anisocytosis 1+; Hypochromasia 1+; Normal RBC Morphology No; Platelets Checked Yes; Polychromasia 1+
[2025-07-03 12:15] LABS: Ovalocytes 1+; Stomatocytes 1+; Total Cells Counted 100
== END ==
LOC: REG 11:02
PROVIDERS: ATTENDING PHYSICIAN Internal Medicine Hematology & Oncology; FAMILY PHYSICIAN Family Medicine
DX: R23.3 Spontaneous ecchymoses (principal); R79.9 Abnormal finding of blood chemistry, unspecified; D50.9 Iron deficiency anemia, unspecified; D52.8 Other folate deficiency anemias; D68.00 Von Willebrand disease, unspecified; D51.9 Vitamin B12 deficiency anemia, unspecified; C83.30 Diffuse large B-cell lymphoma, unspecified site
CPT/HCPCS: 36415; 80053; 83615; 85025

== ENCOUNTER → 2025-07-06 13:52 | Outpatient (REF) | payer OTHER, SELFPAY ==
[2025-07-06 14:39] LABS: Urine Character Clear (Clear)
[2025-07-06 14:46] LABS: Urine Red Blood Cell 0-2 /HPF (0-2); Urine Squamous Cell 21-25 /LPF (Few)
== END ==
LOC: REG 13:52
PROVIDERS: ATTENDING PHYSICIAN Family Medicine
DX: R35.0 Frequency of micturition (principal)
CPT/HCPCS: 81003; 81015; 87086

== ENCOUNTER → 2025-07-10 14:00 | Outpatient (REF) | payer OTHER, SELFPAY ==
[2025-07-10 16:35] LABS: Hematocrit 28.3 % (37.0-47.0); Hemoglobin 9.1 g/dL (12.0-16.0); Mean Corp Hgb Conc. 32.2 g/dL (33.0-37.0); Mean Corpuscular Volume 101.8 fL (81.0-99.0); Platelet Count 223 10^3/uL (130-400); Red Cell Dist. Width 18.1 % (11.5-14.5)
[2025-07-10 16:37] LABS: Absolute Neutrophils -Man Diff 36.3 10^3/uL (1.4-6.5); Platelets Checked Yes
[2025-07-10 16:38] LABS: Anisocytosis 1+; Hypochromasia 1+; Microcytosis 1+; Normal RBC Morphology No
[2025-07-10 16:39] LABS: Hypersegmented Neutrophil 2+; Total Cells Counted 100
[2025-07-10 17:10] LABS: ALT (SGPT) 16 U/L (0-35); AST (SGOT) 18 U/L (14-36); Albumin 4.1 g/dl (3.5-5.0); Alkaline Phosphatase 190 U/L (38-126); Blood Urea Nitrogen 20 mg/dl (7-17); Calcium 9.1 mg/dl (8.4-10.2); Carbon Dioxide 28 mmol/L (22-30); Chloride 103 mmol/L (98-107); Glucose 52 mg/dl (70-99); LDH 296 U/L (120-246); Potassium 3.2 mmol/L (3.5-5.1); Sodium 138 mmol/L (135-145); Total Protein 6.2 g/dl (6.3-8.2); eGFR > 60.00
== END ==
LOC: REG 14:00
PROVIDERS: ATTENDING PHYSICIAN Internal Medicine Hematology & Oncology; FAMILY PHYSICIAN Family Medicine
DX: D50.9 Iron deficiency anemia, unspecified (principal); R79.9 Abnormal finding of blood chemistry, unspecified; R23.3 Spontaneous ecchymoses; D52.8 Other folate deficiency anemias; D68.00 Von Willebrand disease, unspecified; D51.9 Vitamin B12 deficiency anemia, unspecified; C83.30 Diffuse large B-cell lymphoma, unspecified site
CPT/HCPCS: 36415; 80053; 83615; 85025

== ENCOUNTER → 2025-07-17 16:15 | Outpatient (REF) | payer OTHER, SELFPAY ==
[2025-07-17 17:21] LABS: Hematocrit 33.8 % (37.0-47.0); Hemoglobin 11.1 g/dL (12.0-16.0); Mean Corp Hgb Conc. 32.8 g/dL (33.0-37.0); Mean Corpuscular Volume 98.8 fL (81.0-99.0); Platelet Count 200 10^3/uL (130-400); Red Cell Dist. Width 17.9 % (11.5-14.5)
[2025-07-17 17:22] LABS: ALT (SGPT) 19 U/L (0-35); AST (SGOT) 22 U/L (14-36); Albumin 4.4 g/dl (3.5-5.0); Alkaline Phosphatase 162 U/L (38-126); Blood Urea Nitrogen 13 mg/dl (7-17); Calcium 9.6 mg/dl (8.4-10.2); Carbon Dioxide 25 mmol/L (22-30); Chloride 98 mmol/L (98-107); Glucose 160 mg/dl (70-99); LDH 237 U/L (120-246); Potassium 3.6 mmol/L (3.5-5.1); Sodium 135 mmol/L (135-145); Total Protein 6.7 g/dl (6.3-8.2); eGFR > 60.00
[2025-07-17 18:49] LABS: Nucleated Red Blood Cells % 0 %
== END ==
LOC: REG 16:15
PROVIDERS: ATTENDING PHYSICIAN Internal Medicine Hematology & Oncology
DX: R23.3 Spontaneous ecchymoses (principal); R79.9 Abnormal finding of blood chemistry, unspecified; D50.9 Iron deficiency anemia, unspecified; D52.8 Other folate deficiency anemias; D68.00 Von Willebrand disease, unspecified; D51.9 Vitamin B12 deficiency anemia, unspecified; C83.30 Diffuse large B-cell lymphoma, unspecified site
CPT/HCPCS: 36415; 80053; 83615; 85025

== ENCOUNTER → 2025-07-19 11:14 | Outpatient (REF) | payer OTHER, SELFPAY | LOC: RAD 11:14 | PROVIDERS: ATTENDING PHYSICIAN Nurse Practitioner Primary Care | DX: R23.3 Spontaneous ecchymoses (principal); R79.9 Abnormal finding of blood chemistry, unspecified; D50.9 Iron deficiency anemia, unspecified; D52.8 Other folate deficiency anemias; D68.00 Von Willebrand disease, unspecified; D51.9 Vitamin B12 deficiency anemia, unspecified; C83.30 Diffuse large B-cell lymphoma, unspecified site | CPT/HCPCS: 71046 ==

== ENCOUNTER → 2025-07-31 11:06 | Outpatient (REF) | payer OTHER, SELFPAY ==
[2025-07-31 11:54] LABS: Hematocrit 32.5 % (37.0-47.0); Hemoglobin 10.3 g/dL (12.0-16.0); Mean Corp Hgb Conc. 31.7 g/dL (33.0-37.0); Mean Corpuscular Volume 101.6 fL (81.0-99.0); Nucleated Red Blood Cells % 0 %; Platelet Count 363 10^3/uL (130-400); Red Cell Dist. Width 15.7 % (11.5-14.5)
[2025-07-31 12:24] LABS: ALT (SGPT) 47 U/L (0-35); AST (SGOT) 40 U/L (14-36); Albumin 4.0 g/dl (3.5-5.0); Alkaline Phosphatase 119 U/L (38-126); Blood Urea Nitrogen 9 mg/dl (7-17); Calcium 9.7 mg/dl (8.4-10.2); Carbon Dioxide 26 mmol/L (22-30); Chloride 105 mmol/L (98-107); Glucose 108 mg/dl (70-99); LDH 216 U/L (120-246); Potassium 3.7 mmol/L (3.5-5.1); Sodium 140 mmol/L (135-145); Total Protein 6.4 g/dl (6.3-8.2); eGFR > 60.00
== END ==
LOC: REG 11:06
PROVIDERS: ATTENDING PHYSICIAN Internal Medicine Hematology & Oncology; FAMILY PHYSICIAN Family Medicine
DX: R23.3 Spontaneous ecchymoses (principal); R79.9 Abnormal finding of blood chemistry, unspecified; D50.9 Iron deficiency anemia, unspecified; D52.8 Other folate deficiency anemias; D68.00 Von Willebrand disease, unspecified; D51.9 Vitamin B12 deficiency anemia, unspecified; C83.30 Diffuse large B-cell lymphoma, unspecified site
CPT/HCPCS: 36415; 80053; 83615; 85025

== ENCOUNTER → 2025-08-01 14:55 | Outpatient (REF) | payer OTHER, SELFPAY | LOC: HWRCS 14:55 | PROVIDERS: ATTENDING PHYSICIAN Nurse Practitioner Adult Health; FAMILY PHYSICIAN Family Medicine | DX: R23.3 Spontaneous ecchymoses (principal); R79.9 Abnormal finding of blood chemistry, unspecified; D50.9 Iron deficiency anemia, unspecified; D52.8 Other folate deficiency anemias; D68.00 Von Willebrand disease, unspecified; D51.9 Vitamin B12 deficiency anemia, unspecified; C83.30 Diffuse large B-cell lymphoma, unspecified site | CPT/HCPCS: 93306 ==

== ENCOUNTER → 2025-08-07 12:16 | Outpatient (REF) | payer OTHER, SELFPAY ==
[2025-08-07 13:40] LABS: Hematocrit 29.5 % (37.0-47.0); Hemoglobin 9.3 g/dL (12.0-16.0); Mean Corp Hgb Conc. 31.5 g/dL (33.0-37.0); Mean Corpuscular Volume 103.1 fL (81.0-99.0); Platelet Count 130 10^3/uL (130-400); Red Cell Dist. Width 14.6 % (11.5-14.5)
[2025-08-07 14:00] LABS: ALT (SGPT) 29 U/L (0-35); AST (SGOT) 20 U/L (14-36); Albumin 3.8 g/dl (3.5-5.0); Alkaline Phosphatase 114 U/L (38-126); Blood Urea Nitrogen 16 mg/dl (7-17); Calcium 8.7 mg/dl (8.4-10.2); Carbon Dioxide 28 mmol/L (22-30); Chloride 102 mmol/L (98-107); Glucose 86 mg/dl (70-99); LDH 189 U/L (120-246); Potassium 3.8 mmol/L (3.5-5.1); Sodium 135 mmol/L (135-145); Total Protein 5.9 g/dl (6.3-8.2); eGFR > 60.00
[2025-08-07 14:26] LABS: Absolute Neutrophils -Man Diff 8.0 10^3/uL (1.4-6.5); Anisocytosis Slight; Normal RBC Morphology No; Platelets Checked Yes
[2025-08-07 14:27] LABS: Hypochromasia 1+; Ovalocytes Slight; Polychromasia Slight; Tear Drop Red Blood Cells Slight; Total Cells Counted 100
== END ==
LOC: REG 12:16
PROVIDERS: ATTENDING PHYSICIAN Internal Medicine Hematology & Oncology; FAMILY PHYSICIAN Family Medicine
DX: R23.3 Spontaneous ecchymoses (principal); R79.9 Abnormal finding of blood chemistry, unspecified; D50.9 Iron deficiency anemia, unspecified; D52.8 Other folate deficiency anemias; D68.00 Von Willebrand disease, unspecified; D51.9 Vitamin B12 deficiency anemia, unspecified; C83.30 Diffuse large B-cell lymphoma, unspecified site
CPT/HCPCS: 36415; 80053; 83615; 85025

== ENCOUNTER → 2025-08-10 09:36 | Outpatient (REF) | payer OTHER, SELFPAY ==
[2025-08-10 09:33] LABS: Glucose 92 mg/dl (70-99)
== END ==
LOC: PET 09:36
PROVIDERS: ATTENDING PHYSICIAN Nurse Practitioner Adult Health; REFERRING PHYSICIAN Internal Medicine Hematology & Oncology
DX: C83.30 Diffuse large B-cell lymphoma, unspecified site (principal); R79.9 Abnormal finding of blood chemistry, unspecified; D50.9 Iron deficiency anemia, unspecified; D52.8 Other folate deficiency anemias; D68.00 Von Willebrand disease, unspecified; D51.9 Vitamin B12 deficiency anemia, unspecified
CPT/HCPCS: 36415; 82947

== ENCOUNTER → 2025-08-14 12:15 | Outpatient (REF) | payer OTHER, SELFPAY ==
[2025-08-14 12:55] LABS: Hematocrit 32.4 % (37.0-47.0); Hemoglobin 10.0 g/dL (12.0-16.0); Mean Corp Hgb Conc. 30.9 g/dL (33.0-37.0); Mean Corpuscular Volume 104.9 fL (81.0-99.0); Nucleated Red Blood Cells % 0 %; Platelet Count 182 10^3/uL (130-400); Red Cell Dist. Width 15.1 % (11.5-14.5)
[2025-08-14 13:32] LABS: ALT (SGPT) 23 U/L (0-35); AST (SGOT) 21 U/L (14-36); Albumin 4.2 g/dl (3.5-5.0); Alkaline Phosphatase 126 U/L (38-126); Blood Urea Nitrogen 9 mg/dl (7-17); Calcium 9.1 mg/dl (8.4-10.2); Carbon Dioxide 27 mmol/L (22-30); Chloride 103 mmol/L (98-107); Glucose 102 mg/dl (70-99); LDH 224 U/L (120-246); Potassium 3.9 mmol/L (3.5-5.1); Sodium 139 mmol/L (135-145); Total Protein 6.5 g/dl (6.3-8.2); eGFR > 60.00
== END ==
LOC: REG 12:15
PROVIDERS: ATTENDING PHYSICIAN Internal Medicine Hematology & Oncology; FAMILY PHYSICIAN Family Medicine
DX: R23.3 Spontaneous ecchymoses (principal); R79.9 Abnormal finding of blood chemistry, unspecified; D50.9 Iron deficiency anemia, unspecified; D52.8 Other folate deficiency anemias; D68.00 Von Willebrand disease, unspecified; D51.9 Vitamin B12 deficiency anemia, unspecified; C83.30 Diffuse large B-cell lymphoma, unspecified site
CPT/HCPCS: 36415; 80053; 83615; 85025

== ENCOUNTER 2025-08-21 08:26 | Emergency (ER) | payer OTHER, SELFPAY ==
[2025-08-21 08:29] VITALS: BP 139/60
--- NOTE | 2025-08-21 08:45 | ED.GENMED ---
History of Present Illness
General
Chief Complaint: Bowel Problem
Time Seen by Provider: 08/21/25 08:34
History of Present Illness
History of Present Illness:
84-year-old female with history of lymphoma currently in remission presents to the emergency department for evaluation of constipation. Unable to pass stool for the past 3 to 4 days despite laxatives and fiber supplements. Reports formed stool for
past few days before her symptoms began. Having rectal pressure. No rectal bleeding.
Past History
Past History
ED Past Medical History: Arrthythmia (Atrial fib, followed by Dr. Centeno, had echo yesterday 'ok'), HTN, Hypercholesterolemia, Valvular disease, Psychiatric (Aniety) and Other (IBS,Hemorrhoids)
ED Past Surgical History: Appendectomy, Gynecological (Tubal, Hysterectomy) and Other (Breast lumpectomy, Lung surgery, Upper eye lid surgery)
Social History
Tobacco: Non-smoker
Alcohol: Daily (Wine 1 glass)
Drug: None
Personal:
Living: alone
Employment: Retired
Family History
Family History: Other (Noncontributory)
Review of Systems
Review of Systems
Allergies reviewed?: Yes
All Other Systems: ROS reviewed and negative except as documented in HPI and ROS
Phy Exam
Physical Exam
Physical Exam:
GEN: Well appearing, NAD, WDWN
HEENT: Oral mucosa moist, no scleral icterus
Cardiac: Regular rate
Lung: No respiratory distress, no tachypnea
Rectal: Firm stool in the rectal vault
MSK: No gross deformity or injuries
Skin: Good color, no pallor or jaundice, no rashes
Neuro: AO x3, moves all extremities freely
Psych: Calm, cooperative
Course
Orders/Labs/Results
Orders:
Orders
08/21/25 08:44
Enema- Treatment ONCE
Type: Milk of Molasses
08/21/25 09:58
Oxycodone [Roxicodone] 5 mg PO NOW STA
08/21/25 11:14
Magnesium Citrate [Citroma] 300 ml PO ONCE ONE
Vital Signs
Initial and Last Documented VS:
Initial Vital Signs
Temp Pulse Resp BP Pulse Ox
97.9 F 78 16 139/60 98
08/21/25 08:29 08/21/25 08:29 08/21/25 08:29 08/21/25 08:29 08/21/25 08:29
Last Documented Vital Signs
Temp Pulse Resp BP Pulse Ox
97.9 F 78 16 139/60 98
08/21/25 08:29 08/21/25 08:29 08/21/25 08:29 08/21/25 08:29 08/21/25 08:48
MDM/Problems Addressed
MDM/Problems Addressed:
Patient required manual disimpaction as well as enema x 2 with good improvement. Discussed appropriate bowel regimen
*Pulse Oximetry
SaO2: 98
Oxygen Mode of Delivery: Room air
Patient hypoxic: no
*Critical Care Note
Total Time (30-74mins, 75-104mins- exclusive of procedures): Not Applicable
ED Attending Note
-
Portions of this chart may have been created with voice recognition software.� Occasional wrong word or��sound alike� substitutions may have occurred due to the inherent limitations of voice recognition software.
Discharge Plan
Departure
Patient Disposition: Home (Routine Discharge)
Date of Disposition: 08/21/25
Time of Disposition: 11:13
Patient with high blood pressure during this ER visit?: No
Discharge Problem:
Fecal impaction
Instructions: Constipation, Adult (DC)
Prescriptions:
No Action
cholecalciferol (vitamin D3) [Vitamin D3] 1,000 UNIT capsule
1,000 unit PO DAILY
multivitamin Tablet
1 tab PO Q48H
atorvastatin 20 mg Tablet
20 mg PO DAILY
alprazolam 0.25 mg Tablet
0.25 mg PO Q6H
diltiazem HCl [Cardizem] 120 mg Tablet
120 mg PO DAILY
biotin 5,000 mcg Tablet, Sublingual
5,000 mcg SUBLINGUAL DAILY
flecainide 100 mg Tablet
100 mg PO BID
cetirizine [Zyrtec] 10 mg Tablet
10 mg PO DAILY PRN (Reason: allergies)
tramadol 50 mg Tablet
100 mg PO Q8H PRN (Reason: pain)
diphenhydramine HCl [Benadryl Allergy] 25 mg Tablet
25 mg PO HS PRN (Reason: allergy/sleep)
simethicone [Gas-X Extra Strength] 125 mg Tablet,Chewable
125 mg PO QID PRN (Reason: indigestion)
ascorbic acid (vitamin C) 1,000 mg Tablet
1,000 mg PO DAILY
amoxicillin 500 mg Tablet
500 mg PO BID
diltiazem HCl 120 mg Tablet Extended Release 24 Hr
240 mg PO HS
Eliquis 2.5 mg Tablet
2.5 mg PO BID
acetaminophen [Tylenol] 325 mg Tablet
650 mg PO DAILYPRN PRN (Reason: pain)
Referrals:
Amy Hunt DO [Family Provider, Family Practice]
Interventions
Interventions:
*Risk Screen - Suicide Last Done: 08/21/25 08:29
*General Assessment Last Done: 08/21/25 08:29
*Neglect/Abuse Screening Last Done: 08/21/25 08:29
*ED- Fall Risk Assessment Last Done: 08/21/25 08:29
*ED COVID-19 Vaccine History Last Done: 08/21/25 08:34
*ED Influenza Vaccine History Last Done: 08/21/25 08:35
*Nursing Disposition Last Done: 08/21/25 11:50
CR-Ddebmz-Qehoebrvcv Assessment Last Done: 08/21/25 09:02
Discharge Date and Time
Discharge Date/Time: 08/21/25 11:51
Print Language: VIETNAM[place]
[2025-08-21] MEDS: ROXICODONE 5 MG PO (10:05)
[2025-08-21] MEDS: CITROMA 300 ML PO (11:18)
== END 2025-08-21 11:51 | disposition home or self-care (01) ==
LOC: EMR 08:26
PROVIDERS: EMERGENCY PHYSICIAN Emergency Medicine; FAMILY PHYSICIAN Family Medicine
DX: K56.41 Fecal impaction (principal); I48.91 Unspecified atrial fibrillation; I10 Essential (primary) hypertension; E78.00 Pure hypercholesterolemia, unspecified; F41.9 Anxiety disorder, unspecified; K58.9 Irritable bowel syndrome, unspecified; Z79.01 Long term (current) use of anticoagulants; Z87.19 Personal history of other diseases of the digestive system; Z85.72 Personal history of non-Hodgkin lymphomas
CPT/HCPCS: 99283

== ENCOUNTER → 2025-08-28 12:06 | Outpatient (REF) | payer OTHER, SELFPAY ==
[2025-08-28 13:03] LABS: Hematocrit 32.5 % (37.0-47.0); Hemoglobin 10.3 g/dL (12.0-16.0); Mean Corp Hgb Conc. 31.7 g/dL (33.0-37.0); Mean Corpuscular Volume 102.8 fL (81.0-99.0); Nucleated Red Blood Cells % 0.1 %; Platelet Count 179 10^3/uL (130-400); Red Cell Dist. Width 14.9 % (11.5-14.5)
[2025-08-28 13:29] LABS: ALT (SGPT) 17 U/L (0-35); AST (SGOT) 21 U/L (14-36); Albumin 4.0 g/dl (3.5-5.0); Alkaline Phosphatase 139 U/L (38-126); Blood Urea Nitrogen 8 mg/dl (7-17); Calcium 9.0 mg/dl (8.4-10.2); Carbon Dioxide 26 mmol/L (22-30); Chloride 103 mmol/L (98-107); Glucose 81 mg/dl (70-99); LDH 333 U/L (120-246); Potassium 4.3 mmol/L (3.5-5.1); Sodium 136 mmol/L (135-145); Total Protein 6.2 g/dl (6.3-8.2); eGFR > 60.00
== END ==
LOC: REG 12:06
PROVIDERS: ATTENDING PHYSICIAN Internal Medicine Hematology & Oncology; FAMILY PHYSICIAN Family Medicine
DX: R23.3 Spontaneous ecchymoses (principal); R79.9 Abnormal finding of blood chemistry, unspecified; D50.9 Iron deficiency anemia, unspecified; D52.8 Other folate deficiency anemias; D68.00 Von Willebrand disease, unspecified; D51.9 Vitamin B12 deficiency anemia, unspecified; C83.30 Diffuse large B-cell lymphoma, unspecified site
CPT/HCPCS: 36415; 80053; 83615; 85025

== ENCOUNTER → 2025-09-04 10:50 | Outpatient (REF) | payer OTHER, SELFPAY ==
[2025-09-04 11:52] LABS: Hematocrit 29.6 % (37.0-47.0); Hemoglobin 9.0 g/dL (12.0-16.0); Mean Corp Hgb Conc. 30.4 g/dL (33.0-37.0); Mean Corpuscular Volume 105.3 fL (81.0-99.0); Red Cell Dist. Width 15.2 % (11.5-14.5)
[2025-09-04 12:02] LABS: ALT (SGPT) 14 U/L (0-35); AST (SGOT) 21 U/L (14-36); Albumin 4.1 g/dl (3.5-5.0); Alkaline Phosphatase 131 U/L (38-126); Blood Urea Nitrogen 18 mg/dl (7-17); Calcium 9.2 mg/dl (8.4-10.2); Carbon Dioxide 27 mmol/L (22-30); Chloride 104 mmol/L (98-107); Glucose 79 mg/dl (70-99); LDH 349 U/L (120-246); Potassium 3.7 mmol/L (3.5-5.1); Sodium 134 mmol/L (135-145); Total Protein 6.3 g/dl (6.3-8.2); eGFR > 60.00
[2025-09-04 12:57] LABS: Platelet Count 137 10^3/uL (130-400)
[2025-09-04 12:58] LABS: Absolute Neutrophils -Man Diff 10.4 10^3/uL (1.4-6.5); Normal RBC Morphology Yes; Platelets Checked Yes; Total Cells Counted 100
== END ==
LOC: REG 10:50
PROVIDERS: ATTENDING PHYSICIAN Internal Medicine Hematology & Oncology; FAMILY PHYSICIAN Family Medicine
DX: R23.3 Spontaneous ecchymoses (principal); R79.9 Abnormal finding of blood chemistry, unspecified; D50.9 Iron deficiency anemia, unspecified; D52.8 Other folate deficiency anemias; D68.00 Von Willebrand disease, unspecified; D51.9 Vitamin B12 deficiency anemia, unspecified; C83.30 Diffuse large B-cell lymphoma, unspecified site
CPT/HCPCS: 36415; 80053; 83615; 85025

== ENCOUNTER → 2025-09-11 11:57 | Outpatient (REF) | payer OTHER, SELFPAY ==
[2025-09-11 13:07] LABS: Hematocrit 32.6 % (37.0-47.0); Hemoglobin 9.9 g/dL (12.0-16.0); Mean Corp Hgb Conc. 30.4 g/dL (33.0-37.0); Mean Corpuscular Volume 105.8 fL (81.0-99.0); Platelet Count 171 10^3/uL (130-400); Red Cell Dist. Width 16.2 % (11.5-14.5)
[2025-09-11 13:38] LABS: ALT (SGPT) 16 U/L (0-35); AST (SGOT) 27 U/L (14-36); Albumin 4.2 g/dl (3.5-5.0); Alkaline Phosphatase 148 U/L (38-126); Blood Urea Nitrogen 8 mg/dl (7-17); Calcium 9.1 mg/dl (8.4-10.2); Carbon Dioxide 25 mmol/L (22-30); Chloride 102 mmol/L (98-107); Glucose 82 mg/dl (70-99); LDH 433 U/L (120-246); Potassium 3.9 mmol/L (3.5-5.1); Sodium 135 mmol/L (135-145); Total Protein 6.6 g/dl (6.3-8.2); eGFR > 60.00
[2025-09-11 13:40] LABS: Nucleated Red Blood Cells % 0 %
== END ==
LOC: REG 11:57
PROVIDERS: ATTENDING PHYSICIAN Internal Medicine Hematology & Oncology; FAMILY PHYSICIAN Family Medicine
DX: R23.3 Spontaneous ecchymoses (principal); R79.9 Abnormal finding of blood chemistry, unspecified; D50.9 Iron deficiency anemia, unspecified; D52.8 Other folate deficiency anemias; D68.00 Von Willebrand disease, unspecified; D51.9 Vitamin B12 deficiency anemia, unspecified; C83.30 Diffuse large B-cell lymphoma, unspecified site
CPT/HCPCS: 36415; 80053; 83615; 85025

== ENCOUNTER → 2025-09-18 11:36 | Outpatient (REF) | payer OTHER, SELFPAY ==
[2025-09-18 13:52] LABS: Hematocrit 31.0 % (37.0-47.0); Hemoglobin 9.6 g/dL (12.0-16.0); Mean Corp Hgb Conc. 31.0 g/dL (33.0-37.0); Mean Corpuscular Volume 104.4 fL (81.0-99.0); Platelet Count 192 10^3/uL (130-400); Red Cell Dist. Width 16.2 % (11.5-14.5)
[2025-09-18 14:02] LABS: ALT (SGPT) 17 U/L (0-35); AST (SGOT) 23 U/L (14-36); Albumin 4.2 g/dl (3.5-5.0); Alkaline Phosphatase 115 U/L (38-126); Blood Urea Nitrogen 18 mg/dl (7-17); Calcium 9.2 mg/dl (8.4-10.2); Carbon Dioxide 26 mmol/L (22-30); Chloride 101 mmol/L (98-107); Glucose 47 mg/dl (70-99); LDH 317 U/L (120-246); Potassium 3.2 mmol/L (3.5-5.1); Sodium 135 mmol/L (135-145); Total Protein 6.3 g/dl (6.3-8.2); eGFR > 60.00
[2025-09-18 14:50] LABS: Absolute Neutrophils -Man Diff 41.9 10^3/uL (1.4-6.5)
[2025-09-18 14:51] LABS: Platelets Checked Yes
[2025-09-18 14:52] LABS: Acanthocytes 1+; Hypersegmented Neutrophil 2+; Macrocytosis 1+; Normal RBC Morphology No; Total Cells Counted 100; Toxic Granulation 1+
== END ==
LOC: REG 11:36
PROVIDERS: ATTENDING PHYSICIAN Internal Medicine Hematology & Oncology; FAMILY PHYSICIAN Family Medicine
DX: R23.3 Spontaneous ecchymoses (principal); R79.9 Abnormal finding of blood chemistry, unspecified; D50.9 Iron deficiency anemia, unspecified; D52.8 Other folate deficiency anemias; D68.00 Von Willebrand disease, unspecified; D51.9 Vitamin B12 deficiency anemia, unspecified; C83.30 Diffuse large B-cell lymphoma, unspecified site
CPT/HCPCS: 36415; 80053; 83615; 85025

== ENCOUNTER → 2025-09-25 11:49 | Outpatient (REF) | payer OTHER, SELFPAY ==
[2025-09-25 13:26] LABS: Hematocrit 32.5 % (37.0-47.0); Hemoglobin 9.8 g/dL (12.0-16.0); Mean Corp Hgb Conc. 30.2 g/dL (33.0-37.0); Mean Corpuscular Volume 105.9 fL (81.0-99.0); Platelet Count 133 10^3/uL (130-400); Red Cell Dist. Width 18.1 % (11.5-14.5)
[2025-09-25 13:53] LABS: Nucleated Red Blood Cells % 0.3 %
[2025-09-25 14:08] LABS: ALT (SGPT) 18 U/L (0-35); AST (SGOT) 31 U/L (14-36); Albumin 4.4 g/dl (3.5-5.0); Alkaline Phosphatase 145 U/L (38-126); Blood Urea Nitrogen 11 mg/dl (7-17); Calcium 8.9 mg/dl (8.4-10.2); Carbon Dioxide 26 mmol/L (22-30); Chloride 103 mmol/L (98-107); Glucose 68 mg/dl (70-99); LDH 504 U/L (120-246); Potassium 4.1 mmol/L (3.5-5.1); Sodium 135 mmol/L (135-145); Total Protein 6.7 g/dl (6.3-8.2); eGFR > 60.00
== END ==
LOC: REG 11:49
PROVIDERS: ATTENDING PHYSICIAN Internal Medicine Hematology & Oncology; FAMILY PHYSICIAN Family Medicine
DX: R23.3 Spontaneous ecchymoses (principal); R79.9 Abnormal finding of blood chemistry, unspecified; D50.9 Iron deficiency anemia, unspecified; D52.8 Other folate deficiency anemias; D68.00 Von Willebrand disease, unspecified; D51.9 Vitamin B12 deficiency anemia, unspecified; C83.30 Diffuse large B-cell lymphoma, unspecified site
CPT/HCPCS: 36415; 80053; 83615; 85025

== ENCOUNTER → 2025-10-02 12:18 | Outpatient (REF) | payer OTHER, SELFPAY ==
[2025-10-02 13:00] LABS: Hematocrit 31.1 % (37.0-47.0); Hemoglobin 9.9 g/dL (12.0-16.0); Mean Corp Hgb Conc. 31.8 g/dL (33.0-37.0); Mean Corpuscular Volume 99.4 fL (81.0-99.0); Platelet Count 231 10^3/uL (130-400); Red Cell Dist. Width 16.9 % (11.5-14.5)
[2025-10-02 13:26] LABS: Nucleated Red Blood Cells % 0 %
[2025-10-02 13:53] LABS: ALT (SGPT) 17 U/L (0-35); AST (SGOT) 18 U/L (14-36); Albumin 4.5 g/dl (3.5-5.0); Alkaline Phosphatase 108 U/L (38-126); Blood Urea Nitrogen 23 mg/dl (7-17); Calcium 9.3 mg/dl (8.4-10.2); Carbon Dioxide 25 mmol/L (22-30); Chloride 101 mmol/L (98-107); Glucose 96 mg/dl (70-99); LDH 200 U/L (120-246); Potassium 3.9 mmol/L (3.5-5.1); Sodium 133 mmol/L (135-145); Total Protein 6.8 g/dl (6.3-8.2); eGFR > 60.00
== END ==
LOC: REG 12:18
PROVIDERS: ATTENDING PHYSICIAN Internal Medicine Hematology & Oncology; FAMILY PHYSICIAN Family Medicine
DX: R23.3 Spontaneous ecchymoses (principal); R79.9 Abnormal finding of blood chemistry, unspecified; D50.9 Iron deficiency anemia, unspecified; D52.8 Other folate deficiency anemias; D68.00 Von Willebrand disease, unspecified; D51.9 Vitamin B12 deficiency anemia, unspecified; C83.30 Diffuse large B-cell lymphoma, unspecified site
CPT/HCPCS: 36415; 80053; 83615; 85025

== ENCOUNTER → 2025-10-09 13:32 | Outpatient (REF) | payer OTHER, SELFPAY ==
[2025-10-09 14:36] LABS: Hematocrit 32.4 % (37.0-47.0); Hemoglobin 9.9 g/dL (12.0-16.0); Mean Corp Hgb Conc. 30.6 g/dL (33.0-37.0); Mean Corpuscular Volume 108.0 fL (81.0-99.0); Platelet Count 126 10^3/uL (130-400); Red Cell Dist. Width 18.4 % (11.5-14.5)
[2025-10-09 14:50] LABS: Nucleated Red Blood Cells % 0.1 %
[2025-10-09 15:31] LABS: ALT (SGPT) 18 U/L (0-35); AST (SGOT) 26 U/L (14-36); Albumin 4.2 g/dl (3.5-5.0); Alkaline Phosphatase 123 U/L (38-126); Blood Urea Nitrogen 8 mg/dl (7-17); Calcium 9.2 mg/dl (8.4-10.2); Carbon Dioxide 28 mmol/L (22-30); Chloride 105 mmol/L (98-107); Glucose 127 mg/dl (70-99); LDH 410 U/L (120-246); Potassium 3.5 mmol/L (3.5-5.1); Sodium 140 mmol/L (135-145); Total Protein 6.3 g/dl (6.3-8.2); eGFR > 60.00
== END ==
LOC: REG 13:32
PROVIDERS: ATTENDING PHYSICIAN Internal Medicine Hematology & Oncology; FAMILY PHYSICIAN Family Medicine
DX: R23.3 Spontaneous ecchymoses (principal); R79.9 Abnormal finding of blood chemistry, unspecified; D50.9 Iron deficiency anemia, unspecified; D52.8 Other folate deficiency anemias; D68.00 Von Willebrand disease, unspecified; D51.9 Vitamin B12 deficiency anemia, unspecified; C83.30 Diffuse large B-cell lymphoma, unspecified site
CPT/HCPCS: 36415; 80053; 83615; 85025

== ENCOUNTER → 2025-10-17 11:27 | Outpatient (REF) | payer OTHER, SELFPAY ==
[2025-10-17 12:37] LABS: Hematocrit 28.4 % (37.0-47.0); Hemoglobin 8.8 g/dL (12.0-16.0); Mean Corp Hgb Conc. 31.0 g/dL (33.0-37.0); Mean Corpuscular Volume 104.0 fL (81.0-99.0); Platelet Count 138 10^3/uL (130-400); Red Cell Dist. Width 17.4 % (11.5-14.5)
[2025-10-17 13:05] LABS: Absolute Neutrophils -Man Diff 27.3 10^3/uL (1.4-6.5); Platelets Checked Yes
[2025-10-17 13:06] LABS: Anisocytosis 1+; Hypersegmented Neutrophil 1+; Hypochromasia 1+; Normal RBC Morphology No; Ovalocytes 1+; Polychromasia 1+; Stomatocytes 1+; Total Cells Counted 100
[2025-10-17 13:08] LABS: ALT (SGPT) 15 U/L (0-35); AST (SGOT) 18 U/L (14-36); Albumin 4.2 g/dl (3.5-5.0); Alkaline Phosphatase 152 U/L (38-126); Blood Urea Nitrogen 20 mg/dl (7-17); Calcium 9.2 mg/dl (8.4-10.2); Carbon Dioxide 28 mmol/L (22-30); Chloride 103 mmol/L (98-107); Glucose 65 mg/dl (70-99); LDH 253 U/L (120-246); Potassium 3.5 mmol/L (3.5-5.1); Sodium 136 mmol/L (135-145); Total Protein 6.3 g/dl (6.3-8.2); eGFR > 60.00
== END ==
LOC: REG 11:27
PROVIDERS: ATTENDING PHYSICIAN Internal Medicine Hematology & Oncology
DX: R23.3 Spontaneous ecchymoses (principal); R79.9 Abnormal finding of blood chemistry, unspecified; D50.9 Iron deficiency anemia, unspecified; D52.8 Other folate deficiency anemias; D68.00 Von Willebrand disease, unspecified; D51.9 Vitamin B12 deficiency anemia, unspecified; C83.30 Diffuse large B-cell lymphoma, unspecified site
CPT/HCPCS: 36415; 80053; 83615; 85025

== ENCOUNTER → 2025-11-09 10:14 | Outpatient (REF) | payer OTHER, SELFPAY ==
[2025-11-09 11:22] LABS: Hematocrit 33.5 % (37.0-47.0); Hemoglobin 10.9 g/dL (12.0-16.0); Mean Corp Hgb Conc. 32.5 g/dL (33.0-37.0); Mean Corpuscular Volume 105.3 fL (81.0-99.0); Nucleated Red Blood Cells % 0 %; Platelet Count 236 10^3/uL (130-400); Red Cell Dist. Width 16.4 % (11.5-14.5)
[2025-11-09 11:51] LABS: ALT (SGPT) 23 U/L (0-35); AST (SGOT) 31 U/L (14-36); Albumin 4.4 g/dl (3.5-5.0); Alkaline Phosphatase 106 U/L (38-126); Blood Urea Nitrogen 11 mg/dl (7-17); Calcium 9.2 mg/dl (8.4-10.2); Carbon Dioxide 25 mmol/L (22-30); Chloride 103 mmol/L (98-107); Glucose 85 mg/dl (70-99); LDH 265 U/L (120-246); Potassium 4.4 mmol/L (3.5-5.1); Sodium 135 mmol/L (135-145); Total Protein 6.8 g/dl (6.3-8.2); eGFR > 60.00
== END ==
LOC: REG 10:14
PROVIDERS: ATTENDING PHYSICIAN Nurse Practitioner Adult Health; FAMILY PHYSICIAN Family Medicine
DX: R23.3 Spontaneous ecchymoses (principal); R79.9 Abnormal finding of blood chemistry, unspecified; D50.9 Iron deficiency anemia, unspecified; D52.8 Other folate deficiency anemias; D68.00 Von Willebrand disease, unspecified; D51.9 Vitamin B12 deficiency anemia, unspecified; C83.30 Diffuse large B-cell lymphoma, unspecified site
CPT/HCPCS: 36415; 80053; 83615; 85025

== ENCOUNTER → 2025-11-09 12:39 | Outpatient (REF) | payer OTHER, SELFPAY | LOC: RAD 12:39 | PROVIDERS: ATTENDING PHYSICIAN Internal Medicine Hematology & Oncology; FAMILY PHYSICIAN Family Medicine | DX: R23.3 Spontaneous ecchymoses (principal); R79.9 Abnormal finding of blood chemistry, unspecified; D50.9 Iron deficiency anemia, unspecified; D52.8 Other folate deficiency anemias; D68.00 Von Willebrand disease, unspecified; D51.9 Vitamin B12 deficiency anemia, unspecified; C83.30 Diffuse large B-cell lymphoma, unspecified site; R22.42 Localized swelling, mass and lump, left lower limb | CPT/HCPCS: 93971 ==